=== PATIENT | female | born 1930 | race Caucasian/White ===

== ENCOUNTER 2016-10-22 09:15 | Observation (INO) | payer MEDICARE, BC ==
--- NOTE | 2016-10-22 09:36 | ED ---
General Adult HPI - General Stated complaint: chest pain Time Seen by Provider: 10/22/16 09:15 Source: RN notes reviewed - History of Present Illness Initial comments: This is an 86-year-old female comes in because of left-sided chest pain. Patient has an extremely poor historian. Patient does state the pain is underneath her breast is unable to coming what type of pain she is unable to tell me if there is any associated pain or radiation. Patient denies any increased difficulty breathing. Patient states her abdomen hurts as well. Patient is nonspecific as to where her abdomen hurts. Patient denies any recent fever. Patient denies a cough. Patient denies any nausea vomiting diarrhea. Patient denies any recent injury or trauma. Patient denies headache patient denies any numbness or focal weakness. - Related Data Home Medications Medication Instructions Recorded Confirmed Furosemide [Lasix] 40 mg PO QAM 04/19/15 10/22/16 NIFEdipine [NIFEdipine ER] 30 mg PO DAILY 01/07/16 10/22/16 ALPRAZolam [Xanax] 0.5 mg PO TID PRN 07/01/16 10/22/16 Furosemide [Lasix] 20 mg PO HS 07/01/16 10/22/16 Ibuprofen [Motrin] 400 mg PO Q12H PRN 10/22/16 10/22/16 Ondansetron Odt [Zofran Odt] 4 mg PO Q8H PRN 10/22/16 10/22/16 metFORMIN HCL [Glucophage] 1,000 mg PO BID-W/MEALS 10/22/16 10/22/16 Previous Rx's Medication Instructions Recorded Omeprazole [PriLOSEC] 20 mg PO AC-BRKFST #30 cap 12/16/15 Allergies Allergy/AdvReac Type Severity Reaction Status Date / Time aspirin AdvReac Abdominal Verified 10/22/16 09:48 Pain Review of Systems ROS Statement: Those systems with pertinent positive or pertinent negative responses have been documented in the HPI. ROS Other: All systems not noted in ROS Statement are negative. Past Medical History Past Medical History: Diabetes Mellitus, GERD/Reflux, Hyperlipidemia, Hypertension, Memory Impairment, Osteoarthritis (OA), Skin Disorder Additional Past Medical History / Comment(s): NIDDM type II, cervical pain- wears cervical collar, heart murmur, aortic stenosis, tricuspid regurgitation, ROSACEA, GOUT, ANEMIA, MIGARAINES,SINUS PROBLEMS, INCONT OF URINE-wears depends at night, short term memory prb, falls, vertigo, bilateral varicosities, lower leg/pedal edema at times. History of Any Multi-Drug Resistant Organisms: None Reported Past Surgical History: Hysterectomy Additional Past Surgical History / Comment(s): BOWEL NICKED DURING A COLONOSCOPY HAD SX TO CORRECT. MANUEL CATARACTS-LENS IMPLANTS, D&C, epidural injections to back Past Anesthesia/Blood Transfusion Reactions: No Reported Reaction Past Psychological History: Anxiety, Depression Additional Psychological History / Comment(s): Pt states she gets depressed sometimes d/t health problems but has no suicidal thoughts or plans. Pt's daughter AND granduaghter lives with her, pt stated gets up with use of cane, can care for self and cooks dinner for her daughter who works but just doing a few things around the house wears her out.pt is retired from the [employer] de[employer]. Smoking Status: Former smoker Past Alcohol Use History: None Reported Additional Past Alcohol Use History / Comment(s): SMOKED FOR 2 YEARS LESS THAN 1 PPD, QUIT 1955 Past Drug Use History: None Reported - Past Family History Mother Family Medical History: Myocardial Infarction ([place]) Additional Family Medical History / Comment(s): from [place] age 60 Father Additional Family Medical History / Comment(s): in his 80's from old age. General Exam - General Exam Comments Initial Comments: GENERAL: Patient is well-developed and well-nourished. Patient is nontoxic and well- hydrated and is in mild distress. ENT: Neck is soft and supple. No significant lymphadenopathy is noted. Oropharynx is clear. Moist mucous membranes. Neck has full range of motion without eliciting any pain. EYES: The sclera were anicteric and conjunctiva were pink and moist. Extraocular movements were intact and pupils were equal round and reactive to light. Eyelids were unremarkable. PULMONARY: Unlabored respirations. Good breath sounds bilaterally. No audible rales rhonchi or wheezing was noted. CARDIOVASCULAR: There is a regular rate and rhythm without any murmurs gallops or rubs. ABDOMEN: Soft and nontender with normal bowel sounds. No palpable organomegaly was noted. There is no palpable pulsatile mass. SKIN: Skin is clear with no lesions or rashes and otherwise unremarkable. NEUROLOGIC: Patient is alert and oriented x3. Cranial nerves II through XII are grossly intact. Motor and sensory are also intact. Normal speech, volume and content. Symmetrical smile. MUSCULOSKELETAL: Normal extremities with adequate strength and full range of motion. No lower extremity swelling or edema. No calf tenderness. LYMPHATICS: No significant lymphadenopathy is noted PSYCHIATRIC: Normal psychiatric evaluation. Normal interpersonal interactions appears functionally intact in deals appropriately with others. No signs of depression. No signs of anxiety. Course Vital Signs 10/22/16 10:10 Temperature 97.4 F L Pulse Rate 80 Respiratory 16 Rate Blood Pressure 174/93 O2 Sat by Pulse 98 Oximetry Medical Decision Making - Medical Decision Making EKG shows sinus bradycardia at 57 bpm. It was 228 QRSs 1:30 QT interval 472 QTC is 459. Patient's EKG has a right bundle branch block I compared the EKG to an old EKG and there were no acute changes noted. Chest x-ray shows no acute abnormality. I went back into reevaluate the patient she continues to have chest pain just under the left breast. I spoke with Dr. Bryan he agreed to admit the patient admitted the patient would be admitting orders. - Lab Data Result diagrams: 10/22/16 10:40 10/22/16 10:40 Lab Results 10/22/16 10/22/16 10/22/16 Range/Units 10:40 10:40 10:40 WBC 3.3 L (3.8-10.6) k/uL RBC 3.98 (3.80-5.40) m/uL Hgb 12.3 (11.4-16.0) gm/dL Hct 38.5 (34.0-46.0) % MCV 96.8 (80.0-100.0) fL MCH 30.9 (25.0-35.0) pg MCHC 31.9 (31.0-37.0) g/dL RDW 12.8 (11.5-15.5) % Plt Count 185 (150-450) k/uL Neutrophils % 59 % Lymphocytes % 28 % Monocytes % 6 % Eosinophils % 4 % Basophils % 1 % Neutrophils # 2.0 (1.3-7.7) k/uL Lymphocytes # 0.9 L (1.0-4.8) k/uL Monocytes # 0.2 (0-1.0) k/uL Eosinophils # 0.1 (0-0.7) k/uL Basophils # 0.0 (0-0.2) k/uL PT 10.0 (9.0-12.0) sec INR 1.0 (<1.1) APTT 23.1 (22.0-30.0) sec D-Dimer 0.40 (<0.60) mg/L FEU Sodium (137-145) mmol/L Potassium (3.5-5.1) mmol/L Chloride (98-107) mmol/L Carbon Dioxide (22-30) mmol/L Anion Gap mmol/L BUN (7-17) mg/dL Creatinine (0.52-1.04) mg/dL Est GFR (MDRD) Af Amer (>60 ml/min/1.73 sqM) Est GFR (MDRD) Non-Af (>60 ml/min/1.73 sqM) Glucose (74-99) mg/dL Plasma Lactic Acid Thad (0.7-2.0) mmol/L Calcium (8.4-10.2) mg/dL Magnesium (1.6-2.3) mg/dL Total Bilirubin (0.2-1.3) mg/dL AST (14-36) U/L ALT (9-52) U/L Alkaline Phosphatase (38-126) U/L Total Creatine Kinase 54 (30-135) U/L CK-MB (CK-2) 2.2 (0.0-2.4) ng/mL CK-MB (CK-2) Rel Index 4.1 Troponin I <0.012 (0.000-0.034) ng/mL NT-Pro-B Natriuret Pep pg/mL Total Protein (6.3-8.2) g/dL Albumin (3.5-5.0) g/dL Urine Color Urine Appearance (Clear) Urine pH (5.0-8.0) Ur Specific [place] (1.001-1.035) Urine Protein (Negative) Urine Glucose (UA) (Negative) Urine Ketones (Negative) Urine Blood (Negative) Urine Nitrate (Negative) Urine Bilirubin (Negative) Urine Urobilinogen (<2.0) mg/dL Ur Leukocyte Esterase (Negative) Urine RBC (0-5) /hpf Urine WBC (0-5) /hpf Urine Bacteria (None) /hpf Urine Mucus (None) /hpf 10/22/16 10/22/16 10/22/16 Range/Units 10:40 10:40 10:40 WBC (3.8-10.6) k/uL RBC (3.80-5.40) m/uL Hgb (11.4-16.0) gm/dL Hct (34.0-46.0) % MCV (80.0-100.0) fL MCH (25.0-35.0) pg MCHC (31.0-37.0) g/dL RDW (11.5-15.5) % Plt Count (150-450) k/uL Neutrophils % % Lymphocytes % % Monocytes % % Eosinophils % % Basophils % % Neutrophils # (1.3-7.7) k/uL Lymphocytes # (1.0-4.8) k/uL Monocytes # (0-1.0) k/uL Eosinophils # (0-0.7) k/uL Basophils # (0-0.2) k/uL PT (9.0-12.0) sec INR (<1.1) APTT (22.0-30.0) sec D-Dimer (<0.60) mg/L FEU Sodium 146 H (137-145) mmol/L Potassium 4.4 (3.5-5.1) mmol/L Chloride 103 (98-107) mmol/L Carbon Dioxide 30 (22-30) mmol/L Anion Gap 13 mmol/L BUN 26 H (7-17) mg/dL Creatinine 0.86 (0.52-1.04) mg/dL Est GFR (MDRD) Af Amer >60 (>60 ml/min/1.73 sqM) Est GFR (MDRD) Non-Af >60 (>60 ml/min/1.73 sqM) Glucose 133 H (74-99) mg/dL Plasma Lactic Acid Thad 1.1 (0.7-2.0) mmol/L Calcium 9.5 (8.4-10.2) mg/dL Magnesium 1.9 (1.6-2.3) mg/dL Total Bilirubin 0.5 (0.2-1.3) mg/dL AST 27 (14-36) U/L ALT 28 (9-52) U/L Alkaline Phosphatase 67 (38-126) U/L Total Creatine Kinase (30-135) U/L CK-MB (CK-2) (0.0-2.4) ng/mL CK-MB (CK-2) Rel Index Troponin I (0.000-0.034) ng/mL NT-Pro-B Natriuret Pep 316 pg/mL Total Protein 7.0 (6.3-8.2) g/dL Albumin 4.0 (3.5-5.0) g/dL Urine Color Urine Appearance (Clear) Urine pH (5.0-8.0) Ur Specific [place] (1.001-1.035) Urine Protein (Negative) Urine Glucose (UA) (Negative) Urine Ketones (Negative) Urine Blood (Negative) Urine Nitrate (Negative) Urine Bilirubin (Negative) Urine Urobilinogen (<2.0) mg/dL Ur Leukocyte Esterase (Negative) Urine RBC (0-5) /hpf Urine WBC (0-5) /hpf Urine Bacteria (None) /hpf Urine Mucus (None) /hpf 10/22/16 Range/Units 12:00 WBC (3.8-10.6) k/uL RBC (3.80-5.40) m/uL Hgb (11.4-16.0) gm/dL Hct (34.0-46.0) % MCV (80.0-100.0) fL MCH (25.0-35.0) pg MCHC (31.0-37.0) g/dL RDW (11.5-15.5) % Plt Count (150-450) k/uL Neutrophils % % Lymphocytes % % Monocytes % % Eosinophils % % Basophils % % Neutrophils # (1.3-7.7) k/uL Lymphocytes # (1.0-4.8) k/uL Monocytes # (0-1.0) k/uL Eosinophils # (0-0.7) k/uL Basophils # (0-0.2) k/uL PT (9.0-12.0) sec INR (<1.1) APTT (22.0-30.0) sec D-Dimer (<0.60) mg/L FEU Sodium (137-145) mmol/L Potassium (3.5-5.1) mmol/L Chloride (98-107) mmol/L Carbon Dioxide (22-30) mmol/L Anion Gap mmol/L BUN (7-17) mg/dL Creatinine (0.52-1.04) mg/dL Est GFR (MDRD) Af Amer (>60 ml/min/1.73 sqM) Est GFR (MDRD) Non-Af (>60 ml/min/1.73 sqM) Glucose (74-99) mg/dL Plasma Lactic Acid Thad (0.7-2.0) mmol/L Calcium (8.4-10.2) mg/dL Magnesium (1.6-2.3) mg/dL Total Bilirubin (0.2-1.3) mg/dL AST (14-36) U/L ALT (9-52) U/L Alkaline Phosphatase (38-126) U/L Total Creatine Kinase (30-135) U/L CK-MB (CK-2) (0.0-2.4) ng/mL CK-MB (CK-2) Rel Index Troponin I (0.000-0.034) ng/mL NT-Pro-B Natriuret Pep pg/mL Total Protein (6.3-8.2) g/dL Albumin (3.5-5.0) g/dL Urine Color Colorless Urine Appearance Clear (Clear) Urine pH 7.5 (5.0-8.0) Ur Specific [place] 1.005 (1.001-1.035) Urine Protein Negative (Negative) Urine Glucose (UA) Negative (Negative) Urine Ketones Negative (Negative) Urine Blood Negative (Negative) Urine Nitrate Negative (Negative) Urine Bilirubin Negative (Negative) Urine Urobilinogen <2.0 (<2.0) mg/dL Ur Leukocyte Esterase Trace H (Negative) Urine RBC <1 (0-5) /hpf Urine WBC 3 (0-5) /hpf Urine Bacteria Rare H (None) /hpf Urine Mucus Rare H (None) /hpf Disposition Clinical Impression: Chest pain Disposition: ADMITTED IP TO THIS [facility] Referrals: Scottie Bain DO [Primary Care Provider] - 1-2 days Time of Disposition: 12:58
--- NOTE | 2016-10-22 11:09 | XR ---
EXAMINATION TYPE: XR chest 2V DATE OF EXAM: 10/22/2016 11:03 AM HISTORY: Left-sided chest pain. REFERENCE: Previous study dated 07/01/2016. FINDINGS: The lungs are clear. The heart is mildly enlarged. Pleural spaces are clear. IMPRESSION: MILD CARDIOMEGALY.
[2016-10-22 11:52] LABS: ALT 28 U/L (9-52); AST 27 U/L (14-36); Alkaline Phosphatase 67 U/L (38-126); Anion Gap 13 mmol/L; Blood Urea Nitrogen 26 mg/dL (7-17); Calcium 9.5 mg/dL (8.4-10.2); Carbon Dioxide 30 mmol/L (22-30); Chloride 103 mmol/L (98-107); Glucose 133 mg/dL (74-99); Magnesium 1.9 mg/dL (1.6-2.3); Non-African American GFR(MDRD) >60 (>60 ml/min/1.73 sqM); Potassium 4.4 mmol/L (3.5-5.1); Sodium 146 mmol/L (137-145); Total Bilirubin 0.5 mg/dL (0.2-1.3)
[2016-10-22 11:53] LABS: Basophils % (A) 1 %; CH 30.7; CHCM 31.8; Eosinophils # (A) 0.1 k/uL (0-0.7); Eosinophils % (A) 4 %; HCT 38.5 % (34.0-46.0); HDW 2.36; HGB 12.3 gm/dL (11.4-16.0); Luc # (Auto) 0.09; Luc % (Auto) 3; Lymphocytes # (A) 0.9 k/uL (1.0-4.8); Lymphocytes % (A) 28 %; MCH 30.9 pg (25.0-35.0); MCHC 31.9 g/dL (31.0-37.0); MCV 96.8 fL (80.0-100.0); Mean Platelet Volume 6.8; Monocytes # (A) 0.2 k/uL (0-1.0); Monocytes % (A) 6 %; Neutrophils % (A) 59 %; RBC 3.98 m/uL (3.80-5.40); RDW 12.8 % (11.5-15.5); WBC 3.3 k/uL (3.8-10.6); WBC (Perox) 3.34
[2016-10-22 11:56] LABS: Creatine Kinase 54 U/L (30-135)
[2016-10-22 11:57] LABS: Partial Thromboplastin Time 23.1 sec (22.0-30.0)
[2016-10-22 12:08] LABS: Creatine Kinase MB 2.2 ng/mL (0.0-2.4); Troponin I <0.012 ng/mL (0.000-0.034)
[2016-10-22 12:44] LABS: Appearance,Urine Clear (Clear); Bacteria,Urine Rare /hpf; Bilirubin,Urine Negative (Negative); Glucose,Urine (UA) Negative (Negative); Ketones,Urine Negative (Negative); Leukocyte Esterase,Urine Trace (Negative); Mucus,Urine Rare /hpf; Nitrite,Urine Negative (Negative); PH, Urine 7.5 (5.0-8.0); Particle Count 27963; Protein,Urine Negative (Negative); RBC,Urine <1 /hpf (0-5); Specific Gravity,Urine 1.005 (1.001-1.035); UA Billing (MACRO vs. MICRO) MICRO; Urobilinogen,Urine <2.0 mg/dL (<2.0); WBC,Urine 3 /hpf (0-5)
[2016-10-22] MEDS ORDERED: NITROGLYCERIN SL TABS 0.4 MG TAB SUBLINGUAL PRN (12:58)
[2016-10-22] MEDS ORDERED: MORPHINE SULFATE 2 MG/ML SYRINGE IVP ONE (13:00)
[2016-10-22 18:38] LABS: Creatine Kinase MB 1.4 ng/mL (0.0-2.4); Troponin I 0.015 ng/mL (0.000-0.034)
[2016-10-22] MEDS ORDERED: ONDANSETRON ODT 4 MG TAB PO PRN (20:21)
[2016-10-22] MEDS ORDERED: ALPRAZolam 0.5 MG TAB PO PRN (20:21)
[2016-10-22 20:41] LABS: Glucose,Whole Blood 126 mg/dL (75-99)
[2016-10-22] MEDS: NITROGLYCERIN OINT 1 INCH/GM PACKET TOPICAL SCH (21:03)
[2016-10-22] MEDS: metFORMIN 500 MG TAB PO SCH (21:03)
[2016-10-22] MEDS: IBUPROFEN 400 MG TAB PO PRN (21:06)
[2016-10-22 23:39] LABS: Creatine Kinase MB 1.2 ng/mL (0.0-2.4); Troponin I 0.017 ng/mL (0.000-0.034)
[2016-10-23] MEDS: NITROGLYCERIN OINT 1 INCH/GM PACKET TOPICAL SCH ×3 (03:19→12:36)
[2016-10-23] MEDS: IBUPROFEN 400 MG TAB PO PRN (03:20)
[2016-10-23 07:15] LABS: Glucose,Whole Blood 114 mg/dL (75-99)
[2016-10-23] MEDS ORDERED: PANTOPRAZOLE 40 MG TABLET PO SCH (07:30)
[2016-10-23 07:39] LABS: Cholesterol 218 mg/dL (<200); HDL Cholesterol 53 mg/dL (40-60); Triglycerides 140 mg/dL (<150)
[2016-10-23] MEDS ORDERED: FUROSEMIDE 40 MG TAB PO SCH (09:00)
[2016-10-23] MEDS ORDERED: NIFEdipine XL 30 MG TAB.ER.24 PO SCH (09:00)
--- NOTE | 2016-10-23 09:57 | P.CRDCN ---
History of Present Illness Consult date: 10/23/16 History of present illness: This is a 86-year-old female who has been admitted to the hospital on several occasions with atypical chest pain. Patient again came to the hospital with complaints of pain under the left breast and left upper abdomen area associated with some tenderness. The pain doesn't seem to change too much with phase of respiration. Her cardiac enzymes are negative. EKGs showed similar findings as before with right bundle-branch block and nonspecific ST-T abnormalities. She does have moderate aortic stenosis and follows with Dr. Pearson regularly. Given her atypical chest pain and normal enzymes and also normal stress test done in September 2015, I'm not recommending any further cardiac workup. Patient could be treated symptomatically and be discharged. Follow-up with Dr. Pearson in one week time Review of Systems As per the chart Past Medical History Past Medical History: Chest Pain / Angina, Diabetes Mellitus, GERD/Reflux, Hyperlipidemia, Hypertension, Memory Impairment, Osteoarthritis (OA), Skin Disorder Additional Past Medical History / Comment(s): NIDDM type II, cervical pain- wears cervical collar, OA multiple joints, heart murmur, aortic stenosis, tricuspid regurgitation, ROSACEA, GOUT, ANEMIA, MIGARAINES,SINUS PROBLEMS, INCONT OF URINE-wears depends at night, short term memory prb, falls, vertigo, bilateral varicosities, lower leg/pedal edema at times. History of Any Multi-Drug Resistant Organisms: None Reported Past Surgical History: Hysterectomy Additional Past Surgical History / Comment(s): BOWEL NICKED DURING A COLONOSCOPY HAD SX TO CORRECT. MANUEL CATARACTS-LENS IMPLANTS, D&C, epidural injections to back Past Anesthesia/Blood Transfusion Reactions: No Reported Reaction Past Psychological History: Anxiety, Depression Additional Psychological History / Comment(s): Pt states she gets depressed sometimes d/t health problems but has no suicidal thoughts or plans. Pt's daughter AND granduaghter lives with her, pt stated gets up with use of cane, can care for self and cooks dinner for her daughter who works but just doing a few things around the house wears her out. 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 Smoking Status: Former smoker Past Alcohol Use History: None Reported Additional Past Alcohol Use History / Comment(s): SMOKED FOR 2 YEARS LESS THAN 1 PPD, QUIT 1956 Past Drug Use History: None Reported - Past Family History Mother Family Medical History: Myocardial Infarction ([place]) Additional Family Medical History / Comment(s): from [place] age 60 Father Additional Family Medical History / Comment(s): in his 80's from old age. Medications and Allergies Home Medications Medication Instructions Recorded Confirmed Type Furosemide [Lasix] 40 mg PO QAM 04/19/15 10/22/16 History NIFEdipine [NIFEdipine ER] 30 mg PO DAILY 01/07/16 10/22/16 History ALPRAZolam [Xanax] 0.5 mg PO TID PRN 07/01/16 10/22/16 History Furosemide [Lasix] 20 mg PO HS 07/01/16 10/22/16 History Ibuprofen [Motrin] 400 mg PO Q12H PRN 10/22/16 10/22/16 History Ondansetron Odt [Zofran Odt] 4 mg PO Q8H PRN 10/22/16 10/22/16 History metFORMIN HCL [Glucophage] 1,000 mg PO BID-W/MEALS 10/22/16 10/22/16 History Allergies Allergy/AdvReac Type Severity Reaction Status Date / Time aspirin AdvReac Abdominal Verified 10/22/16 09:48 Pain Physical Exam Vitals: Vital Signs Temp Pulse Pulse Resp BP BP Pulse Ox 10/23/16 08:00 52 L 18 10/23/16 07:15 97.5 F L 52 L 18 188/94 99 10/23/16 04:00 97.5 F L 56 L 16 183/82 97 10/23/16 00:00 53 L 16 10/22/16 23:57 97.6 F 53 L 16 135/63 96 10/22/16 20:00 98.8 F 67 16 163/66 99 10/22/16 19:16 98.1 F 12 172/74 100 10/22/16 18:00 98.1 F 59 L 18 152/69 97 10/22/16 15:23 56 L 18 160/71 98 10/22/16 14:52 98.7 F 57 L 16 157/68 Intake and Output 10/22/16 10/23/16 10/23/16 22:59 06:59 14:59 Other: # Voids 2 GENERAL EXAM: Patient is alert and oriented and doesn't appear to be in any acute distress HEENT: Normocephalic. Normal reaction of pupils, equal size, normal range of extraocular motion. No erythema or exudates in the throat. NECK: No masses, no nuchal rigidity. CHEST: No chest wall deformity. LUNGS: Equal air entry with no crackles or wheeze. HEART: S1 and S2 normal and systolic murmur heard in the aortic area ABDOMEN: No hepatosplenomegaly, normal bowel sounds, no guarding or rigidity. SKIN: No rashes CENTRAL NERVOUS SYSTEM: No focal deficits. EXTREMITIES: No cyanosis, clubbing or edema. Results 10/22/16 10:40 10/22/16 10:40 Cardiac Enzymes 10/22/16 10/22/16 Range/Units 17:38 22:51 CK-MB (CK-2) 1.4 1.2 (0.0-2.4) ng/mL Troponin I 0.015 0.017 (0.000-0.034) ng/mL Lipids 10/23/16 Range/Units 06:39 Triglycerides 140 (<150) mg/dL Cholesterol 218 H (<200) mg/dL HDL Cholesterol 53 (40-60) mg/dL Current Medications Generic Name Dose Route Start Last Admin Trade Name Freq PRN Reason Stop Dose Admin Alprazolam 0.5 mg 10/22/16 20:21 10/22/16 21:06 Xanax PO 0.5 mg TID PRN Administration Anxiety Furosemide 20 mg 10/23/16 15:00 Lasix PO DAILY@1500 [facility] Furosemide 40 mg 10/23/16 09:00 Lasix PO QAM [facility] Ibuprofen 400 mg 10/22/16 20:21 10/23/16 03:20 Motrin PO 400 mg Q12H PRN Administration Pain Metformin HCl 1,000 mg 10/22/16 20:30 10/22/16 21:03 Glucophage PO Not Given BID-W/MEALS [facility] Nifedipine 30 mg 10/23/16 09:00 Procardia Xl PO DAILY [facility] Nitroglycerin 1 inch 10/22/16 18:00 10/23/16 09:44 Nitro-Bid Oint TOPICAL Not Given Q6HR [facility] Nitroglycerin 0.4 mg 10/22/16 12:58 Nitrostat SUBLINGUAL Q5M PRN Chest Pain Ondansetron HCl 4 mg 01/04/17 20:21 Zofran Odt PO Q8H PRN Nausea Pantoprazole Sodium 40 mg 10/23/16 07:30 Protonix PO AC-BRKFST [facility] Intake and Output 10/22/16 10/23/16 10/23/16 22:59 06:59 14:59 Other: # Voids 2 EKG Interpretations (text) Sinus rhythm with a right bundle branch block and nonspecific ST-T changes Assessment and Plan (1) Chest pain Status: Acute (2) Aortic stenosis Status: Acute (3) Chest wall syndrome Status: Acute Plan: Her chest pains are atypical and noncardiac. Cardiac enzymes are negative. EKGs showed stable findings. She does have moderate aortic stenosis. She could be discharged home on symptomatic medical therapy and have follow-up with Dr. Pearson as an outpatient in one week.
[2016-10-23] MEDS: metFORMIN 500 MG TAB PO SCH (11:00)
[2016-10-23 12:02] VITALS: BP 204/100; PULSE 54; RESP 16; TEMP 97.7
[2016-10-23 12:31] LABS: Glucose,Whole Blood 146 mg/dL (75-99)
--- NOTE | 2016-10-23 14:37 | XR ---
EXAMINATION TYPE: XR foot complete LT DATE OF EXAM: 10/23/2016 2:28 PM CLINICAL HISTORY: pain TECHNIQUE: Frontal, lateral and oblique images of the left foot are obtained. COMPARISON: None. FINDINGS: There is no acute fracture/dislocation evident. The joint spaces appear within normal reilly its. The overlying soft tissue appears unremarkable. IMPRESSION: There is no acute fracture or dislocation. ICD 10 NO FRACTURE, INITIAL EVALUATION
[2016-10-23] MEDS ORDERED: FUROSEMIDE 20 MG TAB PO SCH (15:00)
--- NOTE | 2016-10-23 20:01 | HP ---
H&P and DISCHARGE SUMMARY DATE OF ADMISSION: This patient is an 86-year-old female who came in to the hospital with symptoms of atypical chest pain in the left breast area, left upper abdominal area, and some reproducible tenderness. Patient's pain is about 7/10 in severity; completely resolved at this point of time. ( ) for which I will obtain an x-ray. If that is negative, patient will be discharged. Patient is already on NSAID. Patient's chest pain is not associated with food, nonpleuritic in nature. Denied any lightheadedness or diaphoresis. Patient was evaluated by Cardiology. Troponins ( ) patient had a recent stress test in September 2015 which was negative. No further workup has been ( ) Cardiology and patient will be discharged today. REVIEW OF SYSTEMS: CONSTITUTIONAL: No fever, no malaise, no fatigue. HEENT: No recent visual problems or hearing problems. Denied any sore throat. CARDIOVASCULAR: As mentioned above. PULMONARY: No shortness of breath, no cough, no hemoptysis. GASTROINTESTINAL: No diarrhea, no nausea, no vomiting, no abdominal pain. Normoactive bowel sounds. NEUROLOGICAL: No headaches, no weakness, no numbness. HEMATOLOGICAL: Denies any bleeding or petechiae. GENITOURINARY: Denies any burning micturition, frequency, or urgency. MUSCULOSKELETAL/RHEUMATOLOGICAL: Denies any joint pain, swelling, or any muscle pain. ENDOCRINE: Denies any polyuria or polydipsia. The rest of the 14 point review of systems is negative. Past medical history is significant for: 1. Angina. 2. Diabetes mellitus. 3. Gastroesophageal reflux disease. 4. Hyperlipidemia. 5. Hyperlipidemia. 6. Memory impairment. 7. Osteoarthritis. 8. Skin disorder. 9. Tlu-udbaata-ogdkyltuz diabetes mellitus. 10. Cervical osteoarthritis. 11. Moderate aortic stenosis. 12. Tricuspid regurgitation. 13. Bilateral varicosities. 14. Anxiety. 15. Depression. SOCIAL HISTORY: Patient is a former smoker. Denied any alcohol abuse or any drug abuse. FAMILY HISTORY: Mother had myocardial infarction; at age 60. Father at age 80 because of old age. Home medications include: 1. Lasix. 2. Nifedipine. 3. Alprazolam. 4. Ibuprofen. 5. Ondansetron. 6. Metformin. ALLERGIES: ASPIRIN. PHYSICAL EXAMINATION: VITAL SIGNS: Temperature 97.5, pulse of 52, respiratory rate of 18. Blood pressure is 188/94. Saturating at 98% on room air. GENERAL: The patient is alert and oriented x3, not in any acute distress. Well developed, well nourished. HEENT: Pupils are round and equally reacting to light. EOMI. No scleral icterus. No conjunctival pallor. Normocephalic, atraumatic. No pharyngeal erythema. No thyromegaly. CARDIOVASCULAR: S1 and S2 present. No murmurs, rubs, or gallops. PULMONARY: Chest is clear to auscultation, no wheezing or crackles. ABDOMEN: Soft, nontender, nondistended, normoactive bowel sounds. No palpable organomegaly. MUSCULOSKELETAL: No joint swelling or deformity. EXTREMITIES: No cyanosis, clubbing, or pedal edema. NEUROLOGICAL: Gross neurological examination did not reveal any focal deficits. SKIN: No rashes. LABORATORY DATA: CBC, CMP, troponins, EKG all are negative. ASSESSMENT AND PLAN: 1. Chest pain, atypical in nature. No further intervention is necessary. Patient's chest pain is either psychosomatic or musculoskeletal in nature. Patient will be discharged today. 2. Depression and anxiety disorder. 3. Diabetes mellitus, type 2. 4. Gastroesophageal reflux disease. 5. Hypertension. For above-mentioned chronic medical problems, I will go ahead and continue her home medications. Patient has moderate aortic stenosis, asymptomatic at this point of time. No further intervention is being recommended by Cardiology at this time. This dictation is both H&P and discharge summary. Patient will follow up with her primary care physician in 3 to 7 days. Activity as tolerated. Cardiac and diabetic 2000-calorie diet.
== END 2016-10-23 15:30 | disposition home or self-care (01) ==
LOC: EC 09:15 → 3OBS 13:00
PROVIDERS: ADMIT Internal Medicine; ATTEND Internal Medicine
DX: R07.1 Chest pain on breathing (principal); F32.9 Major depressive disorder, single episode, unspecified; F41.9 Anxiety disorder, unspecified; E11.9 Type 2 diabetes mellitus without complications; K21.9 Gastro-esophageal reflux disease without esophagitis; I10 Essential (primary) hypertension; I08.2 Rheumatic disorders of both aortic and tricuspid valves; I45.10 Unspecified right bundle-branch block; E78.5 Hyperlipidemia, unspecified; M15.9 Polyosteoarthritis, unspecified; R41.3 Other amnesia; L71.9 Rosacea, unspecified; M10.9 Gout, unspecified; R32 Unspecified urinary incontinence; Z96.1 Presence of intraocular lens; Z79.899 Other long term (current) drug therapy; Z79.1 Long term (current) use of non-steroidal anti-inflammatories (NSAID); Z79.84 Long term (current) use of oral hypoglycemic drugs; Z87.891 Personal history of nicotine dependence; Z82.49 Family history of ischemic heart disease and other diseases of the circulatory system
CPT/HCPCS: 99285; 96374; 51798; 36415; 93005; 85379; 83880; 80061; 80053; 82550; 82553; 83605; 83735; 84484; 85025; 85610; 85730; 81001; 87040; 71020; 73630; G0378 ×2; J2270

== ENCOUNTER 2016-11-21 12:15 | Emergency (ER) | payer MEDICARE, BC ==
[2016-11-21 12:49] VITALS: BP 176/83; PULSE 59; RESP 16; TEMP 97.1
--- NOTE | 2016-11-21 13:07 | ED ---
General Adult HPI - General Chief complaint: Extremity Injury, Lower Stated complaint: lt hip pain Time Seen by Provider: 11/21/16 12:54 Source: patient, family, RN notes reviewed Mode of arrival: wheelchair Limitations: no limitations - History of Present Illness Initial comments: This is an 86yo female presents with left heel pain that started today. Patient states she may have hit the left foot with her cane but she is unsure. Patient states she noticed the pain while she was sleeping. Patient has been able to ambulate with a cane as usual. Patient denies any numbness/weakness/ tingling. Patient also complains of some pain to the medial aspect of the left ankle. Patient denies any right ankle or heel pain. Patient is not on any anticoagulants. Patient is a poor historian. Patient's daughter is present in the room with her today and states that patient normally has swelling to bilateral ankles. Patient is on Lasix. Daughter denies knowing of any falls or cause of the ankle pain. Patient denies any recent fever, chills, shortness breath, chest pain, abdominal pain, nausea/vomiting/diarrhea, back pain, hematuria, headache, or visual changes, or any other complaints. - Related Data Home Medications Medication Instructions Recorded Confirmed Furosemide [Lasix] 40 mg PO QAM 04/19/15 11/21/16 NIFEdipine [NIFEdipine ER] 30 mg PO DAILY 01/07/16 11/21/16 ALPRAZolam [Xanax] 0.5 mg PO TID PRN 07/01/16 11/21/16 Furosemide [Lasix] 20 mg PO HS 07/01/16 11/21/16 Ibuprofen [Motrin] 400 mg PO Q12H PRN 10/22/16 11/21/16 Ondansetron Odt [Zofran Odt] 4 mg PO Q8H PRN 10/22/16 11/21/16 metFORMIN HCL [Glucophage] 1,000 mg PO BID-W/MEALS 10/22/16 11/21/16 Previous Rx's Medication Instructions Recorded Omeprazole [PriLOSEC] 20 mg PO AC-BRKFST #30 cap 12/16/15 Allergies Allergy/AdvReac Type Severity Reaction Status Date / Time aspirin AdvReac Abdominal Verified 11/21/16 12:48 Pain Review of Systems ROS Statement: Those systems with pertinent positive or pertinent negative responses have been documented in the HPI. ROS Other: All systems not noted in ROS Statement are negative. Past Medical History Past Medical History: Chest Pain / Angina, Diabetes Mellitus, GERD/Reflux, Hyperlipidemia, Hypertension, Memory Impairment, Osteoarthritis (OA), Skin Disorder Additional Past Medical History / Comment(s): NIDDM type II, cervical pain- wears cervical collar, OA multiple joints, heart murmur, aortic stenosis, tricuspid regurgitation, ROSACEA, GOUT, ANEMIA, MIGARAINES,SINUS PROBLEMS, INCONT OF URINE-wears depends at night, short term memory prb, falls, vertigo, bilateral varicosities, lower leg/pedal edema at times. History of Any Multi-Drug Resistant Organisms: None Reported Past Surgical History: Hysterectomy Additional Past Surgical History / Comment(s): BOWEL NICKED DURING A COLONOSCOPY HAD SX TO CORRECT. MANUEL CATARACTS-LENS IMPLANTS, D&C, epidural injections to back Past Anesthesia/Blood Transfusion Reactions: No Reported Reaction Past Psychological History: Anxiety, Depression Additional Psychological History / Comment(s): Pt states she gets depressed sometimes d/t health problems but has no suicidal thoughts or plans. Pt's daughter AND granduaghter lives with her, pt stated gets up with use of cane, can care for self and cooks dinner for her daughter who works but just doing a few things around the house wears her out. 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 Smoking Status: Former smoker Past Alcohol Use History: None Reported Additional Past Alcohol Use History / Comment(s): SMOKED FOR 2 YEARS LESS THAN 1 PPD, QUIT 195 Past Drug Use History: None Reported - Past Family History Mother Family Medical History: Myocardial Infarction ([place]) Additional Family Medical History / Comment(s): from [place] age 60 Father Additional Family Medical History / Comment(s): in his 80's from old age. General Exam - General Exam Comments Initial Comments: General: The patient is awake and alert, in no distress, and does not appear acutely ill. Neck: The neck is supple, there is no tenderness or JVD. Cardiovascular: There is a regular rate and rhythm. No murmur, rub or gallop is appreciated. Respiratory: Lungs are clear to auscultation, respirations are non-labored, breath sounds are equal. No wheezes, stridor, rales, or rhonchi. Musculoskeletal: patient's socks are very tightfitting around the ankles. Patient is tender to palpation over the medial aspect of the left ankle and to the left heel. Patient has no tenderness to palpation of the left foot. Patient has no tenderness to palpation of the right ankle or foot. There is 2+ pitting edema to bilateral ankles and feet. The swelling is slightly worse in the left foot as compared to the right. There is tenderness to palpation over the plantar fascia and pain is increased with forced dorsiflexion of the toes of the left foot. Full range of motion, strength 5/5 and Sensation intact. Dorsalis pedis pulses are 2+ bilaterally. Capillary refill is normal at less than 2 seconds. No calf tenderness bilaterally. Neurological: A&O x 3. CN II-XII intact, There are no obvious motor or sensory deficits. Coordination appears grossly intact. Speech is normal. Skin: There is bilateral 1+ pitting edema to ankles and feet. Skin is warm and dry and no rashes or lesions are noted. Psychiatric: Normal mood and affect. Limitations: no limitations Course Vital Signs 11/21/16 12:45 Temperature 97.1 F L Pulse Rate 59 L Respiratory 16 Rate Blood Pressure 176/83 O2 Sat by Pulse 99 Oximetry Medical Decision Making - Medical Decision Making Is an 86-year-old female who presents with left heel pain and left ankle pain started this morning. Patient is a poor historian and daughters present in the room. Neither patient or daughter knows the trigger of the left ankle/heel pain. On physical exam patient's socks are very tightfitting around the ankles. Patient is tender to palpation over the medial aspect of the left ankle and to the left heel. Patient has no tenderness to palpation of the left foot. Patient has no tenderness to palpation of the right ankle or foot. There is 2+ pitting edema to bilateral ankles and feet. The swelling is slightly worse in the left foot as compared to the right. There is tenderness to palpation over the plantar fascia and pain is increased with forced flexion of the toes of the left foot. Full range of motion, strength 5/5 and Sensation intact. Dorsalis pedis pulses are 2+ bilaterally. Capillary refill is normal at less than 2 seconds. No calf tenderness bilaterally. An x-ray of the left ankle and foot was done and reviewed showing: X-ray left ankle: There is no acute fracture or dislocation in the left ankle. Demineralization and moderate diffuse subcutaneous edema noted. Report reviewed by Dr. Mendez. X-ray left foot: There is new moderate diffuse subcutaneous edema on the left foot. Report red by Dr. Mendez. I discussed results with patient and her daughter. I discussed looser fitting socks to help prevent the tightening of the socks around the ankle causing increased swelling in the feet. Discussed that the swelling could be the cause of her pain. Discussed that plantar fasciitis can sometimes cause heel pain. Discussed [id number] Tylenol or Motrin as needed for any pain. I discussed that If symptoms do not improve in the next 7 days repeat x-rays may be needed to rule out occult fracture. Patient has no history of trauma or injury to the left foot. Patient has been walking without difficulty according to daughter. Patient is already on Lasix. Discussed rest, ice and elevating the legs. I discussed return parameters. I discussed that the patient should follow-up with her primary care physician tomorrow. I discussed the patient to return to the [facility] for any worsening symptoms or for any further concerns. Discussed that patient should follow up with PCP in one to 2 days or return to the [facility] for any worsening symptoms or for any further concerns. Patient was receptive to this plan and patient will be discharged home. I discussed his case with attending physician Dr. Apodaca who agrees the plan as stated above. Disposition Clinical Impression: Pain of left heel Disposition: HOME SELF-CARE Condition: Good Instructions: Plantar Fasciitis (ED) Additional Instructions: Please rest, ice, elevate and use looser socks to prevent excess swelling in the feet. Please follow-up with her primary care physician tomorrow. Please use [id number] Tylenol and or Motrin as needed for any pain. If symptoms do not improve in the next 7 days repeat x-rays may be needed to rule out occult fracture. Please follow-up with family doctor in the next 2 days of symptoms have not improved. Please return to emergency room if the symptoms increase or worsen or for any other concerns. Referrals: Scottie Bain DO [Primary Care Provider] - 1-2 days Time of Disposition: 13:45
--- NOTE | 2016-11-21 13:31 | XR ---
EXAMINATION TYPE: XR ankle complete LT DATE OF EXAM: 11/21/2016 1:18 PM CLINICAL HISTORY: Swelling and bruising with pain. TECHNIQUE: Frontal, lateral and oblique images of the left ankle are obtained. COMPARISON: None. FINDINGS: Osseous structures are demineralized which is noted to lower radiographic sensitivity Ther e is no acute fracture/dislocation evident in the left ankle. The ankle mortise appears within adelaide l limits. Small superior calcaneal spur is present. Moderate diffuse subcutaneous edema is seen. Vasc ular desiccation in the posterior soft tissue is noted. IMPRESSION: There is no acute fracture or dislocation in the left ankle. Demineralization and modera te diffuse subcutaneous edema noted.
--- NOTE | 2016-11-21 13:32 | XR ---
EXAMINATION TYPE: XR foot limited LT DATE OF EXAM: 11/21/2016 1:18 PM CLINICAL HISTORY: Swelling and bruising left foot. TECHNIQUE: Frontal, and lateral images of the left foot are obtained. COMPARISON: Left foot x-ray October 23, 2016. FINDINGS: Osseous structures are demineralized which is noted to lower radiographic sensitivity. The re is no acute fracture/dislocation evident in the left foot. The joint spaces in the left foot appe ar within normal limits. Moderate diffuse subcutaneous edema is present with progression from prior s tudy identified, for reference dorsal surface metatarsal level on lateral view. IMPRESSION: There is new moderate diffuse subcutaneous edema in the left foot.
== END 2016-11-21 14:21 | disposition home or self-care (01) ==
LOC: EC 12:15
DX: M79.672 Pain in left foot (principal); I10 Essential (primary) hypertension; M25.572 Pain in left ankle and joints of left foot; E11.9 Type 2 diabetes mellitus without complications; M19.90 Unspecified osteoarthritis, unspecified site; M54.2 Cervicalgia; F41.9 Anxiety disorder, unspecified; R32 Unspecified urinary incontinence; Z87.891 Personal history of nicotine dependence; Z79.899 Other long term (current) drug therapy; Z79.84 Long term (current) use of oral hypoglycemic drugs; Z88.6 Allergy status to analgesic agent
CPT/HCPCS: 99284

== ENCOUNTER 2017-09-14 18:46 | Emergency (ER) | payer MEDICARE, BC ==
[2017-09-14 19:18] VITALS: RESP 18
--- NOTE | 2017-09-14 21:21 | ED ---
General Adult HPI - General Chief complaint: Extremity Injury, Lower Stated complaint: R foot injury Time Seen by Provider: 09/14/17 21:05 Source: patient, family, RN notes reviewed Mode of arrival: wheelchair Limitations: no limitations - History of Present Illness Initial comments: 87-year-old female presents to the emergency department with a chief complaint of right foot pain. Patient states that she ran in to furniture and her regimen since had pain to the right foot. She is able to ambulate. She has noticed some bruising along the foot and states it is painful to touch the right big toe. There has been no other symptoms in the patient. She states she chronically is bilateral lower extremity swelling and that is not changed. Patient denies any recent fever, chills, shortness of breath, chest pain, back pain, abdominal pain, nausea vomiting, numbness or tingling, dysuria or hematuria, constipation or diarrhea, headaches or visual changes, or any other current symptoms. - Related Data Home Medications Medication Instructions Recorded Confirmed Furosemide [Lasix] 40 mg PO QAM 04/19/15 11/21/16 NIFEdipine [NIFEdipine ER] 30 mg PO DAILY 01/07/16 11/21/16 ALPRAZolam [Xanax] 0.5 mg PO TID PRN 07/01/16 11/21/16 metFORMIN HCL [Glucophage] 1,000 mg PO BID-W/MEALS 10/22/16 11/21/16 Previous Rx's Medication Instructions Recorded Omeprazole [PriLOSEC] 20 mg PO AC-BRKFST #30 cap 12/16/15 Allergies Allergy/AdvReac Type Severity Reaction Status Date / Time aspirin AdvReac Abdominal Verified 09/14/17 19:18 Pain Review of Systems ROS Statement: Those systems with pertinent positive or pertinent negative responses have been documented in the HPI. ROS Other: All systems not noted in ROS Statement are negative. Past Medical History Past Medical History: Chest Pain / Angina, Diabetes Mellitus, GERD/Reflux, Hyperlipidemia, Hypertension, Memory Impairment, Osteoarthritis (OA), Skin Disorder Additional Past Medical History / Comment(s): NIDDM type II, cervical pain- wears cervical collar, OA multiple joints, heart murmur, aortic stenosis, tricuspid regurgitation, ROSACEA, GOUT, ANEMIA, MIGARAINES,SINUS PROBLEMS, INCONT OF URINE-wears depends at night, short term memory prb, falls, vertigo, bilateral varicosities, lower leg/pedal edema at times. History of Any Multi-Drug Resistant Organisms: None Reported Past Surgical History: Hysterectomy Additional Past Surgical History / Comment(s): BOWEL NICKED DURING A COLONOSCOPY HAD SX TO CORRECT. MANUEL CATARACTS-LENS IMPLANTS, D&C, epidural injections to back Past Anesthesia/Blood Transfusion Reactions: No Reported Reaction Past Psychological History: Anxiety, Depression Smoking Status: Former smoker Past Alcohol Use History: None Reported Past Drug Use History: None Reported - Past Family History Mother Family Medical History: Myocardial Infarction ([place]) Additional Family Medical History / Comment(s): from [place] age 60 Father Additional Family Medical History / Comment(s): in his 80's from old age. General Exam - General Exam Comments Initial Comments: General: The patient is awake and alert, in no distress, and does not appear acutely ill. Neck: The neck is supple, there is no tenderness. Cardiovascular: There is a regular rate and rhythm. No murmur, rub or gallop is appreciated. Respiratory: Lungs are clear to auscultation, respirations are non-labored, breath sounds are equal. No wheezes, stridor, rales, or rhonchi. Musculoskeletal: Sensation intact with 2+ pulses. Right lower externa. Full range of motion of the right Foot. Tenderness to patient along the first toe. Some associated ecchymosis noted. Some swelling to the top of her. Patient does appear to have equal bilateral pedal edema. Neurological: CN II-XII intact, There are no obvious motor or sensory deficits. Coordination appears grossly intact. Speech is normal. Skin: Skin is warm and dry and no rashes or lesions are noted. Psychiatric: Normal mood and affect. Limitations: no limitations Course Vital Signs 09/14/17 19:13 Temperature 99 F Pulse Rate 67 Respiratory 18 Rate Blood Pressure 149/69 O2 Sat by Pulse 99 Oximetry Medical Decision Making - Medical Decision Making 87-year-old female emergency department with chief complaint of right foot pain. At this time x-rays reviewed and negative. This time we discussed ice i- STAT Tylenol for the pain. Discussed follow-up return parameters all questions. Patient family stated the [place] management this plan. All questions have been answered. They will be discharged. - Radiology Data Radiology results: report reviewed, image reviewed Disposition Clinical Impression: Contusion of right foot Disposition: HOME SELF-CARE Condition: Stable Instructions: Foot Contusion (ED) Additional Instructions: Please use medication as discussed. Please follow up with family doctor if symptoms have not improved over the next two days. Please return to the emergency room if your symptoms increase or worsen or for any other concerns. Referrals: Scottie Bain DO [Primary Care Provider] - 1-2 days Time of Disposition: 22:09
--- NOTE | 2017-09-14 22:03 | XR ---
EXAMINATION TYPE: XR foot complete RT DATE OF EXAM: 09/14/2017 COMPARISON: NONE HISTORY: Foot pain TECHNIQUE: 3 views FINDINGS: There is osteopenia. Metatarsals appear intact. There is a plantar calcaneal spur. I see no fracture nor dislocation. There is soft tissue swelling of the forefoot. IMPRESSION: Soft tissue swelling. No fracture seen.
[2017-09-14 22:31] VITALS: BP 138/68; PULSE 71; TEMP 99
== END 2017-09-14 22:20 | disposition home or self-care (01) ==
LOC: EC 18:46
DX: S90.31XA Contusion of right foot, initial encounter (principal); R60.0 Localized edema; I10 Essential (primary) hypertension; E11.9 Type 2 diabetes mellitus without complications; Z87.891 Personal history of nicotine dependence; Z79.84 Long term (current) use of oral hypoglycemic drugs; Z79.899 Other long term (current) drug therapy; Z88.6 Allergy status to analgesic agent; Z86.79 Personal history of other diseases of the circulatory system; W22.8XXA Striking against or struck by other objects, initial encounter
CPT/HCPCS: 99283

== ENCOUNTER 2017-12-03 15:17 | Inpatient (IN) | payer MEDICARE, BC ==
--- NOTE | 2017-12-03 18:42 | ED ---
Extremity Problem HPI - General Chief complaint: Extremity Problem,Nontraumatic Stated complaint: Foot Pain Time Seen by Provider: 12/03/17 18:25 Source: patient, family Mode of arrival: wheelchair Limitations: physical limitation - History of Present Illness Initial comments: 87-year-old female patient presents with daughter for evaluation of bilateral lower extremity swelling. Daughter states that swelling has been present for "months". States that she was being treated by her primary care physician with Lasix. States that she was taking 2 tablets a day and he decreased her down to one per day. States that the swelling has worsened over the last 3 days since that switch. She states that the patient's legs are very red. States that there is a wound to the bottom of her right foot which was found by the interdisciplinary professor today. He recommended immediate intervention for the wound. Daughter reports the patient is also been increasingly confused over the last month. She states that she has had no appetite. She is concerned for urinary tract infection. She denies any recent falls or trauma. Denies any recent medication changes other than the Lasix. Patient denies any recent rash, fever, chills, shortness breath, chest pain, abdominal pain, nausea, vomiting, diarrhea , constipation, back pain, numbness, tingling, dizziness, hematuria, dysuria, urinary urgency, urinary frequency, headache, visual changes, or any other complaints. - Related Data Home Medications Medication Instructions Recorded Confirmed Furosemide [Lasix] 20 mg PO QAM 04/19/15 12/03/17 metFORMIN HCL [Glucophage] 1,000 mg PO BID-W/MEALS 10/22/16 12/03/17 Ferrous Sulfate [Feosol] 325 mg PO DAILY 12/03/17 12/03/17 Loratadine [Claritin] 10 mg PO DAILY 12/03/17 12/03/17 Allergies Allergy/AdvReac Type Severity Reaction Status Date / Time aspirin AdvReac Abdominal Verified 12/03/17 18:59 Pain Review of Systems ROS Statement: Those systems with pertinent positive or pertinent negative responses have been documented in the HPI. ROS Other: All systems not noted in ROS Statement are negative. Past Medical History Past Medical History: Chest Pain / Angina, Diabetes Mellitus, GERD/Reflux, Hyperlipidemia, Hypertension, Memory Impairment, Osteoarthritis (OA), Skin Disorder Additional Past Medical History / Comment(s): NIDDM type II, cervical pain- wears cervical collar, OA multiple joints, heart murmur, aortic stenosis, tricuspid regurgitation, ROSACEA, GOUT, ANEMIA, MIGARAINES,SINUS PROBLEMS, INCONT OF URINE-wears depends at night, short term memory prb, falls, vertigo, bilateral varicosities, lower leg/pedal edema at times. History of Any Multi-Drug Resistant Organisms: None Reported Past Surgical History: Hysterectomy Additional Past Surgical History / Comment(s): BOWEL NICKED DURING A COLONOSCOPY HAD SX TO CORRECT. MANUEL CATARACTS-LENS IMPLANTS, D&C, epidural injections to back Past Anesthesia/Blood Transfusion Reactions: No Reported Reaction Past Psychological History: Anxiety, Depression Smoking Status: Former smoker Past Alcohol Use History: None Reported Past Drug Use History: None Reported - Past Family History Mother Family Medical History: Myocardial Infarction ([place]) Additional Family Medical History / Comment(s): from [place] age 60 Father Additional Family Medical History / Comment(s): in his 80's from old age. General Exam Limitations: physical limitation General appearance: alert, in no apparent distress, other (This is a well- developed, well-nourished elderly female patient in no acute distress. Vital signs upon presentation are temperature 99.1F, pulse 56, respirations 18, blood pressure 192/79, pulse ox 99% on room air.) Eye exam: Present: normal appearance, PERRL, EOMI. Absent: scleral icterus, conjunctival injection, periorbital swelling ENT exam: Present: normal exam, normal oropharynx, mucous membranes moist Respiratory exam: Present: normal lung sounds bilaterally. Absent: respiratory distress, wheezes, rales, rhonchi, stridor Cardiovascular Exam: Present: normal rhythm, bradycardia, normal heart sounds. Absent: systolic murmur, diastolic murmur, rubs, gallop, clicks GI/Abdominal exam: Present: soft, normal bowel sounds. Absent: distended, tenderness, guarding, rebound, rigid Extremities exam: Present: full ROM, normal capillary refill, other (Patient has lower extremity edema extending from below the knee to the feet. Edema in the legs is 3+ pitting, edema in the feet is 2+ pitting. There is erythema surrounding both lower legs. There is a ulcer noted to the right forefoot just beneath the great toe. This wound is dry with a central area of what appears to be necrotic tissue.). Absent: normal inspection, tenderness, joint swelling , calf tenderness Neurological exam: Present: alert, CN II-XII intact. Absent: oriented X3 ( Oriented 2) Psychiatric exam: Present: normal mood, flat affect Skin exam: Present: warm, dry, intact, normal color. Absent: rash Course Vital Signs 12/03/17 15:48 Temperature 99.1 F Pulse Rate 56 L Respiratory 18 Rate Blood Pressure 192/79 O2 Sat by Pulse 99 Oximetry Medical Decision Making - Medical Decision Making 87-year-old female patient presented to the emergency department today for evaluation of confusion and lack of appetite for the last month. She is also experiencing lower extremity edema. Physical examination did reveal edema and erythema to the bilateral lower extremities. Edema is 2-3+. There is a small wound to the right forefoot that appears to be possibly a ulcer. Urinalysis was positive for urinary tract infection. BNP is 2330. This seems to be a new finding for the patient so we will admit at this time. Did speak to Sonja DENTON from Dr. Moura's service, she accepts. We will start antibiotics, IV lasix. Family informed of results and plan. - Lab Data Result diagrams: 12/03/17 19:09 12/03/17 19:09 Lab Results 12/03/17 12/03/17 12/03/17 Range/Units 19:09 19:09 19:09 WBC 5.3 (3.8-10.6) k/uL RBC 4.17 (3.80-5.40) m/uL Hgb 12.6 (11.4-16.0) gm/dL Hct 38.9 (34.0-46.0) % MCV 93.4 (80.0-100.0) fL MCH 30.2 (25.0-35.0) pg MCHC 32.4 (31.0-37.0) g/dL RDW 12.6 (11.5-15.5) % Plt Count 190 (150-450) k/uL Neutrophils % 57 % Lymphocytes % 31 % Monocytes % 6 % Eosinophils % 2 % Basophils % 1 % Neutrophils # 3.1 (1.3-7.7) k/uL Lymphocytes # 1.7 (1.0-4.8) k/uL Monocytes # 0.3 (0-1.0) k/uL Eosinophils # 0.1 (0-0.7) k/uL Basophils # 0.0 (0-0.2) k/uL Sodium 142 (137-145) mmol/L Potassium 3.5 (3.5-5.1) mmol/L Chloride 100 (98-107) mmol/L Carbon Dioxide 29 (22-30) mmol/L Anion Gap 13 mmol/L BUN 26 H (7-17) mg/dL Creatinine 1.02 (0.52-1.04) mg/dL Est GFR (MDRD) Af Amer >60 (>60 ml/min/1.73 sqM) Est GFR (MDRD) Non-Af 52 (>60 ml/min/1.73 sqM) Glucose 126 H (74-99) mg/dL Calcium 9.7 (8.4-10.2) mg/dL Total Bilirubin 0.3 (0.2-1.3) mg/dL AST 23 (14-36) U/L ALT 15 (9-52) U/L Alkaline Phosphatase 84 (38-126) U/L NT-Pro-B Natriuret Pep 2330 pg/mL Total Protein 7.1 (6.3-8.2) g/dL Albumin 4.0 (3.5-5.0) g/dL Urine Color Urine Appearance (Clear) Urine pH (5.0-8.0) Ur Specific [place] (1.001-1.035) Urine Protein (Negative) Urine Glucose (UA) (Negative) Urine Ketones (Negative) Urine Blood (Negative) Urine Nitrite (Negative) Urine Bilirubin (Negative) Urine Urobilinogen (<2.0) mg/dL Ur Leukocyte Esterase (Negative) Urine RBC (0-5) /hpf Urine WBC (0-5) /hpf Ur Squamous Epith Cells (0-4) /hpf Urine Bacteria (None) /hpf Hyaline Casts (0-2) /lpf Urine Mucus (None) /hpf 12/03/17 Range/Units 19:09 WBC (3.8-10.6) k/uL RBC (3.80-5.40) m/uL Hgb (11.4-16.0) gm/dL Hct (34.0-46.0) % MCV (80.0-100.0) fL MCH (25.0-35.0) pg MCHC (31.0-37.0) g/dL RDW (11.5-15.5) % Plt Count (150-450) k/uL Neutrophils % % Lymphocytes % % Monocytes % % Eosinophils % % Basophils % % Neutrophils # (1.3-7.7) k/uL Lymphocytes # (1.0-4.8) k/uL Monocytes # (0-1.0) k/uL Eosinophils # (0-0.7) k/uL Basophils # (0-0.2) k/uL Sodium (137-145) mmol/L Potassium (3.5-5.1) mmol/L Chloride (98-107) mmol/L Carbon Dioxide (22-30) mmol/L Anion Gap mmol/L BUN (7-17) mg/dL Creatinine (0.52-1.04) mg/dL Est GFR (MDRD) Af Amer (>60 ml/min/1.73 sqM) Est GFR (MDRD) Non-Af (>60 ml/min/1.73 sqM) Glucose (74-99) mg/dL Calcium (8.4-10.2) mg/dL Total Bilirubin (0.2-1.3) mg/dL AST (14-36) U/L ALT (9-52) U/L Alkaline Phosphatase (38-126) U/L NT-Pro-B Natriuret Pep pg/mL Total Protein (6.3-8.2) g/dL Albumin (3.5-5.0) g/dL Urine Color Yellow Urine Appearance Cloudy H (Clear) Urine pH 5.0 (5.0-8.0) Ur Specific [place] 1.013 (1.001-1.035) Urine Protein Trace H (Negative) Urine Glucose (UA) Negative (Negative) Urine Ketones Negative (Negative) Urine Blood Trace H (Negative) Urine Nitrite Positive H (Negative) Urine Bilirubin Negative (Negative) Urine Urobilinogen <2.0 (<2.0) mg/dL Ur Leukocyte Esterase Moderate H (Negative) Urine RBC 2 (0-5) /hpf Urine WBC 24 H (0-5) /hpf Ur Squamous Epith Cells 3 (0-4) /hpf Urine Bacteria Many H (None) /hpf Hyaline Casts 2 (0-2) /lpf Urine Mucus Occasional H (None) /hpf - EKG Data EKG Comments: EKG obtained at 2003 shows sinus rhythm with frequent premature ventricular complexes and premature atrial complexes. Left axis deviation. Right bundle michelle block. Ventricular rate is 60, P return to full stool 2, QRS duration is 138, QTC 450, QTC 450. Did review EKG from 10/23/2016, changes appear chronic. - Radiology Data Radiology results: report reviewed, image reviewed Two-view x-ray of the chest shows no heart failure nor confluent pneumonic infiltrate. Thoracic aorta is atheromatous. There is no pleural effusion. Bony thorax is intact. Impression by Dr. Torres shows no active cardiopulmonary disease. No change. Disposition Clinical Impression: Urinary tract infection, CHF (congestive heart failure), Lower extremity edema Disposition: ADMITTED IP TO THIS HOSP Condition: Serious Referrals: Scottie Bain DO [Primary Care Provider] - 1-2 days Decision to Admit Reason: Admit from EC Decision Date: 12/03/17 Decision Time: 20:20
[2017-12-03 19:20] LABS: Basophils % (A) 1 %; Eosinophils # (A) 0.1 k/uL (0-0.7); Eosinophils % (A) 2 %; HCT 38.9 % (34.0-46.0); HGB 12.6 gm/dL (11.4-16.0); Lymphocytes # (A) 1.7 k/uL (1.0-4.8); Lymphocytes % (A) 31 %; MCH 30.2 pg (25.0-35.0); MCHC 32.4 g/dL (31.0-37.0); MCV 93.4 fL (80.0-100.0); Mean Platelet Volume 7.3; Monocytes # (A) 0.3 k/uL (0-1.0); Monocytes % (A) 6 %; Neutrophils # (A) 3.1 k/uL (1.3-7.7); Neutrophils % (A) 57 %; Platelet Count 190 k/uL (150-450); RBC 4.17 m/uL (3.80-5.40); RDW 12.6 % (11.5-15.5); WBC 5.3 k/uL (3.8-10.6)
[2017-12-03 19:21] LABS: Appearance,Urine Cloudy (Clear); Bacteria,Urine Many /hpf; Bilirubin,Urine Negative (Negative); Blood,Urine Trace (Negative); Color,Urine Yellow; Glucose,Urine (UA) Negative (Negative); Hyaline Casts,Urine 2 /lpf (0-2); Ketones,Urine Negative (Negative); Leukocyte Esterase,Urine Moderate (Negative); Mucus,Urine Occasional /hpf; Nitrite,Urine Positive (Negative); Protein,Urine Trace (Negative); RBC,Urine 2 /hpf (0-5); Specific Gravity,Urine 1.013 (1.001-1.035); Squamous Epithelial Cell,Urine 3 /hpf (0-4); Urobilinogen,Urine <2.0 mg/dL (<2.0); WBC,Urine 24 /hpf (0-5)
[2017-12-03 19:30] LABS: ALT 15 U/L (9-52); AST 23 U/L (14-36); Alkaline Phosphatase 84 U/L (38-126); Anion Gap 13 mmol/L; Blood Urea Nitrogen 26 mg/dL (7-17); Calcium 9.7 mg/dL (8.4-10.2); Carbon Dioxide 29 mmol/L (22-30); Chloride 100 mmol/L (98-107); Glucose 126 mg/dL (74-99); Potassium 3.5 mmol/L (3.5-5.1); Sodium 142 mmol/L (137-145); Total Bilirubin 0.3 mg/dL (0.2-1.3); Total Protein 7.1 g/dL (6.3-8.2)
--- NOTE | 2017-12-03 19:47 | XR ---
EXAMINATION TYPE: XR chest 2V DATE OF EXAM: 12/03/2017 COMPARISON: 10/22/2016 HISTORY: Fever TECHNIQUE: Frontal and lateral views of the chest are obtained. FINDINGS: There is no heart failure nor confluent pneumonic infiltrate. Thoracic aorta is atheromato us. There is no pleural effusion. Bony thorax is intact. IMPRESSION: No active cardiopulmonary disease. No change.
[2017-12-03] MEDS ORDERED: NALOXONE 0.4 MG/ML 1 ML VIAL IV PRN (20:16)
[2017-12-03] MEDS ORDERED: FUROSEMIDE 10 MG/ML 4 ML VIAL IV STA (20:18)
[2017-12-03] MEDS ORDERED: cefTRIAXone IN SWFI 1,000 MG/10 ML SYRINGE IVP STA (20:22)
[2017-12-03] MEDS ORDERED: ACETAMINOPHEN TAB 325 MG TAB PO STA (20:33)
[2017-12-03] MEDS ORDERED: ACETAMINOPHEN TAB 325 MG TAB PO PRN (20:33)
[2017-12-03] MEDS ORDERED: ENALAPRILAT 1.25 MG/ML 1 ML VIAL IVP PRN (21:26)
[2017-12-03] MEDS ORDERED: ENALAPRILAT 1.25 MG/ML 1 ML VIAL IVP STA (21:26)
[2017-12-03] MEDS ORDERED: cloNIDine HCL 0.1 MG TAB PO STA (22:32)
[2017-12-04] MEDS: FERROUS SULFATE 325 MG TAB PO SCH (07:32)
[2017-12-04] MEDS: metFORMIN 500 MG TAB PO SCH ×2 (07:32→17:35)
[2017-12-04 07:44] LABS: Glucose,Whole Blood 134 mg/dL (75-99)
[2017-12-04 08:38] LABS: Basophils % (A) 1 %; Eosinophils # (A) 0.1 k/uL (0-0.7); Eosinophils % (A) 3 %; HCT 38.2 % (34.0-46.0); HGB 12.1 gm/dL (11.4-16.0); Lymphocytes # (A) 1.5 k/uL (1.0-4.8); Lymphocytes % (A) 31 %; MCHC 31.6 g/dL (31.0-37.0); Mean Platelet Volume 7.4; Monocytes # (A) 0.4 k/uL (0-1.0); Monocytes % (A) 7 %; Neutrophils # (A) 2.6 k/uL (1.3-7.7); Neutrophils % (A) 56 %; Platelet Count 179 k/uL (150-450); RBC 4.03 m/uL (3.80-5.40); RDW 12.7 % (11.5-15.5); WBC 4.7 k/uL (3.8-10.6)
[2017-12-04 08:50] LABS: Calcium 9.8 mg/dL (8.4-10.2); Potassium 3.8 mmol/L (3.5-5.1)
[2017-12-04] MEDS ORDERED: FUROSEMIDE 10 MG/ML 2 ML VIAL IV SCH (09:00)
[2017-12-04] MEDS ORDERED: ENOXAPARIN 40 MG/0.4 ML SYRINGE SQ SCH (09:00)
[2017-12-04] MEDS ORDERED: cloNIDine HCL 0.1 MG TAB PO SCH (09:00)
[2017-12-04] MEDS ORDERED: LORATADINE 10 MG TAB PO SCH (09:00)
[2017-12-04] MEDS: cefTRIAXone IN SWFI 1,000 MG/10 ML SYRINGE IVP SCH (09:16)
[2017-12-04 12:08] LABS: Glucose,Whole Blood 141 mg/dL (75-99)
[2017-12-04] MEDS ORDERED: LACTATED RINGERS 1,000 ML IV SCH (15:15)
--- NOTE | 2017-12-04 16:28 | HP ---
HISTORY AND PHYSICAL DATE OF ADMISSION: 12/03/17. PRESENT COMPLAINT: Leg redness. HISTORY OF PRESENTING COMPLAINT: This is a pleasant 87-year-old patient of Dr. Bain who lives with her daughter. Chronic stable medical conditions include diabetes, GERD, hypertension, hyperlipidemia, osteoarthritis, gait dysfunction, cognitive impairment, chronic lower extremity varicosities, aortic stenosis, tricuspid regurgitation. The patient also wears a cervical collar. The patient is not the best historian. She is not sure why she is here, but the patient's lower extremity is getting more and more swollen. There is some redness and puffiness. Skin is becoming tight. The patient's appetite is okay. Does use a cane to get about. Denies any obvious fevers. REVIEW OF SYSTEMS: CONSTITUTIONAL: Tired. HEENT: Decreased hearing. RESPIRATORY: None. CARDIOVASCULAR: No chest pain. GASTROINTESTINAL: None. GENITOURINARY: None. MUSCULOSKELETAL: Arthritic pain in joints. DERMATOLOGICAL: Redness of both lower extremities. PSYCHIATRY: Forgetful. NEUROLOGICAL: None. PAST HISTORY: Diabetes, GERD, hypertension, hyperlipidemia, osteoarthritis, rosacea, gait dysfunction, cognitive impairment, chronic lower extremity varicosities, severe aortic stenosis, severe tricuspid regurgitation. Cervical spine arthralgia, wears a collar. PAST SURGICAL HISTORY: Hysterectomy, bowel surgery, bilateral cataract lens implant, D and C. PAST PSYCHOLOGICAL HISTORY: Anxiety, depression slight. 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 Does not smoke. Denies alcohol. FAMILY HISTORY: Myocardial infarction. HOME MEDICATIONS: 1. Glucophage 1000 mg b.i.d. 2. Claritin 10 mg p.o. daily. 3. Iron 325 p.o. daily. 4. Lasix 20 mg p.o. daily. ALLERGIES: ASPIRIN. PHYSICAL EXAMINATION: Vital signs on presentation: Temperature 99.1, pulse 56, respiratory 18, blood pressure 192/79, pulse ox 99% on room. Average built sitting up, tired appearing. EYES: Pupils equal. Conjunctivae normal. HEENT: Oral cavity normal. NECK: JVD not raised. Mass not palpable. RESPIRATORY: Effort normal. Lungs are clear. CARDIOVASCULAR: 1st and 2nd sounds normal. Edema present. ABDOMEN: Soft, nontender. Liver and spleen not palpable. LYMPHATIC: No lymph node palpable in neck or axillae. PSYCHIATRY: Patient thinks she is at [facility], 2017. NEUROLOGICAL: Pupils equal. Cranial nerves grossly intact. Power and sensation grossly intact. MUSCULOSKELETAL: Evidence of severe osteoarthritis especially in the hands and knees. Lower extremity, there is prominence of varicose veins and swelling below the knee down to the ankles. Skin is tight, edematous, red and slightly tender. INVESTIGATIONS: White count 4.7, hemoglobin 12.1, potassium 3.8, BUN 26, creatinine 1.02, repeat was 1.15. UA positive for nitrite, leuko esterase. ASSESSMENT: 1. Bilateral lower extremity cellulitis in a patient with bilateral lower extremity varicose veins. 2. Chronic edema. 3. No clinical evidence of congestive heart failure. 4. The patient did get IV Lasix from the ER, but this will be discontinued. In fact patient gently will be hydrated to correct the volume. 5. Acute urinary tract infection. Patient is on IV ceftriaxone. 6. Diabetes mellitus type 2 on oral hypoglycemic. 7. Gastroesophageal reflux disease. 8. Essential hypertension with urgency. 9. Hyperlipidemia. 10.Primary osteoarthritis of multiple joints, bilateral. 11.Gait dysfunction, uses a cane at home. 12.Chronic cognitive impairment. 13.Chronic lower extremity varicosities. 14.Severe aortic stenosis, nonrheumatic. 15.Severe tricuspid regurgitation, nonrheumatic. 16.Chronic cervical spine arthralgia. Patient uses a cervical collar. PLAN: At this point will DC the IV Lasix. Will gently hydrate the patient. For blood pressure control will start the patient on lisinopril hydrochlorothiazide 20/12.5 one tablet twice a day. We will also stop patient's Claritin. The patient is already on ceftriaxone both with a UTI and lower extremity cellulitis. The patient also will be given Silvadene cream to both lower extremity with Kerlix and Jacky wrap. MMODL / IJN: [id number] /
[2017-12-04] MEDS: LISINOPRIL-HCTZ 20-12.5 MG 1 EACH TAB PO SCH ×2 (16:43→17:35)
[2017-12-04 17:38] LABS: Glucose,Whole Blood 120 mg/dL (75-99)
[2017-12-04 21:03] LABS: Glucose,Whole Blood 128 mg/dL (75-99)
[2017-12-05 07:18] LABS: Glucose,Whole Blood 142 mg/dL (75-99)
[2017-12-05] MEDS: cefTRIAXone IN SWFI 1,000 MG/10 ML SYRINGE IVP SCH (08:16)
[2017-12-05] MEDS: metFORMIN 500 MG TAB PO SCH ×2 (08:17→17:21)
[2017-12-05] MEDS: FERROUS SULFATE 325 MG TAB PO SCH (08:17)
[2017-12-05] MEDS: ENOXAPARIN 30 MG/0.3 ML SYRINGE SQ SCH (08:17)
[2017-12-05] MEDS: LISINOPRIL-HCTZ 20-12.5 MG 1 EACH TAB PO SCH ×2 (08:17→22:03)
[2017-12-05 12:15] LABS: Glucose,Whole Blood 106 mg/dL (75-99)
[2017-12-05] MEDS ORDERED: cloNIDine HCL 0.1 MG TAB PO PRN (15:50)
[2017-12-05] MEDS ORDERED: hydrALAZINE HCL 20 MG/ML 1 ML VIAL IVP PRN (15:50)
--- NOTE | 2017-12-05 16:52 | PN ---
PROGRESS NOTE DATE OF SERVICE: 12/05/2017 I am covering for Dr. Moura. This 87-year-old woman with a past medical history of multiple medical problems was admitted with confusion, change in mental status, bilateral leg swelling and as well as edema and cellulitis also. The patient also had uncontrolled elevated high blood pressure also which is not responding to Vasotec p.r.n. PAST MEDICAL: Reviewed. REVIEW OF SYSTEMS: Cardiovascular: No angina or palpitations. Respiratory: As mentioned earlier. : As mentioned earlier. central nervous system: No numbness or weakness. CURRENT MEDICATIONS: Reviewed and include: 1. Tylenol 650 q.6h p.r.n. 2. Rocephin. 3. Vasotec. 4. Lovenox. 6. Zestoretic. 7. Glucovance. 8. Narcan. 9. Silvadene. PHYSICAL EXAM: Patient is alert and oriented x3. The pulse is 54, blood pressure 119/79, went up to 202/79, respiration 18, temperature 97.4, pulse ox 98% on room air. HEENT is conjunctivae normal. Oral mucosa moist. Neck is no jugular venous distention. No thyroid enlargement. No carotid bruit. Cardiovascular system: S1, S2 muffled. Ejection systolic murmur present. Respiratory: Breath sounds diminished in the bases. A few scattered rhonchi. No crackles. ABDOMEN: Soft, nontender. No mass. Legs bilateral leg swelling and cellulitis and edema present. Pulses diminished bilaterally. Nervous system: Higher functions as mentioned earlier. Moves all four limbs. No focal or motor deficits Lymphatics: No lymph nodes palpable in the neck, axillae or groin. Skin: No ulcer, rash or bleeding. LAB STUDIES: CBC within normal limits. Otherwise, creatinine is 1.15. LFTs are normal. Hemoglobin is 7, UA noted. Possibly UTI. ASSESSMENT: 1. Confusion, possible acute metabolic encephalopathy multifactorial. 2. Urinary tract infection. 3. Hypertensive urgency. 4. Bilateral leg edema. 5. Chronic venous stasis edema. 6. Diabetes type 2. 7. Gastroesophageal reflux disease. 8. Hypertension. 9. Hyperlipidemia. 10.History of gait dysfunction. 11.Chronic lower extremity varicosities. 12.Aortic stenosis, severe nonrheumatic and severe tricuspid regurgitation nonrheumatic. 13.Degenerative joint disease. 14.NO CODE, NO CPR, no VENT. RECOMMENDATIONS/DISCUSSION: Recommend to continue current management and symptomatic treatment. Otherwise at this time I would recommend closely monitor and continue antibiotics. I recommend p.r.n. medication for high blood pressure. Medications were adjusted. The urine culture showed gram-negative bacilli. The prognosis guarded because of multiple complex medical issues. Further recommendations to follow. I would also recommend a CT scan of the brain also. See orders for further details. MMODL / IJN: [id number] / [facility] HOSPITALAlyssa
[2017-12-05 17:13] LABS: Glucose,Whole Blood 120 mg/dL (75-99)
--- NOTE | 2017-12-05 17:14 | CT ---
EXAMINATION TYPE: CT brain wo con DATE OF EXAM: 12/05/2017 COMPARISON: 01/31/2015 HISTORY: 87-year-old female confusion, CVA, altered mental status TECHNIQUE: Examination was done in axial plane without intravenous contrast. Coronal and sagittal r econstructions performed. CT DLP: 972.6 kmGycm Automated exposure control for dose reduction was used. FINDINGS: As compared to 01/31/2015, there is new cortical and subcortical hypodensity in the bifrontal regions. Focal rounded 2.0 cm area of intermediate density in the left frontal region. Mild to moderate confluent changes of chronic small vessel ischemic disease similar. No midline shift or herniation. No effacement of basal subarachnoid cisterns. No extra-axial fluid collection seen. Mild ventricular prominence secondary to generalized atrophy is similar. Leftward nasal septal deviation. Paranasal sinuses and mastoid air cells are well pneumatized. Orbits and globes are intact. IMPRESSION: 1. Extensive new cortical and subcortical hypodensity in the bifrontal regions as compared to 02/01/20 15. Etiology is uncertain. Possible posttraumatic encephalomalacia or subacute to chronic bifrontal i nfarcts. 2. However, given suggestion of a rounded 2 cm soft tissue area in the left frontal region, the possi bility of vasogenic edema from underlying mass is not excluded. Alternative possibility given the deg ree of density would be a subacute intraparenchymal hematoma especially if there was history of traum a. 3. Clinical correlation will be required. Contrast-enhanced MRI can further evaluate as indicated. No midline shift or herniation.
[2017-12-05] MEDS: INSULIN ASPART 100 UNIT/ML 1 ML 10 ML VIAL SQ SCH ×2 (17:19→22:03)
[2017-12-05] MEDS: hydrALAZINE HCL 50 MG TAB PO SCH (17:22)
[2017-12-05 20:16] LABS: Glucose,Whole Blood 192 mg/dL (75-99)
[2017-12-05] MEDS ORDERED: risperiDONE 0.25 MG TAB PO STA (21:55)
[2017-12-06] MEDS: hydrALAZINE HCL 50 MG TAB PO SCH ×4 (03:19→22:53)
[2017-12-06 07:15] LABS: Glucose,Whole Blood 151 mg/dL (75-99)
[2017-12-06 08:02] LABS: Basophils % (A) 1 %; Eosinophils # (A) 0.1 k/uL (0-0.7); Eosinophils % (A) 3 %; HCT 36.7 % (34.0-46.0); HGB 11.9 gm/dL (11.4-16.0); Lymphocytes # (A) 0.9 k/uL (1.0-4.8); Lymphocytes % (A) 20 %; MCH 30.2 pg (25.0-35.0); MCHC 32.4 g/dL (31.0-37.0); Mean Platelet Volume 7.2; Monocytes # (A) 0.3 k/uL (0-1.0); Monocytes % (A) 7 %; Neutrophils # (A) 3.2 k/uL (1.3-7.7); Neutrophils % (A) 68 %; Platelet Count 180 k/uL (150-450); RBC 3.95 m/uL (3.80-5.40); RDW 12.7 % (11.5-15.5); WBC 4.7 k/uL (3.8-10.6)
[2017-12-06 08:41] LABS: Anion Gap 9 mmol/L; Blood Urea Nitrogen 21 mg/dL (7-17); Calcium 9.6 mg/dL (8.4-10.2); Carbon Dioxide 30 mmol/L (22-30); Chloride 98 mmol/L (98-107); Glucose 153 mg/dL (74-99); Potassium 3.7 mmol/L (3.5-5.1); Sodium 137 mmol/L (137-145)
[2017-12-06] MEDS: INSULIN ASPART 100 UNIT/ML 1 ML 10 ML VIAL SQ SCH ×4 (09:36→22:53)
[2017-12-06] MEDS: metFORMIN 500 MG TAB PO SCH ×2 (09:36→17:20)
[2017-12-06] MEDS: cefTRIAXone IN SWFI 1,000 MG/10 ML SYRINGE IVP SCH (09:36)
[2017-12-06] MEDS: LISINOPRIL-HCTZ 20-12.5 MG 1 EACH TAB PO SCH ×2 (09:37→22:53)
[2017-12-06] MEDS: ENOXAPARIN 30 MG/0.3 ML SYRINGE SQ SCH (09:37)
[2017-12-06] MEDS: FERROUS SULFATE 325 MG TAB PO SCH (09:37)
[2017-12-06 12:29] LABS: Glucose,Whole Blood 266 mg/dL (75-99)
[2017-12-06] MEDS: FOLIC ACID 1 MG TAB PO SCH (12:39)
[2017-12-06] MEDS: MULTIVITAMINS, THERA 1 EACH TAB PO SCH (12:39)
[2017-12-06] MEDS: THIAMINE 100 MG TAB PO SCH (12:39)
[2017-12-06] MEDS ORDERED: Potassium Replacement Protocol 1 EACH MISC MISCELLANE PRN (14:07)
[2017-12-06] MEDS ORDERED: POTASSIUM CHLORIDE 10 MEQ in SODIUM CHLORIDE 0.9% 100 ML IVPB SCH (15:00)
[2017-12-06] MEDS: SODIUM CHLORIDE 0.9% 1,000 ML IV SCH (17:21)
[2017-12-06 17:23] LABS: Glucose,Whole Blood 119 mg/dL (75-99)
[2017-12-06] MEDS ORDERED: LORazepam 2 MG/ML INJ IV PRN (21:03)
[2017-12-06] MEDS ORDERED: ONDANSETRON 4 MG/2 ML VIAL IVP PRN (21:03)
--- NOTE | 2017-12-06 22:09 | PN ---
PROGRESS NOTE DATE OF SERVICE: 12/06/2017. INTERVAL HISTORY: This 87-year-old woman who was admitted with confusion, possible acute metabolic encephalopathy multifactorial also had UTI. The patient is more ambulating yesterday but today the patient appears to be slightly tired. No chest pain. No palpitations. No fever. Confusion persists. CT scan of the brain was done yesterday which showed extensive subcortical hypodensities with clinic edema is also considered. MRIs indicated per the report. PAST MEDICAL HISTORY: Reviewed. REVIEW OF SYMPTOMS: Could not be taken. CURRENT MEDICATIONS: 1. Tylenol 650 q.6h p.r.n. 2. Rocephin 1 g daily. 3. Catapres 0.1 mg q.4h p.r.n. 4. 1.2 q.6h. 5. Lovenox 30 mg daily. 6. Folic acid. 7. Zestoretic. 8. Apresoline. 9. NovoLog. 10.Multivitamins. 11.Protonix. 12.Silvadene. PHYSICAL EXAM: Patient is alert, oriented x2. Pulse 62, blood pressure 197/77, respiration 18, temperature 97.4, pulse ox 98% on room air. HEENT: Conjunctivae normal. Oral mucosa moist. Neck is no jugular venous distention. No carotid bruit. No lymph node enlargement. Cardiovascular S1, S2, no S3, no S4. RESPIRATORY: Breath sounds diminished in the bases, a few scattered rhonchi and crackles. ABDOMEN: Soft, nontender. No mass palpable. Legs no edema and no swelling. NERVOUS SYSTEM: Higher functions as mentioned earlier. Otherwise moves all 4 limbs. No focal deficits. Lymphatics: No lymph nodes palpable in the neck, axillae or groin. Skin no ulcers, rashes or bleeding. LABS: CBC within normal limits. Glucose 153. ASSESSMENT: 1. Confusion, possible acute metabolic encephalopathy, mild, rule out acute strokes or mass or mass occupying lesion. 2. Urinary tract infection. 3. Hypertensive urgency. 4. Bilateral leg edema. 5. Chronic venous status edema. 6. Diabetes type 2. 7. Gastroesophageal reflux disease. 8. Hypertension. 9. Hyperlipidemia. 10.History of gait dysfunction. 11.History of chronic lower extremity varicosities. 12.Aortic stenosis, severe nonrheumatic with severe tricuspid regurgitation nonrheumatic. 13.Degenerative joint disease. 14.NO CODE, NO CPR, NO VENT. RECOMMENDATIONS AND DISCUSSION: Recommend to continue current medications, management and symptomatic treatment. Otherwise at this time I recommend a stat MRI and also a neurology consultation also. Guarded prognosis because of multiple complex medical issues. Further recommendations to follow. See orders for further details. MMODL / IJN: [id number] / MTDD
[2017-12-06 22:44] LABS: Glucose,Whole Blood 144 mg/dL (75-99)
[2017-12-06] MEDS: PANTOPRAZOLE 40 MG/10 ML VIAL IVP SCH (22:53)
[2017-12-07] MEDS: SODIUM CHLORIDE 0.9% 1,000 ML IV SCH (05:35)
[2017-12-07 06:56] LABS: Glucose,Whole Blood 123 mg/dL (75-99)
[2017-12-07] MEDS: INSULIN ASPART 100 UNIT/ML 1 ML 10 ML VIAL SQ SCH ×4 (09:10→22:39)
[2017-12-07] MEDS: metFORMIN 500 MG TAB PO SCH ×2 (09:26→16:49)
[2017-12-07] MEDS: cefTRIAXone IN SWFI 1,000 MG/10 ML SYRINGE IVP SCH (09:26)
[2017-12-07] MEDS: hydrALAZINE HCL 50 MG TAB PO SCH ×3 (09:27→22:39)
[2017-12-07] MEDS: FERROUS SULFATE 325 MG TAB PO SCH (09:27)
[2017-12-07] MEDS: LISINOPRIL-HCTZ 20-12.5 MG 1 EACH TAB PO SCH ×2 (09:27→22:39)
[2017-12-07] MEDS: PANTOPRAZOLE 40 MG/10 ML VIAL IVP SCH (09:27)
[2017-12-07] MEDS: ENOXAPARIN 30 MG/0.3 ML SYRINGE SQ SCH (09:27)
[2017-12-07 11:32] LABS: Glucose,Whole Blood 143 mg/dL (75-99)
[2017-12-07] MEDS: FOLIC ACID 1 MG TAB PO SCH (13:49)
[2017-12-07] MEDS: MULTIVITAMINS, THERA 1 EACH TAB PO SCH (13:49)
[2017-12-07] MEDS: THIAMINE 100 MG TAB PO SCH (13:50)
--- NOTE | 2017-12-07 16:50 | PN ---
PROGRESS NOTE DATE OF SERVICE: 12/07/2017. INTERVAL HISTORY: This 87-year-old woman was admitted with confusion with possible encephalopathy also suspected to have a stroke . MRI could not be done. Patient is combative and restless at this time. Ativan is being planned at this time. Neurology evaluation in progress. The patient definitely has taken a turn for the worse compared to the day of admission. The patient is being closely monitored at this time along with the Neurology. Empiric antibiotics initiated. PAST MEDICAL HISTORY: Reviewed. REVIEW OF SYSTEMS: Could not be taken. CURRENT MEDICATIONS: Reviewed and include: 1. Tylenol 650 q.6 p.r.n. 2. Rocephin 1 g daily. 3. Catapres 0.1 q.4h p.r.n. 5. Lovenox 30 mg subcu daily. 6. Iron sulfate 320 mg daily. 7. Folic acid 1 mg p.o. daily. 8. Lisinopril with hydrochlorothiazide 1 tab p.o. b.i.d. 9. Apresoline 10 mg IV q.4h p.r.n. 11.Ativan 0.5 q.6h p.r.n. 12.Glucophage 1000 mg p.o. b.i.d. 13.Multivitamins one p.o. daily. 14.Narcan 0.2 p.r.n. 15.Zofran. 16.Protonix. 17.Silvadene cream. 18.Vitamin B1. PHYSICAL EXAM: Patient is alert, oriented x3. Pulse 91, blood pressure 159/74, respiration 18, temperature 98.1, pulse ox 97% on room air. HEENT: Conjunctivae normal. NECK: No jugular venous distention. Cardiovascular: S1, S2 muffled. Respiratory: Breath sounds diminished in the bases. A few scattered rhonchi. No crackles. ABDOMEN: Soft, nontender. No mass palpable. LEGS: Minimal bilateral leg edema. Nervous system: Higher functions as mentioned earlier. Diffusely weak. Lymphatics: No lymph nodes palpable in the neck, axillae or groin. The patient is unable to cooperate with full neurological exam. LABS: At this time Accu-Cheks 144, 121 and 143. CBC within normal limits and other he labs are normal. The patient refused labs today. ASSESSMENT: 1. Confusion, possible acute metabolic encephalopathy, rule out acute stroke or mass occupying lesions. 2. Urinary tract infection present on admission. 3. Hypertensive urgency. 4. Bilateral leg swelling. 5. Chronic venous stasis edema. 6. Diabetes type 2. 7. Gastroesophageal reflux disease. 8. Hyperlipidemia. 9. History of gait dysfunction. 10.History of chronic lower extremity varicosities. 11.Aortic stenosis, severe nonrheumatic with severe tricuspid regurgitation nonrheumatic. 12.History of degenerative joint disease. 13.History of NO CODE, NO CPR, NO VENT. RECOMMENDATIONS AND DISCUSSION: I recommend to continue current medications, continue with monitoring and symptomatic treatment. Otherwise I would recommend MRI, Ativan for sedation. Neurology consultation. Neurology evaluation. Prognosis guarded because of multiple complex medical issues. Further recommendations to follow. MMODL / IJN: [id number] / MTDD
[2017-12-07 17:26] LABS: Glucose,Whole Blood 144 mg/dL (75-99)
[2017-12-07] MEDS: PANTOPRAZOLE 40 MG TABLET PO SCH (18:07)
--- NOTE | 2017-12-07 19:50 | MR ---
EXAMINATION TYPE: MR brain wo/w con DATE OF EXAM: 12/07/2017 COMPARISON: 09/05/2011 HISTORY: Weakness and stroke TECHNIQUE: Multiplanar, multisequence images of the brain and brainstem is performed without and with IV contras t, utilizing 7.5 mL intravenous Gadavist . FINDINGS: There is a 3 cm somewhat rounded area of abnormal increased signal on the T2 and FLAIR images in the holliday-white matter of the right frontal lobe. There is a similar appearing 3 cm lesion with more mixed signal in the left frontal lobe. There is no effacement of the ventricles. There is white matter mil d increased signal on the FLAIR images around the lateral ventricles and more in the frontal lobes. T here is no midline shift. There is mixed signal in the frontal lobe lesions bilaterally. The contrast images show no pathologic enhancement. The brainstem is intact. There is some thinning o f the corpus callosum. The sella turcica appears normal. IMPRESSION: Bilateral frontal lobe lesions involving holliday and white matter are nonenhancing and have mixed signal consistent with hemorrhagic infarcts. No mass effect. I do not see an new abnormality co mpared to the CT scan of 12/05/2017. The infarcts appear new compared to the old MR scan of 09/05/2011 . Moderate patchy periventricular white matter increased signal consistent with chronic small vessel is chemia.
--- NOTE | 2017-12-07 21:04 | US ---
EXAMINATION TYPE: US venous doppler duplex LE DATE OF EXAM: 12/07/2017 6:58 PM COMPARISON: NONE CLINICAL HISTORY: dvt. edema exam limitations due to patient sedated and unable to move legs. Only ab le to do popliteal areas in sag position. SIDE PERFORMED: Bilateral TECHNIQUE: The lower extremity deep venous system is examined utilizing real time linear array sonog mekhi with graded compression, doppler sonography and color-flow sonography. VESSELS IMAGED: External Iliac Vein (EIV) Common Femoral Vein Deep Femoral Vein Greater Saphenous Vein * Femoral Vein Popliteal Vein Small Saphenous Vein * Proximal Calf Veins (* superficial vessels) Right Leg: Negative for DVT Left Leg: Negative for DVT No evidence of DVT bilateral legs. IMPRESSION: Normal exam. No evidence of deep venous thrombosis in both legs.
[2017-12-07 21:14] LABS: Glucose,Whole Blood 149 mg/dL (75-99)
[2017-12-08 07:11] LABS: Glucose,Whole Blood 103 mg/dL (75-99)
[2017-12-08 08:01] LABS: Basophils % (A) 1 %; Eosinophils # (A) 0.1 k/uL (0-0.7); Eosinophils % (A) 1 %; HCT 35.4 % (34.0-46.0); HGB 11.3 gm/dL (11.4-16.0); Lymphocytes # (A) 1.1 k/uL (1.0-4.8); Lymphocytes % (A) 18 %; MCH 29.8 pg (25.0-35.0); MCHC 31.9 g/dL (31.0-37.0); MCV 93.4 fL (80.0-100.0); Mean Platelet Volume 7.2; Monocytes # (A) 0.4 k/uL (0-1.0); Monocytes % (A) 7 %; Neutrophils # (A) 4.4 k/uL (1.3-7.7); Neutrophils % (A) 73 %; Platelet Count 175 k/uL (150-450); RBC 3.79 m/uL (3.80-5.40); RDW 12.6 % (11.5-15.5); WBC 6.1 k/uL (3.8-10.6)
[2017-12-08 08:07] LABS: Anion Gap 10 mmol/L; Blood Urea Nitrogen 20 mg/dL (7-17); Carbon Dioxide 27 mmol/L (22-30); Chloride 99 mmol/L (98-107); Glucose 112 mg/dL (74-99); Potassium 3.6 mmol/L (3.5-5.1); Sodium 136 mmol/L (137-145)
[2017-12-08] MEDS: LISINOPRIL-HCTZ 20-12.5 MG 1 EACH TAB PO SCH (08:58)
[2017-12-08] MEDS: metFORMIN 500 MG TAB PO SCH (08:58)
[2017-12-08] MEDS: hydrALAZINE HCL 50 MG TAB PO SCH (08:59)
[2017-12-08] MEDS: PANTOPRAZOLE 40 MG TABLET PO SCH (08:59)
[2017-12-08] MEDS: FERROUS SULFATE 325 MG TAB PO SCH (08:59)
[2017-12-08] MEDS ORDERED: ENOXAPARIN 40 MG/0.4 ML SYRINGE SQ SCH (09:00)
[2017-12-08] MEDS: INSULIN ASPART 100 UNIT/ML 1 ML 10 ML VIAL SQ SCH ×2 (09:05→12:23)
--- NOTE | 2017-12-08 09:42 | CONS ---
CONSULTATION DATE OF CONSULTATION: 12/07/2017 CHIEF COMPLAINT: Altered mental status. HISTORY OF PRESENT ILLNESS: Mrs. Gudino is an 87-year-old female, who is being evaluated today on 12/07/2017 by the neurology service per the request of Dr. Moura for altered mental status. The patient was brought into [facility] Emergency Room by her family with the complaints that she has been having increasing confusion over the past few months. More recently, she started having hallucinations, which prompted them to bring her to the hospital. A CT scan of the brain was done, which showed multiple areas of hypoattenuation involving the bilateral frontal lobes and these were felt to be new when compared to her 01/31/2015 CT scan of the brain. Her CBC was normal. Her basic metabolic profile showed slightly elevated BUN at 21 and hyperglycemia at 153. Her urinalysis showed 24 WBCs with moderate leukocyte esterase and positive nitrites. I did review her images from the CT scan of the brain, and there is evidence of vasogenic edema in the left frontal lobe concerning for neoplastic process. An MRI of the brain was just completed and the patient is quite sedated at the time of my evaluation. As she was sedated for her MRI. Her daughter is at bedside at the time of my evaluation and she states that they have been seeking medical attention for her increasing confusion and she was diagnosed with recurrent urinary tract infection which she has been treated for on multiple occasions over the past few months. The daughter denies knowing of any significant head injuries that occurred recently. PAST MEDICAL HISTORY: Diabetes, gastroesophageal reflux disease, hypertension, dyslipidemia, arthritis, rosacea, aortic stenosis, tricuspid valve regurgitation, chronic neck pain, anxiety disorder, depression, history of hysterectomy, bowel surgery, cataract surgery, D and C. SOCIAL HISTORY: There is no history of any tobacco or alcohol or drug use. FAMILY HISTORY: Positive for heart disease. HOME MEDICATIONS: Reviewed in the chart. ALLERGIES: ASPIRIN. REVIEW OF SYSTEMS: Unable to obtain, as the patient is quite sedated after her MRI. PHYSICAL EXAM: Vital signs show a temperature of 98.0, pulse 71, respiration 18, blood pressure 156/72. GENERAL APPEARANCE: The patient is a well-developed, elderly female, who appears to be quite drowsy. HEENT: Normocephalic, atraumatic, no obvious facial asymmetry is seen. Neck is supple with no masses felt. CARDIOVASCULAR: Regular rate and rhythm. ABDOMEN: Nontender, nondistended. Extremities showed trace edema with no clubbing seen. NEUROLOGICAL EXAM: The patient is quite sedated. She does open her eyes when her name is called but drifts right back to sleep. A complete neurological examination could not be done. Plantar reflex showed silent toes bilaterally. No ankle clonus is seen. No seizure-like activity is noticed. No obvious facial asymmetry is seen. IMPRESSION: 1. Altered mental status. 2. Multifactorial encephalopathy. 3. Abnormal CT scan of the brain with multiple hypoattenuation seen in the frontal lobes bilaterally. 4. Recurrent urinary tract infections. RECOMMENDATION: The patient has been having progressive confusion and more recent hallucinations as mentioned above. Her symptoms initially started a few months ago. Her CT scan of the brain was reviewed and there is concerns for neoplastic process given the vasogenic edema present in the left frontal lobe. An MRI of the brain was just completed and the results are pending. I will order an EEG. Continue neuro checks. Prognosis is guarded. I will continue to follow with you. Further recommendations to follow. Thank you for allowing me to participate in the care of your patient. If you have any questions, please feel free to contact me. MMODL / IJN: [id number] /
[2017-12-08] MEDS: SODIUM CHLORIDE 0.9% 1,000 ML IV SCH ×2 (09:58→10:02)
[2017-12-08] MEDS: cefTRIAXone IN SWFI 1,000 MG/10 ML SYRINGE IVP SCH (10:02)
[2017-12-08 11:07] LABS: Partial Thromboplastin Time 28.4 sec (22.0-30.0); Prothrombin Time 10.1 sec (9.0-12.0)
[2017-12-08 11:58] LABS: Glucose,Whole Blood 98 mg/dL (75-99)
[2017-12-08] MEDS: FOLIC ACID 1 MG TAB PO SCH (12:19)
[2017-12-08] MEDS: MULTIVITAMINS, THERA 1 EACH TAB PO SCH (12:20)
[2017-12-08] MEDS: THIAMINE 100 MG TAB PO SCH (12:20)
--- NOTE | 2017-12-08 14:40 | P.PN ---
Subjective Progress Note Date: 12/08/17 Principal diagnosis: Patient is a pleasant 87-year-old female who is being followed by the neurology service for altered mental status. Patient was brought to [facility] with complaints of increasing confusion with the past few months. Patient recently started having hallucinations and she was brought to the ER. Computed tomography scan of the brain was done which showed multiple areas of hypoattenuation involving bilateral frontal lobes. These changes are felt to be new as compared to her computed tomography scan of 01/31/2015. After reviewing the images, there is evidence of vasogenic edema in the left frontal lobe concerning for neoplastic process. MRI of the brain was done which showed bilateral frontal lobe lesions involving holliday and white matter and are nonenhancing. Lesions have mixed signal consistent with hemorrhagic infarcts. The infarcts appear new as compared to the old MR scan of 2010. MRI also shows patchy periventricular white matter changes and changes consistent with chronic small vessel ischemia. At the time of my evaluation, patient's resting comfortably in bed and appears to be in no acute distress. Objective - Vital Signs Vital signs: Vital Signs Temp 98.4 F 12/08/17 07:46 Pulse 73 12/08/17 13:08 Resp 16 12/08/17 13:08 BP 171/67 12/08/17 07:46 Pulse Ox 96 12/08/17 07:46 Intake & Output 12/07/17 12/08/17 12/08/17 18:59 06:59 18:59 Intake Total 0 1400 100 Balance 0 1400 100 Weight 74.1 kg Intake: Intake, IV Titration 1200 Amount Sodium Chloride 0.9% 1, 1200 000 ml @ 75 mls/hr IV . [id number] COUNT INCLUDES THE [facility] Rx#:[id number] Oral 0 200 100 Other: Voiding Method Toilet Toilet Toilet # Voids 240 1 - Exam PHYSICAL EXAM: GENERAL APPEARANCE: Patient is a well-developed, female who appears to be in no acute distress. HEENT: Normocephalic, atraumatic, no facial asymmetry is seen. Neck is supple with no masses felt. CARDIOVASCULAR: Regular rate and rhythm. ABDOMEN: Nontender, nondistended. EXTREMITIES: Show no edema or clubbing. NEUROLOGICAL EXAM: Patient is awake, alert, and oriented 2. Patient states the year is 2017. Patient has generalized weakness but is moving all 4 extremities. Strength is 4-/5 in all 4 extremities. No obvious sensory deficit noted. No facial asymmetry on cranial nerve testing. No seizures or tremor noted. - Labs CBC & Chem 7: 12/08/17 07:18 12/08/17 07:18 Labs: Abnormal Lab Results - Last 24 Hours (Table) 12/07/17 12/07/17 12/08/17 Range/Units 17:25 20:55 07:08 RBC (3.80-5.40) m/uL Hgb (11.4-16.0) gm/dL Sodium (137-145) mmol/L BUN (7-17) mg/dL Glucose (74-99) mg/dL POC Glucose (mg/dL) 144 H 149 H 103 H (75-99) mg/dL 12/08/17 12/08/17 Range/Units 07:18 07:18 RBC 3.79 L (3.80-5.40) m/uL Hgb 11.3 L (11.4-16.0) gm/dL Sodium 136 L (137-145) mmol/L BUN 20 H (7-17) mg/dL Glucose 112 H (74-99) mg/dL POC Glucose (mg/dL) (75-99) mg/dL Assessment and Plan Plan: Impression: 1. Altered mental status. 2. Multifactorial encephalopathy. 3. Abnormal computed tomography scan and MRI of the brain with hypoattenuation seen in the frontal lobes bilaterally. 4. Recurrent urinary tract infections Recommendation: It does appear patient has hemorrhagic changes according to the MRI of the brain as well as changes consistent with vasogenic edema. The case was discussed with Dr. Bryan and the plan is to try to transfer the patient to another hospital that has neurosurgical service. There is concern if the hemorrhage increases in size, she would need neurosurgical intervention. In the differential diagnosis, these MRI changes still include hemorrhagic metastasis from an unknown primary source. She will need oncology consultation as well. Continue neurological checks. Her EEG is pending. I will continue to follow with you. Further recommendations to follow. I performed an examination of the patient and discussed the management with the NANNY BABYSITTER. I have reviewed the NANNY BABYSITTER notes and agree with the findings and plan of care.
[2017-12-08 15:05] VITALS: BP 146/72; PULSE 68; RESP 12; TEMP 97.9
--- NOTE | 2017-12-08 15:28 | US ---
EXAMINATION TYPE: US carotid duplex BILAT DATE OF EXAM: 12/08/2017 COMPARISON: NONE CLINICAL HISTORY: 87-year-old female CVA. Patient c/o overall weakness TECHNIQUE: Carotid duplex ultrasound examination. Indirect Doppler criteria was utilized. FINDINGS: Nassar scale images show moderate atherosclerotic change at the bifurcations. EXAM MEASUREMENTS: RIGHT: Peak Systolic Velocity (PSV) cm/sec ----- Right CCA: 62.4 ----- Right ICA: 107.4 ----- Right ECA: 78.4 ICA/CCA ratio: 1.7 RIGHT: End Diastole cm/sec ----- Right CCA: 10.0 ----- Right ICA: 17.3 ----- Right ECA: 12.9 LEFT: Peak Systolic Velocity (PSV) cm/sec ----- Left CCA: 82.7 ----- Left ICA: 92.9 ----- Left ECA: 94.3 ICA/CCA ratio: 1.1 LEFT: End Diastole cm/sec ----- Left CCA: 7.1 ----- Left ICA: 10.0 ----- Left ECA: 0.0 VERTEBRALS (direction of flow): Right Vertebral: Antegrade Left Vertebral: Antegrade Rhythm: Arrhythmia IMPRESSION: Moderate atherosclerotic change at the bifurcations. However, no hemodynamically significant stenosis appreciated in either internal carotid artery. Criteria for Assigning % of Stenosis / Diameter reduction (Estimation based on the indirect measurements of the internal carotid artery velocities (ICA PSV). 1. Normal (no stenosis)=ICA PSV < 125 cm/s: ratio < 2.0: ICA EDV<40 cm/s. 2. Less than 50% stenosis=ICA PSV < 125 cm/s: ratio < 2.0: ICA EDV<40 cm/s. 3. 50 to 69% stenosis=ICA PSV of 125 to 230 cm/s: ration 2.0 ? 4.0: ICA EDV 40-100 cm/s. 4. Greater than 70% stenosis to near occlusion= ICA PSV > 230 cm/s: ratio > 4.0: ICA EDV > 100 cm/s. 5. Near occlusion= ICA PSV velocities may be low or undetectable: variable ratio and ICA EDV. 6. Total occlusion=unable to detect flow.
--- NOTE | 2017-12-08 21:11 | DS ---
DISCHARGE SUMMARY FINAL DIAGNOSES: 1. Change in mental status. Possible bilateral frontal strokes with possible hemorrhagic conversion. Rule out metastatic malignancy or primary malignancy. 2. Urinary tract infection present on admission. 3. Hypertensive urgency. 4. Bilateral leg swelling. 5. Chronic venous stasis edema. 6. Diabetes type 2. 7. GERD. 8. Hyperlipidemia. 9. History of gait dysfunction. 10.History of chronic lower extremity varicosities. 11.Aortic stenosis, nonrheumatic, severe with tricuspid regurgitation. 12.History of degenerative joint disease. 13.NO CODE, NO CPR, NO VENT. DISCHARGE DISPOSITION: Patient is being transferred in stable condition. Guarded prognosis. Total time taken 35 minutes. HISTORY OF PRESENT ILLNESS: This 87-year-old woman with a past medical history of multiple medical problems admitted with bilateral leg swelling and some change in mental status. Evaluation including MRA showed bilateral frontal lobe strokes with possible hemorrhagic conversion or a metastatic lesion with vasogenic edema or even a primary tumor. Neurology Dr. Araujo saw the patient. Recommend the patient be transferred to tertiary care center. I discussed the case with the neurologist in [facility]. The patient is being transferred to [facility] in stable condition. Guarded prognosis. EXAM: Vitals are stable. Cardiovascular: S1, S2 muffled. Respiration: A few scattered rhonchi. ABDOMEN: Soft. Nervous system: Diffusely weak. LABS: Noted. Please refer to the medication reconciliation for current medications. The patient treated with empiric antibiotics too as well. MMODL / IJN: [id number] /
--- NOTE | 2017-12-09 14:52 | ECHOF ---
Referral Reason:lv function, CVA MEASUREMENTS -------- HEIGHT: 160.0 cm WEIGHT: 73.9 kg BP: 171/67 RVIDd: 3.1 cm (< 3.3) IVSd: 1.0 cm (0.6 - 1.1) LVIDd: 4.9 cm (3.9 - 5.3) LVPWd: 1.0 cm (0.6 - 1.1) IVSs: 1.3 cm LVIDs: 3.6 cm LVPWs: 1.4 cm LAESV Index (A-L): 41.27 ml/m Ao Diam: 2.9 cm (2.0 - 3.7) AV Cusp: 0.8 cm (1.5 - 2.6) LA Diam: 3.2 cm (2.7 - 3.8) MV E Casimiro: 0.98 m/s MV DecT: 171 ms MV A Casimiro: 0.93 m/s MV E/A Ratio: 1.06 AV maxP.66 mmHg AV meanP.20 mmHg AR PHT: 409 ms RAP: 5.00 mmHg RVSP: 43.98 mmHg FINDINGS -------- Sinus rhythm with extra systolic beats. This was a technically adequate study. The left ventricular size is normal. Left ventricular wall thickness is normal. Overall left vent ricular systolic function is normal with, an EF between 55 - 60 %. The right ventricle is mildly enlarged. LA is severely dilated >40 ml/m2 RA appears enlarged. Aortic valve is trileaflet and is severely thickened. There is moderate aortic regurgitation. The aortic pressure half-time by doppler is 409ms. There is [id number] aortic stenosis present . Peak/mean gradient across the Aortic Valve is 58.66mmHg / 38.20mmHg. The mitral valve leaflets are mildly thickened. Moderate mitral regurgitation is present. Moderate to severe tricuspid regurgitation present. There is mild pulmonary hypertension. The rig ht ventricular systolic pressure, as measured by Doppler, is 43.98mmHg. The pulmonic valve was not well visualized. The aortic root size is normal. Normal inferior vena cava with normal inspiratory collapse consistent with estimated right atrial pre ssure of 5 mmHg. The pericardium is normal. There is no pericardial effusion. CONCLUSIONS -------- 1. Sinus rhythm with extra systolic beats. 2. This was a technically adequate study. 3. The left ventricular size is normal. 4. Left ventricular wall thickness is normal. 5. Overall left ventricular systolic function is normal with, an EF between 55 - 60 %. 6. The right ventricle is mildly enlarged. 7. LA is severely dilated >40 ml/m2 8. RA appears enlarged. 9. Aortic valve is trileaflet and is severely thickened. 10. There is moderate aortic regurgitation. 11. The aortic pressure half-time by doppler is 409ms. 12. There is sszngasf-yb-zgrhyd aortic stenosis present. 13. Peak/mean gradient across the Aortic Valve is 58.66mmHg / 38.20mmHg. 14. The mitral valve leaflets are mildly thickened. 15. Moderate mitral regurgitation is present. 16. Moderate to severe tricuspid regurgitation present. 17. There is mild pulmonary hypertension. 18. The right ventricular systolic pressure, as measured by Doppler, is 43.98mmHg. 19. The pulmonic valve was not well visualized. 20. The aortic root size is normal. 21. There is no pericardial effusion. CARTON FILLER: Heriberto Arora RDCS
== END 2017-12-08 15:48 | disposition short-term general hospital (02) | DRG 80 ==
LOC: EC 15:17 → 5MS5E 20:20
PROVIDERS: ADMIT Hospitalist; ATTEND Hospitalist
DX: G93.6 Cerebral edema (principal); G93.41 Metabolic encephalopathy; L03.115 Cellulitis of right lower limb; E11.65 Type 2 diabetes mellitus with hyperglycemia; L03.116 Cellulitis of left lower limb; I36.1 Nonrheumatic tricuspid (valve) insufficiency; N39.0 Urinary tract infection, site not specified; I35.1 Nonrheumatic aortic (valve) insufficiency; Z66 Do not resuscitate; I10 Essential (primary) hypertension; I87.8 Other specified disorders of veins; I83.90 Asymptomatic varicose veins of unspecified lower extremity; K21.9 Gastro-esophageal reflux disease without esophagitis; I16.0 Hypertensive urgency; E78.5 Hyperlipidemia, unspecified; R26.9 Unspecified abnormalities of gait and mobility; M54.2 Cervicalgia; M17.0 Bilateral primary osteoarthritis of knee; M19.042 Primary osteoarthritis, left hand; M19.041 Primary osteoarthritis, right hand; L71.9 Rosacea, unspecified; G89.29 Other chronic pain; Z79.84 Long term (current) use of oral hypoglycemic drugs; M10.9 Gout, unspecified; Z79.899 Other long term (current) drug therapy; Z90.710 Acquired absence of both cervix and uterus; Z98.42 Cataract extraction status, left eye; Z98.41 Cataract extraction status, right eye; Z96.1 Presence of intraocular lens; Z87.891 Personal history of nicotine dependence; Z86.59 Personal history of other mental and behavioral disorders
CPT/HCPCS: 36415; 70450; 70553; 71046; 80048; 80053; 81001; 83036; 83880; 85025; 85610; 85730; 87077; 87086; 87186; 93005; 93306; 93880; 93970; 96374; 96375; 99284

== ENCOUNTER → 2018-01-22 | Outpatient (CLI) | payer MEDICARE, BC ==
--- NOTE | 2018-01-22 14:43 | MR ---
EXAMINATION TYPE: MR brain wo/w con DATE OF EXAM: 01/22/2018 COMPARISON: 12/07/2017, CT brain 08/04/2018 HISTORY: F/u to Prior MRI results CONTRAST: Performed utilizing 7 mL intravenous Gadavist gadolinium contrast. TECHNIQUE: Multiplanar, multiecho imaging on a 3.0 Katherine magnet is performed through the brain. Stud y is performed within 24 hours of arrival to the hospital. The craniovertebral junction is normal. The pituitary is normal. Diffusion-weighted imaging is performed. There is hyperintensity within the left and right frontal l obes extending towards the anterior horns of the lateral ventricles. White matter changes are eviden t in adjacent regions on inversion recovery weighted sequences. Findings may be related to prior hemo rrhage in these locations. Suspicious enhancement is not identified. Signal appears stable between T1 and postcontrast T1 imaging. There is some periventricular white matter hyperintensity which can be compatible with microvascular ischemic change. Ventricles and sulci are prominent for the patient age. IMPRESSIONS: 1. Suspected evolving contusions frontal lobes bilaterally. Interval growth to suggest mass is not id entified. Consider monitoring with CT.
== END | disposition home or self-care (01) ==
LOC: RADMRIMAIN 13:08
PROVIDERS: ATTEND Neurological Surgery
DX: D49.6 Neoplasm of unspecified behavior of brain (principal)
CPT/HCPCS: 70553; A9581

== ENCOUNTER 2018-04-13 15:29 | Inpatient (IN) | payer MEDICARE, BC ==
[2018-04-13] MEDS ORDERED: SODIUM CHLORIDE 0.9% 1,000 ML IV STA (15:40)
[2018-04-13 16:08] LABS: Basophils % (A) 1 %; Eosinophils # (A) 0.2 k/uL (0-0.7); Eosinophils % (A) 3 %; HCT 37.6 % (34.0-46.0); HGB 12.8 gm/dL (11.4-16.0); Lymphocytes # (A) 0.5 k/uL (1.0-4.8); Lymphocytes % (A) 10 %; MCH 30.9 pg (25.0-35.0); MCHC 34.1 g/dL (31.0-37.0); MCV 90.4 fL (80.0-100.0); Mean Platelet Volume 7.6; Monocytes # (A) 0.2 k/uL (0-1.0); Monocytes % (A) 5 %; Neutrophils # (A) 4.1 k/uL (1.3-7.7); Neutrophils % (A) 81 %; RBC 4.16 m/uL (3.80-5.40); RDW 14.1 % (11.5-15.5)
[2018-04-13 16:11] LABS: Albumin 4.1 g/dL (3.5-5.0); Calcium 9.2 mg/dL (8.4-10.2); Potassium 4.4 mmol/L (3.5-5.1); Total Bilirubin 0.7 mg/dL (0.2-1.3)
--- NOTE | 2018-04-13 16:13 | ED ---
Fall HPI - General Chief Complaint: Fall Stated Complaint: FALL Time Seen by Provider: 04/13/18 15:35 Source: patient, family, EMS, RN notes reviewed Mode of arrival: EMS Limitations: no limitations - History of Present Illness Initial Comments: This is an 87-year-old female presents emergency department via EMS with complaints of a fall. Patient states that she rolled out of bed last night and injured her right hip and back region. Patient family states that she was more lethargic than usual today and did not want to get out of bed so they're concerned. She does have a history of dementia but seems to be slightly off her baseline. Patient complains of headache denies neck pain denies chest pain , shortness breath. She denies any recent cough or cold like symptoms. She has had frequent urinary tract infections which family is concerned about. Patient has a current temp 100.3. She went to right hip pain and pain with range of motion. Denies any right knee, right lower leg injury. - Related Data Home Medications Medication Instructions Recorded Confirmed Furosemide [Lasix] 20 mg PO QAM 04/19/15 04/13/18 metFORMIN HCL [Glucophage] 1,000 mg PO BID-W/MEALS 10/22/16 04/13/18 Loratadine [Claritin] 10 mg PO DAILY 12/03/17 04/13/18 Allergies Allergy/AdvReac Type Severity Reaction Status Date / Time aspirin AdvReac Abdominal Verified 04/13/18 16:02 Pain Review of Systems ROS Statement: Those systems with pertinent positive or pertinent negative responses have been documented in the HPI. ROS Other: All systems not noted in ROS Statement are negative. Past Medical History Past Medical History: Chest Pain / Angina, Diabetes Mellitus, GERD/Reflux, Hyperlipidemia, Hypertension, Memory Impairment, Osteoarthritis (OA), Skin Disorder Additional Past Medical History / Comment(s): NIDDM type II, cervical pain- wears cervical collar, OA multiple joints, heart murmur, aortic stenosis, tricuspid regurgitation, ROSACEA, GOUT, ANEMIA, MIGARAINES,SINUS PROBLEMS, INCONT OF URINE-wears depends at night, short term memory prb, falls, vertigo, bilateral varicosities, lower leg/pedal edema sore on rt foot, [place] History of Any Multi-Drug Resistant Organisms: None Reported Past Surgical History: Hysterectomy Additional Past Surgical History / Comment(s): BOWEL NICKED DURING A COLONOSCOPY HAD SX TO CORRECT. MANUEL CATARACTS-LENS IMPLANTS, D&C, epidural injections to back Past Anesthesia/Blood Transfusion Reactions: No Reported Reaction Past Psychological History: Anxiety, Depression Smoking Status: Former smoker - Past Family History Mother Family Medical History: Myocardial Infarction ([place]) Additional Family Medical History / Comment(s): from [place] age 60 Father Additional Family Medical History / Comment(s): in his 80's from old age. General Exam General appearance: alert, in no apparent distress Head exam: Present: atraumatic, normocephalic, normal inspection Eye exam: Present: normal appearance, PERRL, EOMI. Absent: scleral icterus, conjunctival injection, periorbital swelling ENT exam: Present: normal exam, normal oropharynx, mucous membranes moist Neck exam: Present: normal inspection, full ROM. Absent: tenderness, meningismus, lymphadenopathy Respiratory exam: Present: normal lung sounds bilaterally. Absent: respiratory distress, wheezes, rales, rhonchi, stridor Cardiovascular Exam: Present: regular rate, normal rhythm, normal heart sounds. Absent: systolic murmur, diastolic murmur, rubs, gallop, clicks GI/Abdominal exam: Present: soft, normal bowel sounds. Absent: distended, tenderness, guarding, rebound, rigid Extremities exam: Present: other (Mild to moderate tenderness the right hip pain with range of motion neurovascular intact right lower extremity) Back exam: Present: normal inspection, full ROM. Absent: tenderness, paraspinal tenderness, vertebral tenderness Neurological exam: Present: alert, CN II-XII intact, reflexes normal. Absent: oriented X3, motor sensory deficit Skin exam: Present: warm, dry, intact, normal color. Absent: rash Course Vital Signs 04/13/18 04/13/18 04/13/18 15:30 16:13 17:25 Temperature 100.3 F H 98.8 F Pulse Rate 61 60 Respiratory 18 16 18 Rate Blood Pressure 203/88 209/85 223/88 O2 Sat by Pulse 92 L 100 Oximetry 04/13/18 04/13/18 18:28 18:41 Temperature 97.3 F L Pulse Rate 69 Respiratory 18 Rate Blood Pressure 169/72 177/74 O2 Sat by Pulse 97 Oximetry Medical Decision Making - Medical Decision Making 87-year-old female presented for a fall. Patient went of right hip pain, back pain. Patient had complete workup including lab work, CT, x-ray with no acute findings there is evidence of old stroke in which this was remote history. Patient has continued difficulty and bleeding, difficulty moving right leg unable to go home at this time. Patient will be admitted for further care. - Lab Data Result diagrams: 04/13/18 15:54 04/13/18 15:54 Lab Results 04/13/18 04/13/18 04/13/18 Range/Units 15:54 15:54 15:54 WBC 5.0 (3.8-10.6) k/uL RBC 4.16 (3.80-5.40) m/uL Hgb 12.8 (11.4-16.0) gm/dL Hct 37.6 (34.0-46.0) % MCV 90.4 (80.0-100.0) fL MCH 30.9 (25.0-35.0) pg MCHC 34.1 (31.0-37.0) g/dL RDW 14.1 (11.5-15.5) % Plt Count 44 L* (150-450) k/uL Neutrophils % 81 % Lymphocytes % 10 % Monocytes % 5 % Eosinophils % 3 % Basophils % 1 % Neutrophils # 4.1 (1.3-7.7) k/uL Lymphocytes # 0.5 L (1.0-4.8) k/uL Monocytes # 0.2 (0-1.0) k/uL Eosinophils # 0.2 (0-0.7) k/uL Basophils # 0.0 (0-0.2) k/uL Manual Slide Review Performed RBC Morphology Normal Sodium 136 L (137-145) mmol/L Potassium 4.4 (3.5-5.1) mmol/L Chloride 97 L (98-107) mmol/L Carbon Dioxide 27 (22-30) mmol/L Anion Gap 12 mmol/L BUN 18 H (7-17) mg/dL Creatinine 0.92 (0.52-1.04) mg/dL Est GFR (CKD-EPI)AfAm 66 (>60 ml/min/1.73 sqM) Est GFR (CKD-EPI)NonAf 57 (>60 ml/min/1.73 sqM) Glucose 152 H (74-99) mg/dL Plasma Lactic Acid Thad 1.4 (0.7-2.0) mmol/L Calcium 9.2 (8.4-10.2) mg/dL Total Bilirubin 0.7 (0.2-1.3) mg/dL AST 23 (14-36) U/L ALT 25 (9-52) U/L Alkaline Phosphatase 85 (38-126) U/L Total Protein 7.0 (6.3-8.2) g/dL Albumin 4.1 (3.5-5.0) g/dL Urine Color Urine Appearance (Clear) Urine pH (5.0-8.0) Ur Specific [place] (1.001-1.035) Urine Protein (Negative) Urine Glucose (UA) (Negative) Urine Ketones (Negative) Urine Blood (Negative) Urine Nitrite (Negative) Urine Bilirubin (Negative) Urine Urobilinogen (<2.0) mg/dL Ur Leukocyte Esterase (Negative) Urine RBC (0-5) /hpf Urine WBC (0-5) /hpf Ur Squamous Epith Cells (0-4) /hpf Urine Bacteria (None) /hpf Urine Mucus (None) /hpf 04/13/18 Range/Units 15:54 WBC (3.8-10.6) k/uL RBC (3.80-5.40) m/uL Hgb (11.4-16.0) gm/dL Hct (34.0-46.0) % MCV (80.0-100.0) fL MCH (25.0-35.0) pg MCHC (31.0-37.0) g/dL RDW (11.5-15.5) % Plt Count (150-450) k/uL Neutrophils % % Lymphocytes % % Monocytes % % Eosinophils % % Basophils % % Neutrophils # (1.3-7.7) k/uL Lymphocytes # (1.0-4.8) k/uL Monocytes # (0-1.0) k/uL Eosinophils # (0-0.7) k/uL Basophils # (0-0.2) k/uL Manual Slide Review RBC Morphology Sodium (137-145) mmol/L Potassium (3.5-5.1) mmol/L Chloride (98-107) mmol/L Carbon Dioxide (22-30) mmol/L Anion Gap mmol/L BUN (7-17) mg/dL Creatinine (0.52-1.04) mg/dL Est GFR (CKD-EPI)AfAm (>60 ml/min/1.73 sqM) Est GFR (CKD-EPI)NonAf (>60 ml/min/1.73 sqM) Glucose (74-99) mg/dL Plasma Lactic Acid Thad (0.7-2.0) mmol/L Calcium (8.4-10.2) mg/dL Total Bilirubin (0.2-1.3) mg/dL AST (14-36) U/L ALT (9-52) U/L Alkaline Phosphatase (38-126) U/L Total Protein (6.3-8.2) g/dL Albumin (3.5-5.0) g/dL Urine Color Light Yellow Urine Appearance Clear (Clear) Urine pH 7.0 (5.0-8.0) Ur Specific [place] 1.007 (1.001-1.035) Urine Protein Trace H (Negative) Urine Glucose (UA) Negative (Negative) Urine Ketones Negative (Negative) Urine Blood Negative (Negative) Urine Nitrite Negative (Negative) Urine Bilirubin Negative (Negative) Urine Urobilinogen <2.0 (<2.0) mg/dL Ur Leukocyte Esterase Trace H (Negative) Urine RBC 1 (0-5) /hpf Urine WBC 2 (0-5) /hpf Ur Squamous Epith Cells <1 (0-4) /hpf Urine Bacteria Rare H (None) /hpf Urine Mucus Rare H (None) /hpf - EKG Data EKG Comments: EKG performed at 15:49 sinus rhythm with first-degree AV block left axis deviation with a right bundle, rate of 61 MI 216 QRS 138 QT/QTc 438/440 Disposition Clinical Impression: Fall, Hypertension, Right hip pain, Thrombocytopenia, Altered mental status Narrative: Difficulty ambulating Disposition: ADMITTED IP TO THIS HOSP Condition: Stable Instructions: Hip Contusion (ED) Additional Instructions: Please return to the Emergency Department if symptoms worsen or any other concerns. Is patient prescribed a controlled substance at d/c from ED?: No Referrals: Scottie Bain DO [Primary Care Provider] - 1-2 days
[2018-04-13 16:19] LABS: Appearance,Urine Clear (Clear); Bacteria,Urine Rare /hpf; Bilirubin,Urine Negative (Negative); Blood,Urine Negative (Negative); Color,Urine Light Yellow; Glucose,Urine (UA) Negative (Negative); Ketones,Urine Negative (Negative); Leukocyte Esterase,Urine Trace (Negative); Mucus,Urine Rare /hpf; Nitrite,Urine Negative (Negative); Protein,Urine Trace (Negative); RBC,Urine 1 /hpf (0-5); Specific Gravity,Urine 1.007 (1.001-1.035); Squamous Epithelial Cell,Urine <1 /hpf (0-4); Urobilinogen,Urine <2.0 mg/dL (<2.0); WBC,Urine 2 /hpf (0-5)
[2018-04-13 16:31] LABS: Platelet Count 44 k/uL (150-450)
--- NOTE | 2018-04-13 17:16 | CT ---
EXAMINATION TYPE: CT brain casi cohen DATE OF EXAM: 04/13/2018 COMPARISON: NONE HISTORY: Fall last night, patient unable to walk today. CT DLP: 1184.6 mGycm Automated exposure control for dose reduction was used. TECHNIQUE: CT scan of the head and cervical spine are performed without contrast. FINDINGS: There is diffuse cerebral cortical atrophy. There is extensive hypodensity in both fronta l lobes. There is no mass effect nor midline shift. There is no sign of intracranial hemorrhage. The calvarium is intact. Cervical spine shows slight anterior subluxation of C4 in relation to C5. Facet joints are intact. Th ere is mild facet arthropathy. The skull base is intact. There is degenerative hypertrophic disc santoro ge at C6-7. IMPRESSION: Advanced cerebral atrophy. 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 These appear new compared to old CT scan of 01/31/2015. No acute intracranial ab normality. Spondylotic changes in the cervical spine. Degenerative minimal subluxation at C4-5 has progressed co mpared to old exam. No fracture.
--- NOTE | 2018-04-13 17:17 | XR ---
EXAMINATION TYPE: XR chest 2V DATE OF EXAM: 04/13/2018 COMPARISON: 12/03/2017 HISTORY: Fever TECHNIQUE: Frontal and lateral views of the chest are obtained. FINDINGS: There is no heart failure nor confluent pneumonic infiltrate. There is mild coarsening of interstitial markings. Thoracic aorta is atheromatous. There is no pleural effusion. Bony thorax is i ntact. IMPRESSION: Mild pulmonary fibrosis. No active cardiopulmonary disease. No change.
--- NOTE | 2018-04-13 17:22 | XR ---
EXAMINATION TYPE: XR Hip RT and AP Pelvis DATE OF EXAM: 04/13/2018 COMPARISON: 10/16/2014 HISTORY: Pelvic pain right hip pain TECHNIQUE: A single AP view of the pelvis is obtained. Two views of the right hip are obtained. FINDINGS: The pelvic ring is intact. Proximal right femur and hip joint are intact. There is no sign of hip dysplasia. Sacroiliac joints are intact. IMPRESSION: Negative pelvis and right hip exam. Hip joint space is fairly normal for age. No change.
[2018-04-13] MEDS ORDERED: hydrALAZINE HCL 20 MG/ML 1 ML VIAL IVP STA (17:30)
--- NOTE | 2018-04-13 19:21 | CT ---
EXAMINATION TYPE: CT hip RT wo con DATE OF EXAM: 04/13/2018 COMPARISON: NONE HISTORY: Right hip pain after fall. CT DLP: 511.7 mGycm Automated exposure control for dose reduction was used. FINDINGS: There is some osteopenia. There is mild narrowing of the right hip joint space. Acetabulum is intact. The proximal femur is intact. Right hemipelvis appears intact. IMPRESSION: MILD HIP JOINT SPACE NARROWING. NO FRACTURE SEEN.
[2018-04-13] MEDS ORDERED: ONDANSETRON 4 MG/2 ML VIAL IVP PRN (19:30)
[2018-04-13] MEDS ORDERED: NALOXONE 0.4 MG/ML 1 ML VIAL IV PRN (19:30)
[2018-04-13] MEDS ORDERED: HYDROcodone/APAP 5-325MG 1 EACH TAB PO PRN (19:30)
[2018-04-13] MEDS ORDERED: hydrALAZINE HCL 20 MG/ML 1 ML VIAL IVP PRN (19:40)
[2018-04-13] MEDS ORDERED: amLODIPine 5 MG TAB PO STA (22:07)
[2018-04-14 06:50] LABS: Glucose,Whole Blood 137 mg/dL (75-99)
[2018-04-14] MEDS: FUROSEMIDE 20 MG TAB PO SCH (10:43)
[2018-04-14] MEDS: INSULIN ASPART 100 UNIT/ML 1 ML 10 ML VIAL SQ SCH ×4 (10:43→21:45)
[2018-04-14] MEDS: metFORMIN 500 MG TAB PO SCH ×2 (10:43→18:07)
[2018-04-14] MEDS ORDERED: IOPAMIDOL-300 CONTRAST 30 ML VIAL (ORAL USE) PO PRN (11:21)
[2018-04-14 11:27] LABS: Calcium 8.6 mg/dL (8.4-10.2)
[2018-04-14 11:44] LABS: Glucose,Whole Blood 134 mg/dL (75-99)
--- NOTE | 2018-04-14 11:57 | P.CNOR ---
History of Present Illness - HPI Consult date: 04/14/18 History of present illness: This is an 87 year-old female who is admitted after a fall. Orthopedics is consulted due to complaints of right hip pain. Patient states that she fell last night and hit her head. Today patient denies any pain in the right hip or leg. Patient states that she does have back pain, but this is chronic for her. Patient denies any fever/chills, numbness, weakness or tingling. Review of Systems See HPI. Past Medical History Past Medical History: Chest Pain / Angina, Diabetes Mellitus, GERD/Reflux, Hyperlipidemia, Hypertension, Memory Impairment, Osteoarthritis (OA), Skin Disorder Additional Past Medical History / Comment(s): NIDDM type II, cervical pain- wears cervical collar, OA multiple joints, heart murmur, aortic stenosis, tricuspid regurgitation, ROSACEA, GOUT, ANEMIA, MIGARAINES,SINUS PROBLEMS, INCONT OF URINE-wears depends at night, short term memory prb, falls, vertigo, bilateral varicosities, lower leg/pedal edema sore on rt foot, [place] History of Any Multi-Drug Resistant Organisms: None Reported Past Surgical History: Hysterectomy Additional Past Surgical History / Comment(s): BOWEL NICKED DURING A COLONOSCOPY HAD SX TO CORRECT. MANUEL CATARACTS-LENS IMPLANTS, D&C, epidural injections to back Past Anesthesia/Blood Transfusion Reactions: No Reported Reaction Past Psychological History: Anxiety, Depression Additional Psychological History / Comment(s): Pt states she gets depressed sometimes d/t health problems but has no suicidal thoughts or plans. Pt's daughter (abiola) lives with her, pt uses a cane . 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 Smoking Status: Former smoker Past Alcohol Use History: None Reported Additional Past Alcohol Use History / Comment(s): SMOKED FOR 2 YEARS LESS THAN 1 PPD, QUIT 1955 Past Drug Use History: None Reported - Past Family History Mother Family Medical History: Myocardial Infarction ([place]) Additional Family Medical History / Comment(s): from [place] age 60 Father Additional Family Medical History / Comment(s): in his 80's from old age. Medications and Allergies Home Medications Medication Instructions Recorded Confirmed Type Furosemide [Lasix] 20 mg PO QAM 04/19/15 04/13/18 History metFORMIN HCL [Glucophage] 1,000 mg PO BID-W/MEALS 10/22/16 04/13/18 History Loratadine [Claritin] 10 mg PO DAILY 12/03/17 04/13/18 History Allergies Allergy/AdvReac Type Severity Reaction Status Date / Time aspirin AdvReac Abdominal Verified 04/13/18 16:02 Pain Physical Examination On exam patient is alert and lying comfortably in bed in no acute distress. Patient has full active and passive range of motion of the right and left lower extremities without pain or difficulty. Calves are soft and nontender bilaterally. Sensation intact bilaterally. Neurovascular status and circulatory status are intact. Results X-rays of the right hip and pelvis are reviewed and are negative for any fracture or dislocation. A CT of the right hip is negative for any fracture or dislocation. - Labs Labs: Abnormal Lab Results - Last 24 Hours (Table) 04/13/18 04/13/18 04/13/18 Range/Units 15:54 15:54 15:54 Plt Count 44 L* (150-450) k/uL Lymphocytes # 0.5 L (1.0-4.8) k/uL Sodium 136 L (137-145) mmol/L Chloride 97 L (98-107) mmol/L BUN 18 H (7-17) mg/dL Glucose 152 H (74-99) mg/dL POC Glucose (mg/dL) (75-99) mg/dL Urine Protein Trace H (Negative) Ur Leukocyte Esterase Trace H (Negative) Urine Bacteria Rare H (None) /hpf Urine Mucus Rare H (None) /hpf 04/14/18 04/14/18 04/14/18 Range/Units 06:39 10:20 11:40 Plt Count (150-450) k/uL Lymphocytes # (1.0-4.8) k/uL Sodium 135 L (137-145) mmol/L Chloride (98-107) mmol/L BUN 19 H (7-17) mg/dL Glucose 196 H (74-99) mg/dL POC Glucose (mg/dL) 137 H 134 H (75-99) mg/dL Urine Protein (Negative) Ur Leukocyte Esterase (Negative) Urine Bacteria (None) /hpf Urine Mucus (None) /hpf Microbiology - Last 24 Hours (Table) 04/13/18 15:54 Urine Culture - Preliminary Urine,Catheterized H & H 04/13/18 Range/Units 15:54 Hgb 12.8 (11.4-16.0) gm/dL Hct 37.6 (34.0-46.0) % Result Diagrams: 04/13/18 15:54 04/14/18 10:20 Assessment and Plan (1) Fall Current Visit: Yes Status: Acute Code(s): W19.XXXA - UNSPECIFIED FALL, INITIAL ENCOUNTER SNOMED Code(s): 9805002 Plan: 1. On exam patient has no pain in the right hip and has full range of motion of bilateral lower extremities without pain or difficulty. 2. Physical therapy recommended. 3. No surgical intervention planned. Patient may follow up as an outpatient on an as-needed basis.
[2018-04-14] MEDS: METOPROLOL TARTRATE 12.5 MG TAB PO SCH ×2 (12:53→20:05)
--- NOTE | 2018-04-14 12:56 | CT ---
EXAMINATION TYPE: CT abdomen wo con DATE OF EXAM: 04/14/2018 COMPARISON: NONE HISTORY: Upper abd pain CT DLP: 587 mGycm Examination of the solid and hollow viscera is limited given the lack of contrast. FINDINGS: LUNG BASES: No evidence for nodule. Basilar dependent atelectasis. 4 mm nodule right lower lobe. Depe ndent atelectasis and parenchymal scarring. Cardiomegaly. LIVER/GB: The gallbladder is unremarkable. No space-occupying hepatic lesion. Multiple hepatic and sp lenic granulomas. PANCREAS: No pancreatic mass identified. No inflammatory process seen. SPLEEN: No evidence for splenomegaly. No intrasplenic lesions seen. ADRENALS: No adrenal nodules identified. No evidence for thickening. KIDNEYS: Mild Atrophic changes of the kidneys No evidence for renal mass. No nephrolithiasis. No hydr onephrosis. BOWEL: Appendix has a normal appearance. No evidence of bowel obstruction. No inflammatory process. V isualized bowel loops are grossly unremarkable. Pelvic bowel loops not visualized. No evidence for fr ee air. Lymph nodes: No evidence for adenopathy greater than 1 cm. Abdominal aorta: Atheromatous changes seen. No evidence for aneurysm. Genital organs: No significant abnormality. Other: No significant abnormality. IMPRESSION: 1. No evidence for bowel obstruction or free air. No inflammatory process identified within the field -of-view.
[2018-04-14 13:11] LABS: HCT 33.8 % (34.0-46.0); HGB 11.2 gm/dL (11.4-16.0); MCH 30.6 pg (25.0-35.0); MCV 92.5 fL (80.0-100.0); Mean Platelet Volume 8.2; RBC 3.65 m/uL (3.80-5.40); RDW 14.4 % (11.5-15.5)
[2018-04-14 13:16] LABS: Platelet Count 34 k/uL (150-450)
--- NOTE | 2018-04-14 13:25 | P.CRDCN ---
History of Present Illness History of present illness: This is a pleasant 87-year-old female past medical history significant for aortic stenosis, diabetes mellitus, hypertension, dyslipidemia, dementia and gastroesophageal reflux disease. Patient necessary consultation for PVCs noted on telemetry. She follows with Dr. Pearson in the office. She is somewhat confused at the time of my exam and unable to answer questions pertaining to the history of present illness. Unable to get in touch with family most information is obtained from the medical record. She was brought to the hospital yesterday afternoon after falling out of bed. She complained of pain to the right hip and back. She was brought to the hospital family states that she seemed more confused than normal. She was febrile with a temperature 100.3F, blood pressure 203/88, 222/88. She was given IV hydralazine upon admission and started on amlodipine 5 mg daily. Repeat blood pressure this morning 129/68. Imaging of her hip and pelvis is negative for acute fracture or dislocation. At the time of my exam she is seen sitting up in bed comfortably in no acute distress. She denies feeling any symptoms of chest pain, shortness of breath, dizziness, nausea, palpitations or diaphoresis. She recalls that she did fall out of bed last night but does not recall having any symptoms prior to falling or thereafter. This far as she can recall she slipped and fell. EKG on admission reveals right bundle branch block pattern with first-degree AV block, no acute ST or T wave abnormalities noted. Repeat EKG was obtained in the night which revealed premature ventricular contractions. Chest x-ray reveals mild pulmonary fibrosis with no acute cardiopulmonary process noted. 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 Home medications include Lasix 20 mg daily, loratadine and metformin. Review of Systems At the time of my exam: CONSTITUTIONAL: Denies fever. Denies chills. EYES: Denies blurred vision. Denies vision changes. Denies eye pain. EARS, NOSE, MOUTH & THROAT: Denies headache. Denies sore throat. Denies ear pain. CARDIOVASCULAR: Denies chest pain. Denies shortness of breath. Denies orthopnea. Denies PND. Denies palpitations. RESPIRATORY: Denies cough. GASTROINTESTINAL: Denies abdominal pain. Denies diarrhea. Denies constipation. Denies nausea. Denies vomiting. MUSCULOSKELETAL: Denies myalgias. INTEGUMENTARY: Denies pruitis. Denies rash. NEUROLOGIC: Denies numbness. Denies tingling. Denies weakness. PSYCHIATRIC: Denies anxiety. Denies depression. ENDOCRINE: Denies fatigue. Denies weight change. Denies polydipsia. Denies polyurina. GENITOURINARY: Denies burning, hematuria or urgency with micturation. HEMATOLOGIC: Denies history of anemia. Denies bleeding. ROS unobtainable: due to mental status Past Medical History Past Medical History: Chest Pain / Angina, Diabetes Mellitus, GERD/Reflux, Hyperlipidemia, Hypertension, Memory Impairment, Osteoarthritis (OA), Skin Disorder Additional Past Medical History / Comment(s): NIDDM type II, cervical pain- wears cervical collar, OA multiple joints, heart murmur, aortic stenosis, tricuspid regurgitation, ROSACEA, GOUT, ANEMIA, MIGARAINES,SINUS PROBLEMS, INCONT OF URINE-wears depends at night, short term memory prb, falls, vertigo, bilateral varicosities, lower leg/pedal edema sore on rt foot, native History of Any Multi-Drug Resistant Organisms: None Reported Past Surgical History: Hysterectomy Additional Past Surgical History / Comment(s): BOWEL NICKED DURING A COLONOSCOPY HAD SX TO CORRECT. MANUEL CATARACTS-LENS IMPLANTS, D&C, epidural injections to back Past Anesthesia/Blood Transfusion Reactions: No Reported Reaction Past Psychological History: Anxiety, Depression Additional Psychological History / Comment(s): Pt states she gets depressed sometimes d/t health problems but has no suicidal thoughts or plans. Pt's daughter (abiola) lives with her, pt uses a cane . 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 Smoking Status: Former smoker Past Alcohol Use History: None Reported Additional Past Alcohol Use History / Comment(s): SMOKED FOR 2 YEARS LESS THAN 1 PPD, QUIT 1955 Past Drug Use History: None Reported - Past Family History Mother Family Medical History: Myocardial Infarction ([place]) Additional Family Medical History / Comment(s): from [place] age 60 Father Additional Family Medical History / Comment(s): in his 80's from old age. Medications and Allergies Home Medications Medication Instructions Recorded Confirmed Type Furosemide [Lasix] 20 mg PO QAM 04/19/15 04/13/18 History metFORMIN HCL [Glucophage] 1,000 mg PO BID-W/MEALS 10/22/16 04/13/18 History Loratadine [Claritin] 10 mg PO DAILY 12/03/17 04/13/18 History Allergies Allergy/AdvReac Type Severity Reaction Status Date / Time aspirin AdvReac Abdominal Verified 04/13/18 16:02 Pain Physical Exam Vitals: Vital Signs Temp Pulse Pulse Pulse Resp BP BP 04/14/18 02:35 71 129/68 04/14/18 01:50 98.6 F 85 16 167/51 04/14/18 00:40 97.6 F 72 16 128/64 04/13/18 23:55 75 128/71 04/13/18 23:20 76 172/97 04/13/18 22:00 98.0 F 85 16 195/84 04/13/18 20:32 98.1 F 66 16 180/72 04/13/18 18:41 97.3 F L 69 18 177/74 04/13/18 18:28 169/72 04/13/18 17:25 98.8 F 60 18 223/88 04/13/18 16:13 16 209/85 04/13/18 15:30 100.3 F H 61 18 203/88 Pulse Ox 04/14/18 02:35 04/14/18 01:50 94 L 04/14/18 00:40 95 04/13/18 23:55 04/13/18 23:20 04/13/18 22:00 95 04/13/18 20:32 95 04/13/18 18:41 97 04/13/18 18:28 04/13/18 17:25 100 04/13/18 16:13 04/13/18 15:30 92 L Intake and Output 04/13/18 04/14/18 04/14/18 22:59 06:59 14:59 Intake Total 1000 Output Total 550 Balance 450 Intake: Intake, IV Titration 1000 Amount Sodium Chloride 0.9% 1, 1000 000 ml @ 999 mls/hr IV . Q1H1M STA Rx#:[id number] Output: Urine 550 Uretheral (Cooley) 550 Other: # Voids 2 1 Weight 81.647 kg Blood pressure 129/68 heart rate 71 afebrile maintaining oxygen saturation on room air GENERAL: This is a 87-year-old female in no apparent distress at the time of my examination. HEENT: Head is atraumatic, normocephalic. Pupils are equal, round. Sclerae anicteric. Conjunctivae are clear. Mucous membranes of the mouth are moist. Neck is supple. There is mild less than 1 cm jugular venous distention. No carotid bruit is heard. LUNGS: Clear to auscultation no wheezes, rales or rhonchi. No chest wall tenderness is noted on palpation or with deep breathing. HEART: Regular rate and rhythm with systolic ejection murmur, no rubs or gallops. S1 and S2 heard. ABDOMEN: Soft, nontender. Bowel sounds are heard. No organomegaly noted. EXTREMITIES: No evidence of peripheral edema and no calf tenderness noted. VASCULAR: Radial and dorsalis pedis pulses palpated, no evidence of clubbing. NEUROLOGIC: Patient is awake, alert and oriented x3. Results 04/14/18 10:20 04/14/18 10:20 Cardiac Enzymes 04/13/18 Range/Units 15:54 AST 23 (14-36) U/L CBC 04/13/18 Range/Units 15:54 WBC 5.0 (3.8-10.6) k/uL RBC 4.16 (3.80-5.40) m/uL Hgb 12.8 (11.4-16.0) gm/dL Hct 37.6 (34.0-46.0) % Plt Count 44 L* (150-450) k/uL Comprehensive Metabolic Panel 04/13/18 04/14/18 Range/Units 15:54 10:20 Sodium 136 L 135 L (137-145) mmol/L Potassium 4.4 4.0 (3.5-5.1) mmol/L Chloride 97 L 100 (98-107) mmol/L Carbon Dioxide 27 25 (22-30) mmol/L BUN 18 H 19 H (7-17) mg/dL Creatinine 0.92 0.92 (0.52-1.04) mg/dL Glucose 152 H 196 H (74-99) mg/dL Calcium 9.2 8.6 (8.4-10.2) mg/dL AST 23 (14-36) U/L ALT 25 (9-52) U/L Alkaline Phosphatase 85 (38-126) U/L Total Protein 7.0 (6.3-8.2) g/dL Albumin 4.1 (3.5-5.0) g/dL Current Medications Generic Name Dose Route Start Last Admin Trade Name Freq PRN Reason Stop Dose Admin Acetaminophen 650 mg 04/13/18 19:30 Tylenol Tab PO Q6HR PRN Mild Pain or Fever > 100.5 Hydrocodone Bitart/Acetaminophen 1 each 04/13/18 19:30 [place] 5-325 PO Q4HR PRN Moderate Pain Amlodipine Besylate 5 mg 04/14/18 21:00 Norvasc PO HS [facility] Furosemide 20 mg 04/14/18 09:00 04/14/18 10:43 Lasix PO Not Given QAM [facility] Insulin Aspart 0 unit 04/14/18 07:30 04/14/18 10:43 Novolog SQ Not Given ACHS [facility] Protocol Metformin HCl 1,000 mg 04/14/18 07:30 04/14/18 10:43 Glucophage PO Not Given BID-W/MEALS [facility] Metoprolol Tartrate 12.5 mg 04/14/18 11:00 Lopressor PO BID [facility] Naloxone HCl 0.2 mg 04/13/18 19:30 Narcan IV Q2M PRN Opioid Reversal Ondansetron HCl 4 mg 04/13/18 19:30 Zofran IVP Q8HR PRN Nausea And Vomiting Intake and Output 04/13/18 04/14/18 04/14/18 22:59 06:59 14:59 Intake Total 1000 Output Total 550 Balance 450 Intake: Intake, IV Titration 1000 Amount Sodium Chloride 0.9% 1, 1000 000 ml @ 999 mls/hr IV . Q1H1M STA Rx#:[id number] Output: Urine 550 Uretheral (Cooley) 550 Other: # Voids 2 1 Weight 81.647 kg 04/13/18 15:54 04/14/18 10:20 Assessment and Plan Assessment: ASSESSMENT 1. Fall of unclear etiology with no acute injury noted. 2. Nonrheumatic aortic stenosis, chronic 3. Nonrheumatic mitral insufficiency, chronic 4. Hypertensive emergency 5. Dyslipidemia 6. Diabetes mellitus 7. Memory impairment, chronic 8. Thrombocytopenia PLAN Obtain 2-D echocardiogram and Doppler study to assess cardiac structure and function. Initiate on small dose of Lopressor 12.5 mg twice a day. Discontinue IV hydralazine. Further recommendations to follow based upon clinical course. Thank you kindly for this consultation. Nurse Practitioner note has been reviewed, I agree with a documented findings and plan of care. Patient was seen and examined.
--- NOTE | 2018-04-14 15:20 | HP ---
HISTORY AND PHYSICAL DATE OF SERVICE: 04/14/2018 CHIEF COMPLAINTS: Fall and right hip and back pain. HISTORY OF PRESENT ILLNESS: This 87-year-old woman with a past medical history of multiple medical problems including history of diabetes, GERD, hypertension, memory impairment, history of anxiety, depression, being followed by Dr. Bain in the outpatient setting was admitted after a fall. The patient apparently fell out of the bed and injured her right hip and back. The patient also hit her head also according to her and the patient was admitted for further evaluation and treatment. The patient also found to be mildly febrile. Otherwise the basic labs showed platelets of 44, previous platelets are normal. Sodium 136 and glucose 152. The patient admitted to the hospital for further evaluation and treatment. There is no history of any fever, rigors or chills. No history of headache, loss of consciousness, seizures. PAST MEDICAL HISTORY: History of diabetes, GERD, hypertension, hyperlipidemia, history of dementia, history of anxiety/depression. MEDICATIONS: Prior to admission include home medications are: 1. Metformin 1000 mg b.i.d. 2. Claritin 10 mg. 3. Lasix 20 mg p.o. q.a.m. ALLERGIES: ASPIRIN. FAMILY HISTORY: History of myocardial infarction in the family. SOCIAL HISTORY: Previous history of smoking. No history of current smoking or alcohol intake. REVIEW OF SYSTEMS: ENT: No diminished vision. No diminished hearing. Cardio system: No angina. RESPIRATORY: As mentioned earlier. GI: No nausea. : No dysuria. CENTRAL NERVOUS SYSTEM: As mentioned earlier. ALLERGY/IMMUNOLOGY: No asthma or hayfever. MUSCULOSKELETAL: As mentioned earlier. HEMATOLOGY/ONCOLOGY: History of diabetes. No hypothyroidism. CONSTITUTIONAL: As mentioned earlier. DERMATOLOGY: Negative. RHEUMATOLOGY: Negative. PSYCHIATRIC: As mentioned earlier. PHYSICAL EXAMINATION: The patient is alert and oriented times three. Pulse 85, blood pressure 167/51, respiration 16, temperature 98.6, pulse ox 94% on room air. HEENT: Conjunctivae normal. Oral mucosa moist. NECK is no jugular venous distention. No carotid bruit. No lymph node enlargement. CARDIOVASCULAR systems: S1, S2 muffled. RESPIRATORY: Breath sounds diminished at the bases. A few scattered rhonchi. No crackles. ABDOMEN: Soft, nontender. No mass palpable. LEGS: Minimal tenderness. CENTRAL NERVOUS SYSTEM: Higher functions as mentioned earlier. Moves all 4 limbs. No focal deficits. LYMPHATICS: No lymph nodes palpable in the neck, axillae or groin. SKIN: No ulcer, rash or bleeding. LAB STUDIES: Hemoglobin 8.4, platelets ntd. Sodium 135. ASSESSMENT: 1. Fall and right hip pain, possible contusion. 2. Thrombocytopenia of undetermined etiology. 3. Hyponatremia. 4. Diabetes type 2. 5. Gastroesophageal reflux disease. 6. Hypertension. 7. Hyperlipidemia. 8. History of dementia. 9. Gait dysfunction. 11.History of gout. 12.History of hysterectomy. 13.Anxiety, depression. RECOMMENDATIONS AND DISCUSSION: In this 87-year-old woman who presented with multiple complex medical issues, we will monitor the patient closely, continue the current medications, management and symptomatic treatment. We will resume the home medications. Monitor blood pressure closely. DVT prophylaxis. Symptomatic treatment of the pain. PT/OT evaluation and social work evaluation to evaluate the home situation for possible ECF rehab. Guarded prognosis because of multiple complex medical issues. Further recommendations to follow. See orders for further details. MMODL / IJN: [id number] / MTDD
[2018-04-14 15:27] VITALS: BMI 31.8
[2018-04-14 17:59] LABS: Glucose,Whole Blood 121 mg/dL (75-99)
--- NOTE | 2018-04-14 18:44 | P.CONS ---
History of Present Illness - Reason for Consult Consult date: 04/14/18 Thrombocytopenia - History of Present Illness The patient is an 87-year-old lady with multiple medical problems. Patient had apparently fallen excellently well tried to get out of bed. She was found in the floor by her daughter. She had hurt her right hip and head. She'll brought into the emergency room and had extensive imaging which revealed no evidence of fractures, or internal bleeding. However it was noted that her platelets were low at 44. Other CBC indices were essentially normal other than a very mild anemia in the 11 range. Review of labs from previous admissions show that in 01/03 her platelet counts were normal. They had been consistently normal in admissions prior to that also. Consult was therefore placed for further evaluation and recommendations The patient has known dementia and is confused and was unable to provide a coherent history. Therefore information was obtained from the patient's daughter who was at the bedside. There is no history of any recent infection type symptoms, or new medications. There is no prior history of blood related problems, malignancy or autoimmune disease. Her last hospitalization was in 01/03 Review of Systems Constitutional: Reports weakness Eyes: denies blurred vision, denies pain Ears: deny: decreased hearing, ear discharge, earache, tinnitus Ears, nose, mouth and throat: Denies headache, Denies sore throat Cardiovascular: Reports decreased exercise tolerance Respiratory: Denies cough Gastrointestinal: Denies abdominal pain, Denies diarrhea, Denies nausea, Denies vomiting Genitourinary: Reports urge incontinence Menstruation: Reports postmenopausal Musculoskeletal: Reports as per HPI, Reports muscle weakness Integumentary: Denies pruritus, Denies rash Neurological: Reports as per HPI, Reports memory loss Psychiatric: Reports memory loss Endocrine: Denies fatigue, Denies weight change Hematologic/Lymphatic: Reports as per HPI Past Medical History Past Medical History: Chest Pain / Angina, Diabetes Mellitus, GERD/Reflux, Hyperlipidemia, Hypertension, Memory Impairment, Osteoarthritis (OA), Skin Disorder Additional Past Medical History / Comment(s): NIDDM type II, cervical pain- wears cervical collar, OA multiple joints, heart murmur, aortic stenosis, tricuspid regurgitation, ROSACEA, GOUT, ANEMIA, MIGARAINES,SINUS PROBLEMS, INCONT OF URINE-wears depends at night, short term memory prb, falls, vertigo, bilateral varicosities, lower leg/pedal edema sore on rt foot, tolowa dee-ni' History of Any Multi-Drug Resistant Organisms: None Reported Past Surgical History: Hysterectomy Additional Past Surgical History / Comment(s): BOWEL NICKED DURING A COLONOSCOPY HAD SX TO CORRECT. MANUEL CATARACTS-LENS IMPLANTS, D&C, epidural injections to back Past Anesthesia/Blood Transfusion Reactions: No Reported Reaction Smoking Status: Former smoker - Past Family History Mother Family Medical History: Myocardial Infarction ([place]) Additional Family Medical History / Comment(s): from [place] age 60 Father Additional Family Medical History / Comment(s): in his 80's from old age. Medications and Allergies Home Medications Medication Instructions Recorded Confirmed Type Furosemide [Lasix] 20 mg PO QAM 04/19/15 04/13/18 History metFORMIN HCL [Glucophage] 1,000 mg PO BID-W/MEALS 10/22/16 04/13/18 History Loratadine [Claritin] 10 mg PO DAILY 12/03/17 04/13/18 History Allergies Allergy/AdvReac Type Severity Reaction Status Date / Time aspirin AdvReac Abdominal Verified 04/13/18 16:02 Pain Physical Exam Vitals: Vital Signs Temp Pulse Pulse Pulse Resp BP BP 04/14/18 15:00 98.4 F 71 16 119/77 04/14/18 02:35 71 129/68 04/14/18 01:50 98.6 F 85 16 167/51 04/14/18 00:40 97.6 F 72 16 128/64 04/13/18 23:55 75 128/71 04/13/18 23:20 76 172/97 04/13/18 22:00 98.0 F 85 16 195/84 04/13/18 20:32 98.1 F 66 16 180/72 04/13/18 18:41 97.3 F L 69 18 177/74 Pulse Ox 04/14/18 15:00 98 04/14/18 02:35 04/14/18 01:50 94 L 04/14/18 00:40 95 04/13/18 23:55 04/13/18 23:20 04/13/18 22:00 95 04/13/18 20:32 95 04/13/18 18:41 97 Intake and Output 04/14/18 04/14/18 04/14/18 06:59 14:59 22:59 Other: Voiding Method Bedpan # Voids 1 1 Weight 81.647 kg - Constitutional General appearance: no acute distress - EENT Eyes: EOMI, PERRLA ENT: hearing grossly normal, normal oropharynx - Neck Neck: no lymphadenopathy Thyroid: bilateral: normal size - Respiratory Respiratory: bilateral: CTA - Cardiovascular Rhythm: regular Heart sounds: abnormal: S1 (diminished), S2 (Diminished) Abnormal Heart Sounds: systolic murmur (Ejection systolic murmur, late peaking, most prominent over AV radiating to carotids) - Gastrointestinal General gastrointestinal: normal bowel sounds, soft - Integumentary Mild scattered bruises - Neurologic Neurologic: CNII-XII intact - Musculoskeletal Changes of DJD in fingers of both hands Musculoskeletal: generalized weakness, strength equal bilaterally - Psychiatric Pleasantly confused Results CBC & Chem 7: 04/14/18 10:20 04/14/18 10:20 Labs: Abnormal Lab Results - Last 24 Hours (Table) 04/14/18 04/14/18 04/14/18 Range/Units 06:39 10:20 10:20 RBC 3.65 L (3.80-5.40) m/uL Hgb 11.2 L (11.4-16.0) gm/dL Hct 33.8 L (34.0-46.0) % Plt Count 34 L* (150-450) k/uL Sodium 135 L (137-145) mmol/L BUN 19 H (7-17) mg/dL Glucose 196 H (74-99) mg/dL POC Glucose (mg/dL) 137 H (75-99) mg/dL 04/14/18 04/14/18 Range/Units 11:40 17:57 RBC (3.80-5.40) m/uL Hgb (11.4-16.0) gm/dL Hct (34.0-46.0) % Plt Count (150-450) k/uL Sodium (137-145) mmol/L BUN (7-17) mg/dL Glucose (74-99) mg/dL POC Glucose (mg/dL) 134 H 121 H (75-99) mg/dL Microbiology - Last 24 Hours (Table) 04/13/18 15:54 Blood Culture - Preliminary Blood No Growth after 24 hours 04/13/18 15:54 Urine Culture - Preliminary Urine,Catheterized Comments: Reports of musculoskeletal x-rays, as well as computed tomography scan of the hip reviewed Chest x-ray: report reviewed CT Scan - head: report reviewed MRI - head: report reviewed Assessment and Plan (1) Thrombocytopenia Narrative/Plan: The patient is presenting with isolated thrombocytopenia. Other CBC indices are essentially normal. Her peripheral blood smear was personally reviewed. There is no evidence of clumping of platelets. CBC was repeated in a citrated tube with thrombocytopenia again confirmed. There was no evidence of microangiopathic hemolytic changes in the peripheral smear either. Kidney function is normal. Scattered large platelet forms were seen. - Given the isolated thrombo-cytopenia, and presence of larger platelet forms on the peripheral smear, a destructive process is suspected. The patient does not have extensive bruising, or evidence of infection to suggest consumption due to those causes. Therefore at this time an ITP-type phenomenon needs to be considered. Other etiologies are not ruled out. - Possible etiologies and differentials were discussed with the patient and her daughter in detail. Her platelet counts are in a safe range with no evidence of obvious bleeding. Therefore an acute intervention to increase the platelet count is not required. We will continue to monitor. In the meantime I will order lab work up with B12/folate studies, PEP studies, as well as autoimmune and inflammatory markers. - I will also order HIT antibody testing. Typically this occurs within 2-4 weeks after initial exposure. However there are case reports of delayed manifestations. The patient may have been exposed to Lovenox or heparin during her previous admissions. - Avoid exposure to anticoagulation or antiplatelet agents given platelet counts of less than 50,000. Subcu heparin will be discontinued, and the patient will be placed on SCDs Current Visit: Yes Status: Acute Code(s): D69.6 - THROMBOCYTOPENIA, UNSPECIFIED SNOMED Code(s): 627214105 Plan: The patient has multiple other medical problems as noted in the problem list. Defer to the admitting service and other consultants for management of those.
[2018-04-14] MEDS ORDERED: amLODIPine 5 MG TAB PO SCH (21:00)
[2018-04-14] MEDS ORDERED: HEPARIN SODIUM,PORCINE 5,000 UNIT/ML 1 ML VIAL SQ SCH (21:00)
[2018-04-14 21:27] LABS: Glucose,Whole Blood 155 mg/dL (75-99)
[2018-04-15 01:42] LABS: Protein, Total 5.9 g/dL (6.2-8.2); Rheumatoid Factor 17 IU/mL (0-15)
--- NOTE | 2018-04-15 07:08 | ECHOF ---
Referral Reason:AOV stenosis MEASUREMENTS -------- HEIGHT: 158.8 cm WEIGHT: 68.0 kg BP: 129/68 RVIDd: 2.9 cm (< 3.3) IVSd: 1.2 cm (0.6 - 1.1) LVIDd: 4.4 cm (3.9 - 5.3) LVPWd: 1.3 cm (0.6 - 1.1) IVSs: 1.5 cm LVIDs: 3.4 cm LVPWs: 1.8 cm LA Diam: 4.1 cm (2.7 - 3.8) LAESV Index (A-L): 29.65 ml/m Ao Diam: 3.3 cm (2.0 - 3.7) AV Cusp: 1.6 cm (1.5 - 2.6) MV EXCURSION: 10.065 mm (> 18.000) MV EF SLOPE: 29 mm/s (70 - 150) EPSS: 1.4 cm AV maxP.43 mmHg AV meanP.70 mmHg AR PHT: 652 ms RAP: 5.00 mmHg RVSP: 40.30 mmHg FINDINGS -------- Sinus rhythm with extra systolic beats. This was a technically adequate study. The left ventricular size is normal. There is mild concentric left ventricular hypertrophy. Overa ll left ventricular systolic function is low-normal with, an EF between 50 - 55 %. The right ventricle is normal in size. The left atrium is mildly dilated. The right atrium is normal in size. There is mild to moderate aortic valve sclerosis. There is mild aortic regurgitation. There is mo derate aortic stenosis present. Peak/mean gradient across the Aortic Valve is 65.43mmHg / 38.70mmHg . Mild mitral annular calcification present. Mild mitral regurgitation is present. Mild tricuspid regurgitation present. There is mild pulmonary hypertension. The right ventricular systolic pressure, as measured by Doppler, is 40.30mmHg. Trace/mild (physiologic) pulmonic regurgitation. The aortic root size is normal. Normal inferior vena cava with normal inspiratory collapse consistent with estimated right atrial pre ssure of 5 mmHg. There is no pericardial effusion. CONCLUSIONS -------- 1. Sinus rhythm with extra systolic beats. 2. This was a technically adequate study. 3. The left ventricular size is normal. 4. There is mild concentric left ventricular hypertrophy. 5. Overall left ventricular systolic function is low-normal with, an EF between 50 - 55 %. 6. The right ventricle is normal in size. 7. The left atrium is mildly dilated. 8. The right atrium is normal in size. 9. There is mild to moderate aortic valve sclerosis. 10. There is mild aortic regurgitation. 11. There is moderate aortic stenosis present. 12. Peak/mean gradient across the Aortic Valve is 65.43mmHg / 38.70mmHg. 13. Mild mitral annular calcification present. 14. Mild mitral regurgitation is present. 15. Mild tricuspid regurgitation present. 16. There is mild pulmonary hypertension. 17. The right ventricular systolic pressure, as measured by Doppler, is 40.30mmHg. 18. Trace/mild (physiologic) pulmonic regurgitation. 19. The aortic root size is normal. 20. Normal inferior vena cava with normal inspiratory collapse consistent with estimated right atrial pressure of 5 mmHg. 21. There is no pericardial effusion. GUEST EXPERIENCE CAPTAIN: Tracee Sotomayor RDCS
[2018-04-15] MEDS: INSULIN ASPART 100 UNIT/ML 1 ML 10 ML VIAL SQ SCH ×4 (07:51→21:43)
[2018-04-15] MEDS: METOPROLOL TARTRATE 12.5 MG TAB PO SCH ×2 (08:43→09:52)
[2018-04-15] MEDS: FUROSEMIDE 20 MG TAB PO SCH ×2 (08:43→09:52)
[2018-04-15] MEDS: metFORMIN 500 MG TAB PO SCH ×2 (08:43→16:44)
[2018-04-15] MEDS ORDERED: LOSARTAN 50 MG TAB PO SCH (11:30)
[2018-04-15 11:48] LABS: Albumin 3.13 g/dL (3.80-4.90)
[2018-04-15] MEDS ORDERED: cloNIDine HCL 0.2 MG TAB PO SCH (12:30)
--- NOTE | 2018-04-15 12:32 | P.PN ---
Subjective This is a pleasant 87-year-old female past medical history significant for aortic stenosis, diabetes mellitus, hypertension, dyslipidemia, dementia and gastroesophageal reflux disease. Patient necessary consultation for PVCs noted on telemetry. She follows with Dr. Pearson in the office. She is somewhat confused at the time of my exam and unable to answer questions pertaining to the history of present illness. Unable to get in touch with family most information is obtained from the medical record. She was brought to the hospital yesterday afternoon after falling out of bed. She complained of pain to the right hip and back. She was brought to the hospital family states that she seemed more confused than normal. She was febrile with a temperature 100.3F, blood pressure 203/88, 222/88. She was given IV hydralazine upon admission and started on amlodipine 5 mg daily. Repeat blood pressure this morning 129/68. Imaging of her hip and pelvis is negative for acute fracture or dislocation. At the time of my exam she is seen sitting up in bed comfortably in no acute distress. She denies feeling any symptoms of chest pain, shortness of breath, dizziness, nausea, palpitations or diaphoresis. She recalls that she did fall out of bed last night but does not recall having any symptoms prior to falling or thereafter. This far as she can recall she slipped and fell. EKG on admission reveals right bundle branch block pattern with first-degree AV block, no acute ST or T wave abnormalities noted. Repeat EKG was obtained in the night which revealed premature ventricular contractions. Chest x-ray reveals mild pulmonary fibrosis with no acute cardiopulmonary process noted. 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 Home medications include Lasix 20 mg daily, loratadine and metformin. 04/16/2018 Pt is seen and examined resting comfortably in bed in no acute distress. Echocardiogram obtained reveals preserved left ventricular systolic function with low-normal EF 50-55%, mild aortic regurgitation with mean gradient across the valve 38.70 mmHg, mild MR, mild TR and mild pulmonary hypertension with an RVSP of 40.3 mmHg. Blood pressure has remained elevated 196/71 heart rate 70 afebrile maintaining oxygen saturation on room air. At the time of my exam the patient is presently confused and aggressive. She denies symptoms of chest pain , shortness of breath, dizziness, nausea, vomiting or diaphoresis. Objective - Vital Signs Vital signs: Vital Signs Temp 98.8 F 04/15/18 09:54 Pulse 70 04/15/18 09:54 Resp 18 04/15/18 09:54 BP 196/71 04/15/18 09:54 Pulse Ox 95 04/15/18 09:54 Intake & Output 04/14/18 04/15/18 04/15/18 18:59 06:59 18:59 Intake Total 680 Balance 680 Weight 81.647 kg Intake: Oral 680 Other: Voiding Method Bedpan # Voids 1 2 - Exam GENERAL: Well-appearing, well-nourished and in no acute distress. NECK: Supple with mild less than 1 cm of JVD or thyromegaly. LUNGS: Breath sounds clear to auscultation bilaterally. Respiration equal and unlabored. No wheezes, rales or rhonchi. HEART: Regular rate and rhythm with systolic ejection murmur at the base, no rubs or gallops. S1 and S2 heard. EXTREMITIES: Normal range of motion, no edema. No clubbing or cyanosis. Peripheral pulses intact. - Labs CBC & Chem 7: 04/14/18 10:20 04/14/18 10:20 Labs: Abnormal Lab Results - Last 24 Hours (Table) 04/14/18 04/14/18 04/14/18 Range/Units 10:20 10:20 10:20 RBC 3.65 L (3.80-5.40) m/uL Hgb 11.2 L (11.4-16.0) gm/dL Hct 33.8 L (34.0-46.0) % Plt Count 34 L* (150-450) k/uL ESR 25 H (0-20) mm/hr POC Glucose (mg/dL) (75-99) mg/dL Total Protein (PEP) 5.9 L (6.2-8.2) g/dL Rheumatoid Factor 17 H (0-15) IU/mL 04/14/18 04/14/18 Range/Units 17:57 21:10 RBC (3.80-5.40) m/uL Hgb (11.4-16.0) gm/dL Hct (34.0-46.0) % Plt Count (150-450) k/uL ESR (0-20) mm/hr POC Glucose (mg/dL) 121 H 155 H (75-99) mg/dL Total Protein (PEP) (6.2-8.2) g/dL Rheumatoid Factor (0-15) IU/mL Microbiology - Last 24 Hours (Table) 04/13/18 15:54 Urine Culture - Preliminary Urine,Catheterized Group D Enterococcus 04/13/18 15:54 Blood Culture - Preliminary Blood No Growth after 24 hours Assessment and Plan Assessment: ASSESSMENT 1. Fall of unclear etiology with no acute injury noted. 2. Nonrheumatic aortic stenosis, chronic 3. Nonrheumatic mitral insufficiency, chronic 4. Hypertensive emergency 5. Dyslipidemia 6. Diabetes mellitus 7. Memory impairment, chronic 8. Thrombocytopenia PLAN Increase amlodipine to 5 mg BID, give additional dose now. Add clonidine 0.2 mg daily. Continue to monitor blood pressures. Encouraged pt to be take her pills from nursing staff for blood pressure. Nurse Practitioner note has been reviewed, I agree with a documented findings and plan of care. Patient was seen and examined.
[2018-04-15] MEDS: amLODIPine 5 MG TAB PO SCH ×2 (12:49→21:42)
--- NOTE | 2018-04-15 14:41 | P.PN ---
Subjective 85-year-old the female admitted after fall patient does have advanced dementia maybe dementia of Alzheimer's type. Patient has uncontrolled blood pressures metoprolol will be switched to Coreg for better blood pressure control probably Lasix is not really appropriate patient appears to be clinically dehydrated since her uncontrolled blood pressure and good and continue Lasix as a diuretic for blood pressure control. Amlodipine will be continued. Considering her advanced dementia I do not believe clonidine is appropriate choice that will be discontinued, patient is only getting once a day clonidine. Patient is awaiting disposition to subacute rehab patient is admitted for with hip pain without any fracture. Discussed at length regarding her prognosis patient has poor prognosis considering her fall with her dementia. Patient is being evaluated for isolated thrombocytopenia patient does not have any clinical bleed or bruising at this time. Patient is being evaluated for heparin-induced thrombocytopenia, ITP all the testing is so far negative area patient does have aortic stenosis probably not a candidate for a clinic and if intervention considering her advanced dementia. Patient is confused and unable to get any review of systems Objective - Vital Signs Vital signs: Vital Signs Temp 98.7 F 04/15/18 14:15 Pulse 55 L 04/15/18 14:15 Resp 15 04/15/18 14:15 BP 128/77 04/15/18 14:15 Pulse Ox 95 04/15/18 14:15 Intake & Output 04/14/18 04/15/18 04/15/18 18:59 06:59 18:59 Intake Total 680 Balance 680 Weight 81.647 kg Intake: Oral 680 Other: Voiding Method Bedpan # Voids 1 2 3 - Exam PHYSICAL EXAMINATION: GENERAL: The patient is alert and oriented x1, not in any acute distress. Well developed, well nourished. HEENT: Pupils are round and equally reacting to light. EOMI. No scleral icterus. No conjunctival pallor. Normocephalic, atraumatic. No pharyngeal erythema. No thyromegaly. CARDIOVASCULAR: S1 and S2 present. No , rubs, or gallops. Systolic murmur in the aortic area. PULMONARY: Chest is clear to auscultation, no wheezing or crackles. ABDOMEN: Soft, nontender, nondistended, normoactive bowel sounds. No palpable organomegaly. MUSCULOSKELETAL: No joint swelling or deformity. EXTREMITIES: No cyanosis, clubbing, or pedal edema. NEUROLOGICAL: Gross neurological examination did not reveal any focal deficits. SKIN: No rashes. - Labs CBC & Chem 7: 04/14/18 10:20 04/14/18 10:20 Labs: Abnormal Lab Results - Last 24 Hours (Table) 04/14/18 04/14/18 04/14/18 Range/Units 10:20 10:20 17:57 ESR 25 H (0-20) mm/hr POC Glucose (mg/dL) 121 H (75-99) mg/dL Total Protein (PEP) 5.9 L (6.2-8.2) g/dL Albumin (PEP) 3.13 L (3.80-4.90) g/dL Rheumatoid Factor 17 H (0-15) IU/mL Free [place] LC, Quant 2.01 H (0.33-1.94) mg/dL 04/14/18 Range/Units 21:10 ESR (0-20) mm/hr POC Glucose (mg/dL) 155 H (75-99) mg/dL Total Protein (PEP) (6.2-8.2) g/dL Albumin (PEP) (3.80-4.90) g/dL Rheumatoid Factor (0-15) IU/mL Free [place] LC, Quant (0.33-1.94) mg/dL Microbiology - Last 24 Hours (Table) 04/13/18 15:54 Urine Culture - Preliminary Urine,Catheterized Group D Enterococcus 04/13/18 15:54 Blood Culture - Preliminary Blood No Growth after 24 hours Assessment and Plan Plan: -Fall secondary her to her advanced dementia and generalized weakness will need subacute rehabilitation. -Uncontrolled blood pressure further management as mentioned above -Aortic stenosis -Hyperlipidemia -Type 2 diabetes mellitus -Isolated thrombocytopenia undergoing further evaluation all the workup including B12, para proteins are all negative. 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
[2018-04-15 16:32] LABS: Glucose,Whole Blood 139 mg/dL (75-99)
[2018-04-15] MEDS: CARVEDILOL 3.125 MG TAB PO SCH (16:45)
[2018-04-15 20:26] LABS: Glucose,Whole Blood 128 mg/dL (75-99)
[2018-04-16 07:20] LABS: Glucose,Whole Blood 110 mg/dL (75-99)
[2018-04-16 07:53] LABS: Basophils % (A) 1 %; Eosinophils # (A) 0.3 k/uL (0-0.7); Eosinophils % (A) 7 %; HCT 32.9 % (34.0-46.0); HGB 10.9 gm/dL (11.4-16.0); Lymphocytes # (A) 1.3 k/uL (1.0-4.8); Lymphocytes % (A) 29 %; MCHC 33.2 g/dL (31.0-37.0); MCV 90.5 fL (80.0-100.0); Mean Platelet Volume 9.4; Monocytes # (A) 0.3 k/uL (0-1.0); Monocytes % (A) 7 %; Neutrophils # (A) 2.4 k/uL (1.3-7.7); Neutrophils % (A) 54 %; RBC 3.64 m/uL (3.80-5.40); RDW 14.2 % (11.5-15.5); WBC 4.4 k/uL (3.8-10.6)
--- NOTE | 2018-04-16 07:54 | P.PN ---
Subjective This is a pleasant 87-year-old female past medical history significant for aortic stenosis, diabetes mellitus, hypertension, dyslipidemia, dementia and gastroesophageal reflux disease. Patient necessary consultation for PVCs noted on telemetry. She follows with Dr. Pearson in the office. She is somewhat confused at the time of my exam and unable to answer questions pertaining to the history of present illness. Unable to get in touch with family most information is obtained from the medical record. She was brought to the hospital yesterday afternoon after falling out of bed. She complained of pain to the right hip and back. She was brought to the hospital family states that she seemed more confused than normal. She was febrile with a temperature 100.3F, blood pressure 203/88, 222/88. She was given IV hydralazine upon admission and started on amlodipine 5 mg daily. Repeat blood pressure this morning 129/68. Imaging of her hip and pelvis is negative for acute fracture or dislocation. At the time of my exam she is seen sitting up in bed comfortably in no acute distress. She denies feeling any symptoms of chest pain, shortness of breath, dizziness, nausea, palpitations or diaphoresis. She recalls that she did fall out of bed last night but does not recall having any symptoms prior to falling or thereafter. This far as she can recall she slipped and fell. EKG on admission reveals right bundle branch block pattern with first-degree AV block, no acute ST or T wave abnormalities noted. Repeat EKG was obtained in the night which revealed premature ventricular contractions. Chest x-ray reveals mild pulmonary fibrosis with no acute cardiopulmonary process noted. 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 Home medications include Lasix 20 mg daily, loratadine and metformin. 04/15/2018 Pt is seen and examined resting comfortably in bed in no acute distress. Echocardiogram obtained reveals preserved left ventricular systolic function with low-normal EF 50-55%, mild aortic regurgitation with mean gradient across the valve 38.70 mmHg, mild MR, mild TR and mild pulmonary hypertension with an RVSP of 40.3 mmHg. Blood pressure has remained elevated 196/71 heart rate 70 afebrile maintaining oxygen saturation on room air. At the time of my exam the patient is presently confused and aggressive. She denies symptoms of chest pain , shortness of breath, dizziness, nausea, vomiting or diaphoresis. 04/16/2018 Patient seen and examined resting comfortably in bed. She continues with ongoing confusion. She is complaining of some neck discomfort that is reproducible on palpation. Blood pressure 113/66 heart rate 62 afebrile maintaining oxygen saturation on room air. Objective - Vital Signs Vital signs: Vital Signs Temp 98.0 F 04/16/18 06:19 Pulse 62 04/16/18 06:19 Resp 16 04/16/18 06:19 BP 113/66 04/16/18 06:19 Pulse Ox 98 04/16/18 06:19 Intake & Output 04/15/18 04/16/18 04/16/18 18:59 06:59 18:59 Other: # Voids 2 1 - Exam GENERAL: Well-appearing, well-nourished and in no acute distress. NECK: Supple with mild less than 1 cm of JVD or thyromegaly. LUNGS: Breath sounds clear to auscultation bilaterally. Respiration equal and unlabored. No wheezes, rales or rhonchi. HEART: Regular rate and rhythm with systolic ejection murmur at the base, no rubs or gallops. S1 and S2 heard. EXTREMITIES: Normal range of motion, no edema. No clubbing or cyanosis. Peripheral pulses intact. - Labs CBC & Chem 7: 04/14/18 10:20 04/14/18 10:20 Labs: Abnormal Lab Results - Last 24 Hours (Table) 04/14/18 04/15/18 04/15/18 Range/Units 10:20 16:31 20:24 POC Glucose (mg/dL) 139 H 128 H (75-99) mg/dL Albumin (PEP) 3.13 L (3.80-4.90) g/dL Free [place] LC, Quant 2.01 H (0.33-1.94) mg/dL 04/16/18 Range/Units 07:18 POC Glucose (mg/dL) 110 H (75-99) mg/dL Albumin (PEP) (3.80-4.90) g/dL Free [place] LC, Quant (0.33-1.94) mg/dL Microbiology - Last 24 Hours (Table) 04/13/18 15:54 Urine Culture - Final Urine,Catheterized Enterococcus faecalis 04/13/18 15:54 Blood Culture - Preliminary Blood No Growth after 48 hours Assessment and Plan Assessment: ASSESSMENT 1. Fall of unclear etiology with no acute injury noted. 2. Nonrheumatic aortic stenosis, chronic 3. Nonrheumatic mitral insufficiency, chronic 4. Hypertensive emergency 5. Dyslipidemia 6. Diabetes mellitus 7. Memory impairment, chronic 8. Thrombocytopenia PLAN Stable from a cardiac perspective for discharge. Follow-up with Dr. Pearson at already scheduled appointment. Nurse Practitioner note has been reviewed, I agree with a documented findings and plan of care. Patient was seen and examined.
[2018-04-16] MEDS: INSULIN ASPART 100 UNIT/ML 1 ML 10 ML VIAL SQ SCH ×4 (07:56→23:23)
[2018-04-16] MEDS: amLODIPine 5 MG TAB PO SCH (07:58)
[2018-04-16] MEDS: CARVEDILOL 3.125 MG TAB PO SCH ×2 (07:58→18:07)
[2018-04-16] MEDS: FUROSEMIDE 20 MG TAB PO SCH (07:58)
[2018-04-16] MEDS: metFORMIN 500 MG TAB PO SCH ×2 (07:58→18:07)
[2018-04-16 08:13] LABS: Platelet Count 31 k/uL (150-450)
[2018-04-16 08:14] LABS: Calcium 8.7 mg/dL (8.4-10.2)
[2018-04-16 12:19] LABS: Glucose,Whole Blood 108 mg/dL (75-99)
[2018-04-16] MEDS ORDERED: WITCH HAZEL 1 EACH MED..PAD TOPICAL PRN (14:32)
--- NOTE | 2018-04-16 14:49 | P.PN ---
Subjective 85-year-old the female admitted after fall patient does have advanced dementia maybe dementia of Alzheimer's type. Patient has uncontrolled blood pressures metoprolol will be switched to Coreg for better blood pressure control probably Lasix is not really appropriate patient appears to be clinically dehydrated since her uncontrolled blood pressure and good and continue Lasix as a diuretic for blood pressure control. Amlodipine will be continued. Considering her advanced dementia I do not believe clonidine is appropriate choice that will be discontinued, patient is only getting once a day clonidine. Patient is awaiting disposition to subacute rehab patient is admitted for with hip pain without any fracture. Discussed at length regarding her prognosis patient has poor prognosis considering her fall with her dementia. Patient is being evaluated for isolated thrombocytopenia patient does not have any clinical bleed or bruising at this time. Patient is being evaluated for heparin-induced thrombocytopenia, ITP all the testing is so far negative area patient does have aortic stenosis probably not a candidate for a clinic and if intervention considering her advanced dementia. 04/16/2018 Patient blood pressure is doing well patient will be continued on the same regimen will cut down the amlodipine to 5 mg daily from twice a day as her blood pressure is on the low normal side considering her age and advanced dementia it's probably in not a good idea to strictly control her blood pressure which can lead to falls. Patient is confused and unable to get any review of systems Objective - Vital Signs Vital signs: Vital Signs Temp 98.0 F 04/16/18 06:19 Pulse 62 04/16/18 06:19 Resp 16 04/16/18 06:19 BP 113/66 04/16/18 06:19 Pulse Ox 98 04/16/18 06:19 Intake & Output 04/15/18 04/16/18 04/16/18 18:59 06:59 18:59 Intake Total 120 Balance 120 Intake: Oral 120 Other: # Voids 2 1 - Exam PHYSICAL EXAMINATION: GENERAL: The patient is alert and oriented x1, not in any acute distress. Well developed, well nourished. HEENT: Pupils are round and equally reacting to light. EOMI. No scleral icterus. No conjunctival pallor. Normocephalic, atraumatic. No pharyngeal erythema. No thyromegaly. CARDIOVASCULAR: S1 and S2 present. No , rubs, or gallops. Systolic murmur in the aortic area. PULMONARY: Chest is clear to auscultation, no wheezing or crackles. ABDOMEN: Soft, nontender, nondistended, normoactive bowel sounds. No palpable organomegaly. MUSCULOSKELETAL: No joint swelling or deformity. EXTREMITIES: No cyanosis, clubbing, or pedal edema. NEUROLOGICAL: Gross neurological examination did not reveal any focal deficits. SKIN: No rashes. - Labs CBC & Chem 7: 04/16/18 07:27 04/16/18 07:27 Labs: Abnormal Lab Results - Last 24 Hours (Table) 04/14/18 04/15/18 04/15/18 Range/Units 10:20 16:31 20:24 RBC (3.80-5.40) m/uL Hgb (11.4-16.0) gm/dL Hct (34.0-46.0) % Plt Count (150-450) k/uL Sodium (137-145) mmol/L BUN (7-17) mg/dL Glucose (74-99) mg/dL POC Glucose (mg/dL) 139 H 128 H (75-99) mg/dL RBC Folate 828 H (280 - 791) ng/mL 04/16/18 04/16/18 04/16/18 Range/Units 07:18 07:27 07:27 RBC 3.64 L (3.80-5.40) m/uL Hgb 10.9 L (11.4-16.0) gm/dL Hct 32.9 L (34.0-46.0) % Plt Count 31 L* (150-450) k/uL Sodium 136 L (137-145) mmol/L BUN 26 H (7-17) mg/dL Glucose 109 H (74-99) mg/dL POC Glucose (mg/dL) 110 H (75-99) mg/dL RBC Folate (280 - 791) ng/mL 04/16/18 Range/Units 12:18 RBC (3.80-5.40) m/uL Hgb (11.4-16.0) gm/dL Hct (34.0-46.0) % Plt Count (150-450) k/uL Sodium (137-145) mmol/L BUN (7-17) mg/dL Glucose (74-99) mg/dL POC Glucose (mg/dL) 108 H (75-99) mg/dL RBC Folate (280 - 791) ng/mL Microbiology - Last 24 Hours (Table) 04/13/18 15:54 Urine Culture - Final Urine,Catheterized Enterococcus faecalis 04/13/18 15:54 Blood Culture - Preliminary Blood No Growth after 48 hours Assessment and Plan Plan: -Fall secondary her to her advanced dementia and generalized weakness will need subacute rehabilitation. Patient is awaiting to go to subacute rehab -Uncontrolled blood pressure further management as mentioned above -Aortic stenosis, not a candidate for any intervention considering her advanced dementia and extremity poor prognosis -Hyperlipidemia -Type 2 diabetes mellitus -Isolated thrombocytopenia undergoing further evaluation all the workup including B12, para proteins are all negative. 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
--- NOTE | 2018-04-16 16:50 | P.PN ---
Subjective Progress Note Date: 04/16/18 The patient remains pleasantly confused. Per my discussion with nursing, there has been no obvious bleeding. No fever/chills/nausea or vomiting. Objective - Vital Signs Vital signs: Vital Signs Temp 97.1 F L 04/16/18 15:37 Pulse 56 L 04/16/18 15:37 Resp 16 04/16/18 15:37 BP 145/66 04/16/18 15:37 Pulse Ox 97 04/16/18 15:37 Intake & Output 04/15/18 04/16/18 04/16/18 18:59 06:59 18:59 Intake Total 360 Balance 360 Intake: Oral 360 Other: # Voids 2 1 1 # Bowel Movements 1 - Constitutional General appearance: Present: no acute distress - EENT Eyes: Present: EOMI ENT: Present: hearing grossly normal, normal oropharynx - Respiratory Respiratory: bilateral: CTA - Cardiovascular Rhythm: regular Heart sounds: normal: S1, S2 - Gastrointestinal General gastrointestinal: Present: normal bowel sounds, soft - Integumentary Integumentary Comment(s): Scattered bruises on her upper extremities. - Neurologic Neurologic: Present: CNII-XII intact - Psychiatric Psychiatric Comment(s): Confused - Labs CBC & Chem 7: 04/16/18 07:27 04/16/18 07:27 Labs: Abnormal Lab Results - Last 24 Hours (Table) 04/14/18 04/15/18 04/16/18 Range/Units 10:20 20:24 07:18 RBC (3.80-5.40) m/uL Hgb (11.4-16.0) gm/dL Hct (34.0-46.0) % Plt Count (150-450) k/uL Sodium (137-145) mmol/L BUN (7-17) mg/dL Glucose (74-99) mg/dL POC Glucose (mg/dL) 128 H 110 H (75-99) mg/dL RBC Folate 828 H (280 - 791) ng/mL 04/16/18 04/16/18 04/16/18 Range/Units 07:27 07:27 12:18 RBC 3.64 L (3.80-5.40) m/uL Hgb 10.9 L (11.4-16.0) gm/dL Hct 32.9 L (34.0-46.0) % Plt Count 31 L* (150-450) k/uL Sodium 136 L (137-145) mmol/L BUN 26 H (7-17) mg/dL Glucose 109 H (74-99) mg/dL POC Glucose (mg/dL) 108 H (75-99) mg/dL RBC Folate (280 - 791) ng/mL Microbiology - Last 24 Hours (Table) 04/13/18 15:54 Urine Culture - Final Urine,Catheterized Enterococcus faecalis 04/13/18 15:54 Blood Culture - Preliminary Blood No Growth after 48 hours Assessment and Plan (1) Thrombocytopenia Narrative/Plan: Lab workup, including testing for HIT has been negative so far. Platelets are remaining stable in the low 30,000 range with no evidence of any progressive bleeding. 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 I will give her a trial of steroid and IVIG. If this results in improvement in her platelet count, that would confirm the clinical impression. Current Visit: Yes Status: Acute Code(s): D69.6 - THROMBOCYTOPENIA, UNSPECIFIED SNOMED Code(s): 267249311 Plan: Defer to the admitting service for management of her multiple other medical problems
[2018-04-16] MEDS ORDERED: IMMUNE GLOBULIN (HUMAN-IGG) 1 GM/10 ML VIAL IV SCH (17:00)
[2018-04-16 17:48] LABS: Glucose,Whole Blood 139 mg/dL (75-99)
[2018-04-16] MEDS ORDERED: IMMUNE GLOBULIN (HUMAN-IGG) 20 GM in EMPTY BAG 1 BAG IV NR ×2 (18:00→20:00)
[2018-04-16] MEDS: predniSONE 20 MG TAB PO SCH (18:07)
[2018-04-16] MEDS: ACETAMINOPHEN TAB 325 MG TAB PO PRN (19:56)
[2018-04-16] MEDS ORDERED: IMMUNE GLOBULIN (HUMAN-IGG) 10 GM in EMPTY BAG 1 BAG IV NR (20:00)
[2018-04-16 22:53] LABS: Glucose,Whole Blood 207 mg/dL (75-99)
[2018-04-17 07:28] LABS: Glucose,Whole Blood 214 mg/dL (75-99)
[2018-04-17] MEDS: metFORMIN 500 MG TAB PO SCH ×2 (09:06→18:15)
[2018-04-17] MEDS: INSULIN ASPART 100 UNIT/ML 1 ML 10 ML VIAL SQ SCH ×4 (09:06→22:10)
[2018-04-17] MEDS: amLODIPine 5 MG TAB PO SCH (09:07)
[2018-04-17] MEDS: CARVEDILOL 3.125 MG TAB PO SCH ×2 (09:07→18:16)
[2018-04-17] MEDS: FUROSEMIDE 20 MG TAB PO SCH (09:07)
[2018-04-17] MEDS: predniSONE 20 MG TAB PO SCH (09:07)
[2018-04-17 11:25] LABS: Basophils % (A) 0 %; Eosinophils % (A) 0 %; HCT 34.5 % (34.0-46.0); HGB 11.5 gm/dL (11.4-16.0); Lymphocytes # (A) 0.6 k/uL (1.0-4.8); Lymphocytes % (A) 18 %; MCH 29.8 pg (25.0-35.0); MCHC 33.2 g/dL (31.0-37.0); MCV 89.8 fL (80.0-100.0); Mean Platelet Volume 8.4; Monocytes # (A) 0.1 k/uL (0-1.0); Monocytes % (A) 3 %; Neutrophils # (A) 2.8 k/uL (1.3-7.7); Neutrophils % (A) 78 %; RBC 3.85 m/uL (3.80-5.40); RDW 13.9 % (11.5-15.5); WBC 3.5 k/uL (3.8-10.6)
[2018-04-17 11:31] LABS: Platelet Count 49 k/uL (150-450)
[2018-04-17 11:42] LABS: Calcium 9.2 mg/dL (8.4-10.2); Potassium 4.4 mmol/L (3.5-5.1)
[2018-04-17 12:03] LABS: Glucose,Whole Blood 141 mg/dL (75-99)
[2018-04-17 17:07] LABS: Glucose,Whole Blood 245 mg/dL (75-99)
[2018-04-17] MEDS ORDERED: IMMUNE GLOBULIN (HUMAN-IGG) 20 GM in EMPTY BAG 1 BAG IV NR (18:00)
[2018-04-17] MEDS: PANTOPRAZOLE 40 MG TABLET PO SCH (18:15)
--- NOTE | 2018-04-17 19:14 | PN ---
PROGRESS NOTE DATE OF SERVICE: 04/17/2018 PRESENTING COMPLAINT: Weak and tired. INTERVAL HISTORY: This patient presented with fall felt to be from medical debility, decreased oral intake. The patient's daughter is at bedside, who is the POA. The patient as a baseline was using a little bit a walker, but had become extremely weak and tired. The patient's blood pressure medications were adjusted. The patient did eat some breakfast today. Per Physical Therapy, patient is being a total assist, probably going to the rehab. REVIEW OF SYSTEMS: Done for constitutional, cardiovascular, GI, pulmonary; relevant findings as above. CURRENT MEDICATIONS: Reviewed that include: 1. Norvasc. 2. Coreg. 3. IV immunoglobulin. EXAMINATION: Temperature 96.5, pulse 63, respirations 16, blood pressure 146/63, pulse ox 94% on room air room. GENERAL APPEARANCE: Sitting up in bed, awake. EYES: Pupils equal. Conjunctivae normal. HEENT: External nose and ears normal. Oral cavity normal. NECK: JVD not raised. Mass not palpable. RESPIRATORY: Effort normal. LUNGS: Slightly decreased breath sounds. CARDIOVASCULAR: First and second sounds normal. No edema. ABDOMEN: Soft, nontender. Liver, spleen not palpable. PSYCHIATRY: The patient is able to carry out a simple conversation, otherwise rather forgetful; for example, she does not remember at all that she had breakfast until the daughter prompted her. INVESTIGATIONS: White count 3.5, hemoglobin 11.5, platelets 49. Potassium 4.4. ASSESSMENT: 1. Falls due to medical debility. 2. 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 3. Moderate cognitive impairment from underlying Alzheimer dementia. 4. Significant medical debility. Patient is a total assist. 5. Diabetes mellitus type 2 on oral hypoglycemic. 6. Essential hypertension. 7. Moderate aortic stenosis, nonrheumatic. 8. 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 The patient's platelets still at 49. PLAN: Care was discussed at length with the patient's daughter at the bedside. From a blood pressures standpoint, will replace patient's Lasix with chlorthalidone and also will discontinue patient's Claritin. The patient's blood pressure is better controlled on the current medications. Follow CBC. MMODL / IJN: [id number] /
[2018-04-17] MEDS ORDERED: IMMUNE GLOBULIN (HUMAN-IGG) 10 GM in EMPTY BAG 1 BAG IV NR (20:00)
[2018-04-17 20:57] LABS: Glucose,Whole Blood 187 mg/dL (75-99)
[2018-04-18] MEDS: ACETAMINOPHEN TAB 325 MG TAB PO PRN (03:12)
[2018-04-18 08:03] LABS: Glucose,Whole Blood 128 mg/dL (75-99)
[2018-04-18] MEDS: INSULIN ASPART 100 UNIT/ML 1 ML 10 ML VIAL SQ SCH ×4 (08:05→21:06)
[2018-04-18] MEDS: amLODIPine 5 MG TAB PO SCH (08:48)
[2018-04-18] MEDS: CHLORTHALIDONE 25 MG TAB PO SCH (08:48)
[2018-04-18] MEDS: PANTOPRAZOLE 40 MG TABLET PO SCH ×2 (08:48→18:22)
[2018-04-18] MEDS: predniSONE 20 MG TAB PO SCH (08:48)
[2018-04-18] MEDS: CARVEDILOL 3.125 MG TAB PO SCH ×2 (08:48→18:22)
[2018-04-18] MEDS: metFORMIN 500 MG TAB PO SCH ×2 (08:49→18:22)
[2018-04-18 09:38] LABS: Basophils % (A) 0 %; Eosinophils # (A) 0.1 k/uL (0-0.7); Eosinophils % (A) 1 %; HCT 36.3 % (34.0-46.0); HGB 11.9 gm/dL (11.4-16.0); Lymphocytes # (A) 1.6 k/uL (1.0-4.8); Lymphocytes % (A) 20 %; MCH 30.7 pg (25.0-35.0); MCHC 32.7 g/dL (31.0-37.0); MCV 93.6 fL (80.0-100.0); Mean Platelet Volume 7.5; Monocytes # (A) 0.7 k/uL (0-1.0); Monocytes % (A) 8 %; Neutrophils # (A) 5.4 k/uL (1.3-7.7); Neutrophils % (A) 69 %; RBC 3.88 m/uL (3.80-5.40); RDW 13.8 % (11.5-15.5); WBC 7.9 k/uL (3.8-10.6)
[2018-04-18 09:45] LABS: Potassium 4.8 mmol/L (3.5-5.1)
[2018-04-18 10:50] LABS: Platelet Count 123 k/uL (150-450); Poikilocytosis (M) Present
[2018-04-18 12:27] LABS: Glucose,Whole Blood 129 mg/dL (75-99)
--- NOTE | 2018-04-18 15:56 | P.PN ---
Subjective Progress Note Date: 04/18/18 Principal diagnosis: Thrombocytopenia 04/18/18 - Patient is pleasantly confused in bed today. No signs of bleeding, Platlets have recovered Objective - Vital Signs Vital signs: Vital Signs Temp 97.2 F L 04/18/18 06:00 Pulse 60 04/18/18 06:00 Resp 20 04/18/18 06:00 BP 155/86 04/18/18 06:00 Pulse Ox 98 04/18/18 06:00 Intake & Output 04/17/18 04/18/18 04/18/18 18:59 06:59 18:59 Intake Total 750 Balance 750 Intake: Oral 750 Other: # Voids 3 2 - Constitutional General appearance: Present: average body habitus, no acute distress - EENT Eyes: Present: EOMI, PERRLA, dentition normal ENT: Present: hard of hearing, NA/AT, normal oropharynx - Neck Details: supple, trachea midline Neck: Present: normal ROM - Respiratory Respiratory: bilateral: CTA (No Increased Respiratory Effort) - Cardiovascular Rhythm: regular Heart sounds: normal: S1, S2 - Gastrointestinal General gastrointestinal: Present: normal bowel sounds, soft - Integumentary Integumentary: Present: pale - Neurologic Neurologic Comment(s): No focal Deficits Neurologic: Present: CNII-XII intact - Musculoskeletal Musculoskeletal: Present: generalized weakness, strength equal bilaterally - Psychiatric Psychiatric Comment(s): Pleasantly Confused and aware of person and place - Labs CBC & Chem 7: 04/18/18 09:03 04/18/18 09:03 Labs: Abnormal Lab Results - Last 24 Hours (Table) 04/17/18 04/17/18 04/18/18 Range/Units 17:01 20:47 07:47 Plt Count (150-450) k/uL Sodium (137-145) mmol/L BUN (7-17) mg/dL Glucose (74-99) mg/dL POC Glucose (mg/dL) 245 H 187 H 128 H (75-99) mg/dL 04/18/18 04/18/18 04/18/18 Range/Units 09:03 09:03 12:06 Plt Count 123 L D (150-450) k/uL Sodium 134 L (137-145) mmol/L BUN 42 H (7-17) mg/dL Glucose 179 H (74-99) mg/dL POC Glucose (mg/dL) 129 H (75-99) mg/dL Microbiology - Last 24 Hours (Table) 04/13/18 15:54 Blood Culture - Preliminary Blood No Growth after 96 hours Assessment and Plan Plan: Assessment and Plan (1) Thrombocytopenia Narrative/Plan: - Lab workup, including testing for HIT has been negative so far. Platelets are remaining stable in the low 30,000 range with no evidence of any progressive bleeding. 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 She is status post trial of steroid and IVIG. 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 - We will plan to follow-up in office, we can start a long steroid wean on her today and discharge. Start Prednisone at 40mg po daily while under the care of ECF, please prescribe PPI with Steroid at discharge. Physician Attestation: I have completed the full history and physical of this patient and agree with above dictation by Hannah Arellano NP. Dictated as a scribe.
[2018-04-18 18:07] LABS: Glucose,Whole Blood 183 mg/dL (75-99)
[2018-04-18 20:38] LABS: Glucose,Whole Blood 149 mg/dL (75-99)
--- NOTE | 2018-04-18 21:31 | PN ---
PROGRESS NOTE DATE OF SERVICE: 04/18/18. PRESENTING COMPLAINT: Tired. INTERVAL HISTORY: This is a patient presented with falls from medical debility, also received IV immunoglobulin and high-dose steroids for ITP. The patient's platelets have come up. The patient's granddaughter is at the bedside. The patient is awaiting to go to the [facility] now. Did tolerate a diet comfortable. REVIEW OF SYSTEMS: Done for constitutional, cardiovascular, GI, pulmonary; relevant findings as above. CURRENT MEDICATIONS: Reviewed that include prednisone 40 mg. PHYSICAL EXAMINATION: Temperature 97.3, pulse 77, respiratory 18, blood pressure 149/79, pulse ox 97% on room air. GENERAL APPEARANCE: Sitting up, comfortable. EYES: Pupils equal. Conjunctivae normal. HEENT: External appearance of nose and ears are normal. Oral cavity normal. NECK: JVD not raised. Mass not palpable. RESPIRATORY: Effort, lungs decreased breath sounds. CARDIOVASCULAR: First and second sounds, no edema. ABDOMEN: Soft, nontender. Liver and spleen not palpable. PSYCHIATRY: Awake, able to answer some simple questions. INVESTIGATIONS: Platelets 123. ASSESSMENT: 1. Fall due to medical debility. 2. ITP with a good response to IV immunoglobulin and steroids. The patient will not be put on maintenance dose. 3. Moderate cognitive impairment from underlying Alzheimer's dementia. 4. Significant medical debility. Patient is a total assist. 5. Diabetes mellitus type 2 on oral hypoglycemic. 6. Essential hypertension. 7. Moderate aortic stenosis, nonrheumatic. PLAN: Care was discussed with Dr. Peng. Patient will be switched to prednisone 40 mg and keep her on that dose. The patient is to go to rehab tomorrow. MMODL / IJN: [id number] /
[2018-04-18 22:54] VITALS: RESP 17
[2018-04-19 06:37] LABS: Methylmalonic Acid 0.45 umol/L (<0.40)
[2018-04-19 08:12] LABS: Calcium 9.2 mg/dL (8.4-10.2); Potassium 4.4 mmol/L (3.5-5.1)
[2018-04-19 08:15] LABS: Basophils % (A) 0 %; Eosinophils % (A) 0 %; HCT 34.8 % (34.0-46.0); HGB 11.6 gm/dL (11.4-16.0); Lymphocytes # (A) 1.6 k/uL (1.0-4.8); Lymphocytes % (A) 28 %; MCH 30.4 pg (25.0-35.0); MCHC 33.3 g/dL (31.0-37.0); MCV 91.3 fL (80.0-100.0); Mean Platelet Volume 7.3; Monocytes # (A) 0.3 k/uL (0-1.0); Monocytes % (A) 6 %; Neutrophils # (A) 3.7 k/uL (1.3-7.7); Neutrophils % (A) 64 %; Platelet Count 127 k/uL (150-450); RBC 3.82 m/uL (3.80-5.40); RDW 13.9 % (11.5-15.5); WBC 5.7 k/uL (3.8-10.6)
[2018-04-19] MEDS: CHLORTHALIDONE 25 MG TAB PO SCH (08:18)
[2018-04-19] MEDS: PANTOPRAZOLE 40 MG TABLET PO SCH (08:18)
[2018-04-19] MEDS: CARVEDILOL 3.125 MG TAB PO SCH (08:18)
[2018-04-19] MEDS: INSULIN ASPART 100 UNIT/ML 1 ML 10 ML VIAL SQ SCH ×2 (08:18→13:24)
[2018-04-19] MEDS: amLODIPine 5 MG TAB PO SCH (08:18)
[2018-04-19] MEDS: metFORMIN 500 MG TAB PO SCH (08:18)
[2018-04-19 08:23] LABS: Glucose,Whole Blood 108 mg/dL (75-99)
[2018-04-19] MEDS ORDERED: predniSONE 20 MG TAB PO SCH (09:00)
[2018-04-19 12:59] LABS: Glucose,Whole Blood 153 mg/dL (75-99)
[2018-04-19 15:40] VITALS: BP 132/73; PULSE 51; TEMP 98.2
--- NOTE | 2018-04-19 16:08 | DS ---
DISCHARGE SUMMARY DATE OF ADMISSION: 04/15/2018 DATE OF DISCHARGE: 04/19/2018 FINAL DIAGNOSES: 1. Significant ITP with a good response to IV immunoglobulin and steroids. 2. Multiple falls due to medical debility. 3. Advanced medical debility. 4. Moderate cognitive impairment from underlying Alzheimer's dementia. 5. Diabetes mellitus, type 2, on oral hypoglycemic. 6. Essential hypertension. 7. Moderate aortic stenosis, non-rheumatic. HOSPITAL COURSE: This patient presented with falls, found to be rather debilitated. Patient has moderate cognitive impairment; can answer some simple questions. Patient was seen by Physical Therapy and will need rehab. Also patient's platelets were running low. She was seen by Dr. Roberto from Oncology. Platelets were down in the 30s. The patient did receive IV immunoglobulin and high-dose steroids. Platelets bumped up to 127. The patient will be kept on a maintenance dose of prednisone, and that can be slowly tapered off tapered off. On examination, lungs are clear. CARDIOVASCULAR: First and second sounds normal. DISCHARGE MEDICATIONS: 1. Glucophage 1000 mg p.o. b.i.d. 2. Tylenol 650 mg q.6 p.r.n. 3. Coreg 3.125 p.o. b.i.d. 4. Chlorthalidone 25 mg p.o. daily. 5. Norvasc 5 mg p.o. daily. 6. Prednisone 40 mg p.o. daily to continue. DISPOSITION: [facility]. Follow up with Dr. Bain on 04/20/2018. Follow up with Dr. Roberto in 2 to 3 weeks. Labs CBC in 7 to 10 days. Prognosis is guarded. Follow up with Dr. Bain at [facility]. MMMICAELAL / MARGYN: [id number] /
== END 2018-04-19 17:53 | DRG 813 ==
LOC: EC 15:29 → 3SUR 19:38 → INTOOBSV 19:38 → OBSVTOIN 04-15 13:11 → 4MS4W 04-15 18:22
PROVIDERS: ADMIT Hospitalist; ATTEND Hospitalist
DX: D69.3 Immune thrombocytopenic purpura (principal); E87.1 Hypo-osmolality and hyponatremia; I16.1 Hypertensive emergency; D64.9 Anemia, unspecified; E11.9 Type 2 diabetes mellitus without complications; E78.5 Hyperlipidemia, unspecified; F02.80 Dementia in other diseases classified elsewhere, unspecified severity, without behavioral disturbance, psychotic disturbance, mood disturbance, and anxiety; F32.9 Major depressive disorder, single episode, unspecified; F41.9 Anxiety disorder, unspecified; G30.9 Alzheimer's disease, unspecified; I10 Essential (primary) hypertension; I27.20 Pulmonary hypertension, unspecified; I35.0 Nonrheumatic aortic (valve) stenosis; I34.0 Nonrheumatic mitral (valve) insufficiency; I36.1 Nonrheumatic tricuspid (valve) insufficiency; I44.0 Atrioventricular block, first degree; I45.10 Unspecified right bundle-branch block; J84.10 Pulmonary fibrosis, unspecified; K21.9 Gastro-esophageal reflux disease without esophagitis; M15.9 Polyosteoarthritis, unspecified; R29.6 Repeated falls; L71.9 Rosacea, unspecified; M10.9 Gout, unspecified; M25.551 Pain in right hip; M54.2 Cervicalgia; M54.9 Dorsalgia, unspecified; G89.29 Other chronic pain; R26.9 Unspecified abnormalities of gait and mobility; G43.909 Migraine, unspecified, not intractable, without status migrainosus; N39.41 Urge incontinence; I83.93 Asymptomatic varicose veins of bilateral lower extremities; S09.90XA Unspecified injury of head, initial encounter; Z79.84 Long term (current) use of oral hypoglycemic drugs; Z79.899 Other long term (current) drug therapy; Z88.6 Allergy status to analgesic agent; Z87.440 Personal history of urinary (tract) infections; Z90.710 Acquired absence of both cervix and uterus; Z98.42 Cataract extraction status, left eye; Z98.41 Cataract extraction status, right eye; Z96.1 Presence of intraocular lens; Z87.891 Personal history of nicotine dependence; Z82.49 Family history of ischemic heart disease and other diseases of the circulatory system; W06.XXXA Fall from bed, initial encounter
CPT/HCPCS: 36415; 51702; 70450; 71046; 72125; 73502; 74150; 80048; 80053; 81001; 82607; 82747; 83605; 83735; 83883; 83921; 84165; 85025; 85027; 85652; 86022; 86038; 86334; 86431; 87040; 87077; 87086; 87186; 93005; 93306; 96361; 96374; 99285

== ENCOUNTER 2018-08-13 14:03 | Inpatient (IN) | payer MEDICARE, BC ==
--- NOTE | 2018-08-13 15:00 | ED ---
General Adult HPI - General Chief complaint: Recheck/Abnormal Lab/Rx Stated complaint: Altered mental status Time Seen by Provider: 08/13/18 14:34 Source: patient, EMS, RN notes reviewed Mode of arrival: EMS Limitations: altered mental status - History of Present Illness Initial comments: Patient is a pleasant 88-year-old female presenting to the emergency department with change in mental status and functioning well at home. Patient is a poor historian and offers little information. Patient believes she is 52 years old. Patient believes she is here because her mother's is upset with her from making bad decisions. Patient denies any pain. Patient does not feel confused. - Related Data Home Medications Medication Instructions Recorded Confirmed metFORMIN HCL [Glucophage] 1,000 mg PO BID-W/MEALS 10/22/16 08/13/18 Cefuroxime [Ceftin] 250 mg PO BID 08/13/18 08/13/18 predniSONE 5 mg PO DAILY 08/13/18 08/13/18 Previous Rx's Medication Instructions Recorded Acetaminophen Tab [Tylenol] 650 mg PO Q6HR PRN tab 04/19/18 Carvedilol [Coreg] 3.125 mg PO BID-W/MEALS tab 04/19/18 Chlorthalidone [Hygroton] 25 mg PO DAILY tab 04/19/18 amLODIPine [Norvasc] 5 mg PO DAILY tab 04/19/18 Allergies Allergy/AdvReac Type Severity Reaction Status Date / Time aspirin AdvReac Abdominal Verified 08/13/18 14:43 Pain Review of Systems ROS Statement: Those systems with pertinent positive or pertinent negative responses have been documented in the HPI. ROS Other: All systems not noted in ROS Statement are negative. Constitutional: Denies: fever, chills Eyes: Denies: eye pain ENT: Denies: ear pain Respiratory: Denies: cough, dyspnea Cardiovascular: Denies: chest pain Endocrine: Denies: fatigue Gastrointestinal: Denies: abdominal pain Genitourinary: Denies: dysuria Musculoskeletal: Denies: back pain Skin: Denies: rash Neurological: Reports: as per HPI. Denies: weakness Past Medical History Past Medical History: Chest Pain / Angina, Dementia, Diabetes Mellitus, GERD/ Reflux, Hyperlipidemia, Hypertension, Memory Impairment, Osteoarthritis (OA), Skin Disorder Additional Past Medical History / Comment(s): NIDDM type II, cervical pain- wears cervical collar, OA multiple joints, heart murmur, aortic stenosis, tricuspid regurgitation, ROSACEA, GOUT, ANEMIA, MIGARAINES,SINUS PROBLEMS, INCONT OF URINE-wears depends at night, short term memory prb, falls, vertigo, bilateral varicosities, lower leg/pedal edema sore on rt foot, [place] History of Any Multi-Drug Resistant Organisms: None Reported Past Surgical History: Hysterectomy Additional Past Surgical History / Comment(s): BOWEL NICKED DURING A COLONOSCOPY HAD SX TO CORRECT. MANUEL CATARACTS-LENS IMPLANTS, D&C, epidural injections to back Past Anesthesia/Blood Transfusion Reactions: No Reported Reaction Past Psychological History: Anxiety, Depression Smoking Status: Former smoker Past Alcohol Use History: None Reported Past Drug Use History: None Reported - Past Family History Mother Family Medical History: Myocardial Infarction (CT) Additional Family Medical History / Comment(s): from [place] age 60 Father Additional Family Medical History / Comment(s): in his 80's from old age. General Exam Limitations: no limitations General appearance: alert, in no apparent distress Head exam: Present: atraumatic Eye exam: Present: normal appearance, PERRL, EOMI. Absent: nystagmus ENT exam: Present: normal oropharynx Neck exam: Present: normal inspection. Absent: tenderness, meningismus Respiratory exam: Present: normal lung sounds bilaterally Cardiovascular Exam: Present: regular rate, normal rhythm GI/Abdominal exam: Present: soft. Absent: tenderness Extremities exam: Present: normal inspection. Absent: pedal edema, calf tenderness Neurological exam: Present: alert, altered, CN II-XII intact. Absent: motor sensory deficit Expanded Neurological exam: Present: protecting the airway Patient oriented to: Present: person, place. Absent: time Cranial nerves: EOM's Intact: Normal, Facial Sensation: Normal Sensory exam: Upper Extremity Light Touch: Normal, Lower Extremity Light Touch: Normal Motor strength exam: RUE: 5, LUE: 5, RLE: 5, LLE: 5 Motor Response: (6) obeys commands Verbal Response: (4) confused conversation Psychiatric exam: Present: normal affect, normal mood Skin exam: Present: normal color Course Vital Signs 08/13/18 08/13/18 14:05 16:17 Temperature 99 F Pulse Rate 69 53 L Respiratory 16 18 Rate Blood Pressure 157/69 133/60 O2 Sat by Pulse 98 99 Oximetry EKG Findings - EKG Comments: EKG Findings:: Sinus bradycardia 58. For screening AV block MD of 228. QRS 152. QT 456. QTc 447. Left axis. Right bundle branch block. Left anterior fascicular block. LVH criteria. Nonspecific T waves. Medical Decision Making - Medical Decision Making Patient reevaluated and resting comfortably in bed. Patient updated on results and plan. Case discussed in detail with Dr. Moura, who will admit for Dr. Bain. He requests cardiology consultation. No IV heparin at this time. - Lab Data Result diagrams: 08/13/18 15:00 08/13/18 15:00 Lab Results 08/13/18 08/13/18 08/13/18 Range/Units 15:00 15:00 15:00 WBC 3.7 L (3.8-10.6) k/uL RBC 3.81 (3.80-5.40) m/uL Hgb 11.6 (11.4-16.0) gm/dL Hct 34.0 (34.0-46.0) % MCV 89.3 (80.0-100.0) fL MCH 30.5 (25.0-35.0) pg MCHC 34.1 (31.0-37.0) g/dL RDW 13.5 (11.5-15.5) % Plt Count 188 (150-450) k/uL Neutrophils % 58 % Lymphocytes % 29 % Monocytes % 7 % Eosinophils % 3 % Basophils % 1 % Neutrophils # 2.2 (1.3-7.7) k/uL Lymphocytes # 1.1 (1.0-4.8) k/uL Monocytes # 0.3 (0-1.0) k/uL Eosinophils # 0.1 (0-0.7) k/uL Basophils # 0.0 (0-0.2) k/uL PT (9.0-12.0) sec INR (<1.2) APTT (22.0-30.0) sec Sodium 127 L (137-145) mmol/L Potassium 3.9 (3.5-5.1) mmol/L Chloride 87 L (98-107) mmol/L Carbon Dioxide 30 (22-30) mmol/L Anion Gap 10 mmol/L BUN 28 H (7-17) mg/dL Creatinine 1.08 H (0.52-1.04) mg/dL Est GFR (CKD-EPI)AfAm 54 (>60 ml/min/1.73 sqM) Est GFR (CKD-EPI)NonAf 47 (>60 ml/min/1.73 sqM) Glucose 106 H (74-99) mg/dL Calcium 9.4 (8.4-10.2) mg/dL Total Bilirubin 0.7 (0.2-1.3) mg/dL AST 31 (14-36) U/L ALT 22 (9-52) U/L Alkaline Phosphatase 65 (38-126) U/L Total Creatine Kinase 25 L (30-135) U/L CK-MB (CK-2) 0.9 (0.0-2.4) ng/mL CK-MB (CK-2) Rel Index 3.6 Troponin I 0.107 H* (0.000-0.034) ng/mL Total Protein 6.9 (6.3-8.2) g/dL Albumin 3.8 (3.5-5.0) g/dL 08/13/18 Range/Units 15:00 WBC (3.8-10.6) k/uL RBC (3.80-5.40) m/uL Hgb (11.4-16.0) gm/dL Hct (34.0-46.0) % MCV (80.0-100.0) fL MCH (25.0-35.0) pg MCHC (31.0-37.0) g/dL RDW (11.5-15.5) % Plt Count (150-450) k/uL Neutrophils % % Lymphocytes % % Monocytes % % Eosinophils % % Basophils % % Neutrophils # (1.3-7.7) k/uL Lymphocytes # (1.0-4.8) k/uL Monocytes # (0-1.0) k/uL Eosinophils # (0-0.7) k/uL Basophils # (0-0.2) k/uL PT 10.1 (9.0-12.0) sec INR 1.0 (<1.2) APTT 23.9 (22.0-30.0) sec Sodium (137-145) mmol/L Potassium (3.5-5.1) mmol/L Chloride (98-107) mmol/L Carbon Dioxide (22-30) mmol/L Anion Gap mmol/L BUN (7-17) mg/dL Creatinine (0.52-1.04) mg/dL Est GFR (CKD-EPI)AfAm (>60 ml/min/1.73 sqM) Est GFR (CKD-EPI)NonAf (>60 ml/min/1.73 sqM) Glucose (74-99) mg/dL Calcium (8.4-10.2) mg/dL Total Bilirubin (0.2-1.3) mg/dL AST (14-36) U/L ALT (9-52) U/L Alkaline Phosphatase (38-126) U/L Total Creatine Kinase (30-135) U/L CK-MB (CK-2) (0.0-2.4) ng/mL CK-MB (CK-2) Rel Index Troponin I (0.000-0.034) ng/mL Total Protein (6.3-8.2) g/dL Albumin (3.5-5.0) g/dL - Radiology Data Radiology results: image reviewed (Chest x-ray shows no acute process) Disposition Clinical Impression: Hyponatremia, Altered mental status Disposition: ADMITTED IP TO THIS HOSP Is patient prescribed a controlled substance at d/c from ED?: No Referrals: Scottie Bain DO [Primary Care Provider] - 1-2 days Decision Time: 16:33
[2018-08-13 15:18] LABS: Basophils % (A) 1 %; Eosinophils # (A) 0.1 k/uL (0-0.7); Eosinophils % (A) 3 %; HGB 11.6 gm/dL (11.4-16.0); Lymphocytes # (A) 1.1 k/uL (1.0-4.8); Lymphocytes % (A) 29 %; MCH 30.5 pg (25.0-35.0); MCHC 34.1 g/dL (31.0-37.0); MCV 89.3 fL (80.0-100.0); Mean Platelet Volume 6.6; Monocytes # (A) 0.3 k/uL (0-1.0); Monocytes % (A) 7 %; Neutrophils # (A) 2.2 k/uL (1.3-7.7); Neutrophils % (A) 58 %; Platelet Count 188 k/uL (150-450); RBC 3.81 m/uL (3.80-5.40); RDW 13.5 % (11.5-15.5); WBC 3.7 k/uL (3.8-10.6)
[2018-08-13 15:28] LABS: Albumin 3.8 g/dL (3.5-5.0); Calcium 9.4 mg/dL (8.4-10.2); Total Bilirubin 0.7 mg/dL (0.2-1.3); Total Protein 6.9 g/dL (6.3-8.2)
[2018-08-13 15:31] LABS: Partial Thromboplastin Time 23.9 sec (22.0-30.0); Prothrombin Time 10.1 sec (9.0-12.0)
[2018-08-13 15:46] LABS: Potassium 3.9 mmol/L (3.5-5.1)
[2018-08-13 15:53] LABS: Creatine Kinase MB 0.9 ng/mL (0.0-2.4)
--- NOTE | 2018-08-13 15:53 | XR ---
EXAMINATION TYPE: XR chest 2V DATE OF EXAM: 08/13/2018 COMPARISON: 04/13/2018 HISTORY: Shortness of breath TECHNIQUE: Frontal and lateral views of the chest are obtained. FINDINGS: Scattered senescent parenchymal changes noted. Hyperinflation compatible with COPD. No evidence for infiltrate. No evidence for atelectasis. Heart size is stable. Mediastinal structures are stable and grossly unremarkable. No evidence for hilar prominence. Degenerative changes dorsal spine. IMPRESSION: 1. No evidence for acute pulmonary disease.
[2018-08-13 16:05] LABS: Troponin I 0.107 ng/mL (0.000-0.034)
[2018-08-13] MEDS ORDERED: NALOXONE 0.4 MG/ML 1 ML VIAL IV PRN (16:33)
[2018-08-13] MEDS ORDERED: ASPIRIN 81 MG PO STA (16:35)
[2018-08-13 16:37] LABS: Appearance,Urine Clear (Clear); Bacteria,Urine Rare /hpf; Bilirubin,Urine Negative (Negative); Blood,Urine Negative (Negative); Color,Urine Light Yellow; Glucose,Urine (UA) Negative (Negative); Hyaline Casts,Urine 3 /lpf (0-2); Ketones,Urine Negative (Negative); Leukocyte Esterase,Urine Moderate (Negative); Mucus,Urine Rare /hpf; Nitrite,Urine Negative (Negative); PH, Urine 6.5 (5.0-8.0); Protein,Urine Trace (Negative); RBC,Urine 2 /hpf (0-5); Specific Gravity,Urine 1.009 (1.001-1.035); Squamous Epithelial Cell,Urine <1 /hpf (0-4); Urobilinogen,Urine <2.0 mg/dL (<2.0); WBC,Urine 7 /hpf (0-5)
[2018-08-13 16:42] LABS: Amphetamine Screen,Urine Not Detected (NotDetected); Barbiturate Screen,Urine Not Detected (NotDetected); Benzodiazepines Screen,Urine Not Detected (NotDetected); Cocaine Screen,Urine Not Detected (NotDetected); Methadone Screen, Urine Not Detected (NotDetected); Opiate Screen,Urine Not Detected (NotDetected); Oxycodone Screen, Urine Not Detected (NotDetected); Phencyclidine Screen,Urine Not Detected (NotDetected); Tricyclic Antidepressant,Urine Not Detected (NotDetected); Urn Cannabinoid Scrn Not Detected (NotDetected)
[2018-08-13] MEDS ORDERED: HEPARIN SODIUM,PORCINE 5,000 UNIT/ML 1 ML VIAL SQ STA (17:05)
[2018-08-13] MEDS: SODIUM CHLORIDE 0.9% 1,000 ML IV SCH (17:16)
[2018-08-13 21:13] LABS: Creatine Kinase MB 0.9 ng/mL (0.0-2.4)
[2018-08-13 21:22] LABS: Troponin I 0.104 ng/mL (0.000-0.034)
[2018-08-14] MEDS: SODIUM CHLORIDE 0.9% 1,000 ML IV SCH ×2 (02:03→20:10)
[2018-08-14 03:41] LABS: Basophils % (A) 1 %; Eosinophils # (A) 0.1 k/uL (0-0.7); Eosinophils % (A) 3 %; HCT 33.9 % (34.0-46.0); HGB 11.3 gm/dL (11.4-16.0); Lymphocytes # (A) 1.4 k/uL (1.0-4.8); Lymphocytes % (A) 30 %; MCH 30.7 pg (25.0-35.0); MCHC 33.3 g/dL (31.0-37.0); Monocytes # (A) 0.3 k/uL (0-1.0); Monocytes % (A) 6 %; Neutrophils # (A) 2.6 k/uL (1.3-7.7); Neutrophils % (A) 58 %; Platelet Count 187 k/uL (150-450); RBC 3.68 m/uL (3.80-5.40); RDW 13.6 % (11.5-15.5); WBC 4.5 k/uL (3.8-10.6)
[2018-08-14 03:50] LABS: Calcium 9.3 mg/dL (8.4-10.2); Potassium 3.4 mmol/L (3.5-5.1)
[2018-08-14 04:08] LABS: Creatine Kinase MB 1.2 ng/mL (0.0-2.4)
[2018-08-14 04:24] LABS: Troponin I 0.12 ng/mL (0.000-0.034)
[2018-08-14] MEDS ORDERED: ACETAMINOPHEN TAB 325 MG TAB PO PRN (06:05)
[2018-08-14 06:17] LABS: Glucose,Whole Blood 89 mg/dL (75-99)
[2018-08-14] MEDS: metFORMIN 500 MG TAB PO SCH ×2 (06:17→17:36)
[2018-08-14] MEDS: CARVEDILOL 3.125 MG TAB PO SCH ×2 (06:20→17:39)
[2018-08-14] MEDS: POTASSIUM BICARBONATE/CIT AC 20 MEQ TABLET.EFF PO SCH ×2 (06:20→06:24)
[2018-08-14] MEDS ORDERED: POTASSIUM CHLORIDE 20 MEQ in WATER FOR INJECTION 1 100ML.BAG IVPB STA (06:24)
[2018-08-14] MEDS ORDERED: CHLORTHALIDONE 25 MG TAB PO SCH (09:00)
[2018-08-14] MEDS ORDERED: ASPIRIN 325 MG TAB PO SCH (09:00)
[2018-08-14] MEDS ORDERED: amLODIPine 5 MG TAB PO SCH (09:00)
[2018-08-14] MEDS: HEPARIN SODIUM,PORCINE 5,000 UNIT/ML 1 ML VIAL SQ SCH ×2 (09:25→20:10)
[2018-08-14 12:25] LABS: Glucose,Whole Blood 104 mg/dL (75-99)
[2018-08-14 12:27] LABS: Hemoglobin A1C 5.6 % (4.0-6.0)
[2018-08-14] MEDS ORDERED: NALOXONE 0.4 MG/ML 1 ML VIAL IV PRN (15:47)
--- NOTE | 2018-08-14 17:08 | HP ---
HISTORY AND PHYSICAL DATE OF ADMISSION: 08/13/2018 DATE OF SERVICE: 08/14/2018 PRESENTING COMPLAINT: Increasing confusion. HISTORY OF PRESENTING COMPLAINT: This is an 88-year-old patient who follows with Dr. Bain. Chronic stable medical conditions include diabetes, GERD, hypertension, hyperlipidemia, osteoarthritis, aortic stenosis, tricuspid regurgitation, ITP, rosacea, varicose veins. The patient lives with her daughter, uses a cane to get about. Patient has baseline cognitive impairment. Patient presents to the ER and history was obtained through the ER with worsening mental status, getting more confused. The patient is tolerating some diet. There was a question about falls, not eating adequately. Hence patient was admitted for the same. The patient herself is a poor historian and really cannot tell me much of the history. She is not sure exactly why she is here; she "could be here because [her] daughter was upset with [her]." REVIEW OF SYSTEMS: CONSTITUTIONAL: Tired. HEENT: None. RESPIRATORY: None. CARDIOVASCULAR: No chest pain. GASTROINTESTINAL: Heartburn. GENITOURINARY: None. MUSCULOSKELETAL: Arthritic pain in joints. DERMATOLOGICAL: None. HEMATOLOGICAL: None. LYMPHATICS: None. PSYCHIATRY: Forgetful. NEUROLOGICAL: Uses a cane. PAST MEDICAL HISTORY: 1. Cognitive impairment. 2. Diabetes mellitus, type 2. 3. GERD. 4. Hyperlipidemia. 5. Hypertension. 6. Osteoarthritis. 7. Cervical pain with cervical collar. 8. Osteoarthritis in multiple joints. 9. Aortic stenosis. 10.Tricuspid regurgitation. 11.Rosacea. 12.Gout. 13.Falls. 14.Bilateral lower extremity varicosities. 15.ITP. PAST SURGICAL HISTORY: 1. Hysterectomy. 2. Bowel injury during colonoscopy that had surgical repair. 3. Bilateral cataracts and lens implant. 4. Epidural injections. PSYCH HISTORY: Anxiety, depression. SOCIAL HISTORY: Patient's daughter lives with her. Patient uses a cane. 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 Does not smoke or drink alcohol. FAMILY HISTORY: Myocardial infarction. HOME MEDICATIONS: 1. Prednisone 5 mg a day. 2. Glucophage 1000 mg b.i.d. 3. Norvasc 5 mg a day. 4. Chlorthalidone 25 mg a day. 5. Ceftin 250 mg b.i.d. 6. Coreg 3.125 p.o. b.i.d. 7. Tylenol 650 mg q.6 p.r.n. ALLERGIES: ASPIRIN. PHYSICAL EXAMINATION: Temperature 99, pulse 53, respiration 15, blood pressure 170/68, repeat 133/60, pulse ox 99% on room air. GENERAL APPEARANCE: Average build. Sitting up. Tired-appearing. EYES: Pupils equal. Conjunctivae normal. HEENT: External appearance of nose and ears normal. Oral cavity normal. NECK: JVD not raised. Mass not palpable. RESPIRATORY: Effort normal. LUNGS: Fair air entry. CARDIOVASCULAR: First and second sounds normal. No edema. ABDOMEN: Soft, non-tender. Liver and spleen not palpable. LYMPHATIC: No lymph node palpable in neck or axillae. PSYCHIATRY: Patient could not tell why she is here or what month it is, what exactly she is here for. NEUROLOGICAL: Pupils equal. No facial asymmetry. Moving all 4 limbs. MUSCULOSKELETAL: Evidence of osteoarthritis, especially in the hands and knees. INVESTIGATIONS: White count 4.5, hemoglobin 11.3, potassium 3.4, sodium 130, BUN 24, creatinine 1.05. Troponin 0.1, 0.1. EKG tracing, reviewed by me, shows right bundle branch block. Chest x-ray film, personally reviewed by me, shows a bit of a tubular heart; no obvious infiltrate. Some unfolding of the aorta. Evidence of osteoarthritis in the spine. ASSESSMENT: 1. Hyponatremia, probably from volume contraction, possibly contributing to acute delirium. 2. Hypochloremia. 3. Hypokalemia. 4. Clinical dehydration with elevated BUN. 5. Normocytic anemia, cause undetermined. 6. Diabetes mellitus, type 2, on oral hypoglycemic. 7. 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 8. Essential hypertension. 9. Hyperlipidemia. 10.Primary osteoarthritis. 11.Chronic aortic stenosis, tricuspid regurgitation, non-rheumatic. 12.Chronic rosacea. 13.Chronic lower extremity varicose veins. PLAN: Patient will be put on normal saline. Hold off patient's diuretic. Home medications are resumed. Will increase patient's Norvasc if blood pressure goes up. Fall precautions in place. Home medications otherwise are resumed. No family is currently present. Will get PT/OT to look at the patient. MMODL / IJN: [id number] /
[2018-08-14 17:16] LABS: Glucose,Whole Blood 107 mg/dL (75-99)
[2018-08-14] MEDS: predniSONE 5 MG TAB PO SCH (17:39)
[2018-08-14 20:46] LABS: Glucose,Whole Blood 227 mg/dL (75-99)
[2018-08-14] MEDS: amLODIPine 5 MG TAB PO SCH (23:17)
[2018-08-15 06:23] LABS: Glucose,Whole Blood 113 mg/dL (75-99)
[2018-08-15] MEDS: metFORMIN 500 MG TAB PO SCH ×2 (06:26→17:29)
[2018-08-15] MEDS: CARVEDILOL 3.125 MG TAB PO SCH ×2 (06:30→17:34)
[2018-08-15 06:57] LABS: Calcium 8.8 mg/dL (8.4-10.2)
[2018-08-15] MEDS ORDERED: FUROSEMIDE 20 MG TAB PO SCH (09:00)
[2018-08-15] MEDS: SODIUM CHLORIDE 0.9% 1,000 ML IV SCH (09:35)
[2018-08-15] MEDS: amLODIPine 5 MG TAB PO SCH ×2 (09:36→20:11)
[2018-08-15] MEDS: HEPARIN SODIUM,PORCINE 5,000 UNIT/ML 1 ML VIAL SQ SCH ×2 (09:36→20:11)
[2018-08-15] MEDS: predniSONE 5 MG TAB PO SCH (11:53)
[2018-08-15 11:55] LABS: Glucose,Whole Blood 111 mg/dL (75-99)
--- NOTE | 2018-08-15 13:13 | P.CRDCN ---
History of Present Illness History of present illness: This is a pleasant 88 showed female past medical history significant for hypertension, dyslipidemia, diabetes mellitus, aortic stenosis, CVA and gastroesophageal reflux disease. She follows with Dr. Pearson in the office. We have been asked to see her in consultation for cardiac evaluation. She was brought to the hospital by her daughter secondary to change in mental status and decreased and function at home. She is seen and examined lying flat in bed in no acute distress. She is pleasantly confused and denies all complaints currently. She is unsure why she was brought to the hospital. She denies chest pain, shortness of breath, dizziness or palpitations. EKG reveals sinus bradycardia heart rate of 58 with first-degree AV block and right bundle branch block pattern as well as left anterior fascicular block. Chest x-ray negative for an acute cardiopulmonary process. Laboratory data reviewed, sodium 127, potassium 4.0, creatinine 0.92, WBC 4.5, hemoglobin 11.3, platelets 187. Cardiac enzymes 0.107, 0.104 and 0.120. Most recent echocardiogram obtained March 2018 reveals preserved left ventricular systolic function with ejection fraction 50-55%, mild to moderate aortic valve sclerosis with mild aortic regurgitation mean gradient 38 mmHg. Current cardiac medications include carvedilol 3.125 mg BID, chlorthalidone 25 mg daily, amlodipine 5 mg daily. Also on prednisone, glucophage and tylenol. At the time of my exam: Difficult to obtain secondary to mental status although she denies COMPLAINTS. CONSTITUTIONAL: Denies fever. Denies chills. EYES: Denies blurred vision. Denies vision changes. Denies eye pain. EARS, NOSE, MOUTH & THROAT: Denies headache. Denies sore throat. Denies ear pain. CARDIOVASCULAR: Denies chest pain. Denies shortness of breath. Denies orthopnea. Denies PND. Denies palpitations. RESPIRATORY: Denies cough. GASTROINTESTINAL: Denies abdominal pain. Denies diarrhea. Denies constipation. Denies nausea. Denies vomiting. MUSCULOSKELETAL: Denies myalgias. INTEGUMENTARY: Denies pruitis. Denies rash. NEUROLOGIC: Denies numbness. Denies tingling. Denies weakness. PSYCHIATRIC: Denies anxiety. Denies depression. ENDOCRINE: Denies fatigue. Denies weight change. Denies polydipsia. Denies polyurina. GENITOURINARY: Denies burning, hematuria or urgency with micturation. HEMATOLOGIC: Denies history of anemia. Denies bleeding. Blood pressure 133/65 heart rate 51 afebrile maintaining oxygen saturation on room air GENERAL: This is a 88-year-old female in no apparent distress at the time of my examination. HEENT: Head is atraumatic, normocephalic. Pupils are equal, round. Sclerae anicteric. Conjunctivae are clear. Mucous membranes of the mouth are moist. Neck is supple. There is no jugular venous distention. No carotid bruit is heard. LUNGS: Clear to auscultation no wheezes, rales or rhonchi. No chest wall tenderness is noted on palpation or with deep breathing. HEART: Regular rate and rhythm with systolic ejection murmur at the base , no rubs or gallops. S1 and S2 heard. ABDOMEN: Soft, nontender. Bowel sounds are heard. No organomegaly noted. EXTREMITIES: No evidence of peripheral edema and no calf tenderness noted. VASCULAR: Radial and dorsalis pedis pulses palpated, no evidence of clubbing. NEUROLOGIC: Patient is awake, alert and disoriented. ASSESSMENT Altered mental status with history of dementia Hyponatremia Aortic stenosis, mean gradient 38 mmHg Dyslipidemia Hypertension Mild troponin leak, not indicative of an acute coronary event. PLAN Continue current medical regimen. No cardiac intervention or further work-up indicated. Follow up with Dr. Pearson upon discharge. We will continue to follow as needed, thank you kindly for this consultation. Nurse Practitioner note has been reviewed, I agree with a documented findings and plan of care. Patient was seen and examined. Past Medical History Past Medical History: Chest Pain / Angina, CVA/TIA, Dementia, Diabetes Mellitus , GERD/Reflux, Hyperlipidemia, Hypertension, Memory Impairment, Osteoarthritis ( OA), Skin Disorder Additional Past Medical History / Comment(s): currently has idc.uti/abx, NIDDM type II, cervical pain-wears cervical collar, OA multiple joints, heart murmur, aortic stenosis, tricuspid regurgitation, ROSACEA, GOUT, ANEMIA, MIGARAINES, SINUS PROBLEMS,, short term memory prb, falls, vertigo, bilateral varicosities, lower leg/pedal edema sore on rt foot, hohper daughter pt has had a stroke in past, hx itp History of Any Multi-Drug Resistant Organisms: None Reported Past Surgical History: Hysterectomy Additional Past Surgical History / Comment(s): BOWEL NICKED DURING A COLONOSCOPY HAD SX TO CORRECT. MANUEL CATARACTS-LENS IMPLANTS, D&C, epidural injections to back Past Anesthesia/Blood Transfusion Reactions: No Reported Reaction Smoking Status: Former smoker - Past Family History Mother Family Medical History: Myocardial Infarction (MD) Additional Family Medical History / Comment(s): from [place] age 60 Father Additional Family Medical History / Comment(s): in his 80's from old age. Medications and Allergies Home Medications Medication Instructions Recorded Confirmed Type metFORMIN HCL [Glucophage] 1,000 mg PO BID-W/MEALS 10/22/16 08/13/18 History Acetaminophen Tab [Tylenol] 650 mg PO Q6HR PRN tab 04/19/18 08/13/18 Rx Carvedilol [Coreg] 3.125 mg PO BID-W/MEALS tab 04/19/18 08/13/18 Rx Chlorthalidone [Hygroton] 25 mg PO DAILY tab 04/19/18 08/13/18 Rx amLODIPine [Norvasc] 5 mg PO DAILY tab 04/19/18 08/13/18 Rx Cefuroxime [Ceftin] 250 mg PO BID 08/13/18 08/13/18 History predniSONE 5 mg PO DAILY 08/13/18 08/13/18 History Allergies Allergy/AdvReac Type Severity Reaction Status Date / Time aspirin AdvReac Abdominal Verified 08/13/18 14:43 Pain Physical Exam Vitals: Vital Signs Temp Pulse Resp BP Pulse Ox 08/15/18 11:28 98.2 F 51 L 16 133/65 99 08/15/18 08:00 97.7 F 53 L 16 157/67 100 08/15/18 04:00 97.5 F L 54 L 16 153/69 97 08/14/18 23:51 96.9 F L 57 L 16 165/75 99 08/14/18 22:30 195/84 08/14/18 20:00 96.3 F L 63 16 169/76 99 08/14/18 15:37 16 08/14/18 15:30 98.3 F 54 L 16 134/62 97 Intake and Output 08/14/18 08/15/18 08/15/18 22:59 06:59 14:59 Intake Total 600 600 Output Total 2350 Balance 600 -1750 Intake: IV 600 600 Sodium Chloride 0.9% 1, 600 600 000 ml @ 75 mls/hr IV . [id number] [facility] Rx#:[id number] Output: Urine 2350 Other: Voiding Method Indwelling Catheter Indwelling Catheter Indwelling Catheter Weight 53.5 kg Results 08/14/18 03:01 08/15/18 05:52 Comprehensive Metabolic Panel 08/15/18 Range/Units 05:52 Sodium 127 L (137-145) mmol/L Potassium 4.0 (3.5-5.1) mmol/L Chloride 93 L (98-107) mmol/L Carbon Dioxide 27 (22-30) mmol/L BUN 16 (7-17) mg/dL Creatinine 0.92 (0.52-1.04) mg/dL Glucose 112 H (74-99) mg/dL Calcium 8.8 (8.4-10.2) mg/dL Current Medications Generic Name Dose Route Start Last Admin Trade Name Freq PRN Reason Stop Dose Admin Acetaminophen 650 mg 08/14/18 06:05 Tylenol Tab PO Q6HR PRN Mild Pain or Fever > 100.5 Amlodipine Besylate 5 mg 08/14/18 23:00 08/15/18 09:36 Norvasc PO 5 mg BID [facility] Administration Carvedilol 3.125 mg 08/14/18 07:30 08/15/18 06:30 Coreg PO 3.125 mg BID-W/MEALS [facility] Administration Heparin Sodium (Porcine) 5,000 unit 08/14/18 09:00 08/15/18 09:36 Heparin SQ 5,000 unit Q12HR [facility] Administration Sodium Chloride 1,000 mls @ 75 mls/hr 08/13/18 16:45 08/15/18 09:35 Saline 0.9% IV 75 mls/hr .[id number] [facility] Administration Metformin HCl 1,000 mg 08/14/18 07:30 08/15/18 06:26 Glucophage PO Not Given BID-W/MEALS [facility] Naloxone HCl 0.2 mg 08/13/18 16:33 Narcan IV Q2M PRN Opioid Reversal Naloxone HCl 0.2 mg 08/14/18 15:47 Narcan IV Q2M PRN Opioid Reversal Prednisone 5 mg 08/14/18 15:45 08/15/18 11:53 PO 5 mg DAILY [facility] Administration Intake and Output 08/14/18 08/15/18 08/15/18 22:59 06:59 14:59 Intake Total 600 600 Output Total 2350 Balance 600 -1750 Intake: IV 600 600 Sodium Chloride 0.9% 1, 600 600 000 ml @ 75 mls/hr IV . [id number] [facility] Rx#:[id number] Output: Urine 2350 Other: Voiding Method Indwelling Catheter Indwelling Catheter Indwelling Catheter Weight 53.5 kg 08/14/18 03:01 08/15/18 05:52
[2018-08-15 17:07] LABS: Glucose,Whole Blood 136 mg/dL (75-99)
--- NOTE | 2018-08-15 17:09 | PN ---
PROGRESS NOTE DATE OF SERVICE: 08/15/2018. PRESENTING COMPLAINT: Increasing confusion. INTERVAL HISTORY: This patient presented with hyponatremia, uncontrolled blood pressure. Does not care, too much family present today. Blood pressure is running high. Medications were adjusted to increasing the Norvasc. Lying in bed. REVIEW OF SYSTEMS: Done for constitutional, cardiovascular, GI, pulmonary; relevant findings as above. CURRENT MEDICATIONS: Reviewed that include: 1. Norvasc 5 mg b.i.d. 2. Coreg 3.125 twice a day. 3. Normal saline. PHYSICAL EXAMINATION: Temperature 98.1, pulse 56, respirations 16, blood pressure 126/88, pulse ox 100 percent on room air. GENERAL APPEARANCE: Lying in bed, awake. EYES: Pupils equal. Conjunctivae normal. HEENT: External appearance of nose and ears normal. Oral cavity normal. NECK: JVD not raised. Mass not palpable. RESPIRATORY: Effort, lungs are clear. CARDIOVASCULAR: First and second sounds, no edema. ABDOMEN: Soft, nontender. Liver and spleen not palpable. PSYCHIATRY: Patient is answering simple questions. INVESTIGATIONS: Sodium 127, potassium 4.0. ASSESSMENT: 1. Hyponatremia probably from volume contraction from poor oral intake. 2. Acute delirium. 3. Hypochloremia. 4. Hypokalemia, being corrected. 5. Clinical dehydration on presentation with elevated BUN. 6. Normocytic anemia, cause undetermined. 7. Diabetes mellitus type 2 on oral hypoglycemic. 8. 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 9. Essential hypertension. 10.Hyperlipidemia. 11.Primary osteoarthritis. 12.Chronic gout. 13.Chronic aortic stenosis, tricuspid regurgitation, nonrheumatic. 14.Chronic rosacea. 15.Chronic lower extremity varicose veins. PLAN: Continue current medication and treatment plan. Blood pressure is better controlled. We will check the patient's sodium again tomorrow. Serum osmolality. The patient is not very keen to eat. Follow. MMODL / IJN: [id number] /
[2018-08-15 20:30] LABS: Glucose,Whole Blood 268 mg/dL (75-99)
[2018-08-16 05:48] LABS: Glucose,Whole Blood 98 mg/dL (75-99)
[2018-08-16] MEDS: INSULIN ASPART 100 UNIT/ML 1 ML 10 ML VIAL SQ SCH ×4 (06:04→22:04)
[2018-08-16] MEDS: metFORMIN 500 MG TAB PO SCH ×2 (06:04→16:33)
[2018-08-16] MEDS: SODIUM CHLORIDE 0.9% 1,000 ML IV SCH ×2 (06:31→11:50)
[2018-08-16] MEDS: CARVEDILOL 3.125 MG TAB PO SCH ×2 (06:31→16:33)
[2018-08-16 07:10] LABS: Calcium 9.1 mg/dL (8.4-10.2); Potassium 3.5 mmol/L (3.5-5.1)
[2018-08-16] MEDS: HEPARIN SODIUM,PORCINE 5,000 UNIT/ML 1 ML VIAL SQ SCH ×2 (08:53→22:03)
[2018-08-16] MEDS: amLODIPine 5 MG TAB PO SCH ×2 (08:54→22:03)
[2018-08-16 11:20] LABS: Glucose,Whole Blood 135 mg/dL (75-99)
--- NOTE | 2018-08-16 11:24 | P.CRDCN ---
History of Present Illness Consult date: 08/14/18 Requesting physician: Tyson Moura Reason for Consult (text): Mental status changes Chief complaint: Mental status changes History of present illness: This is an 88-year-old female with known history of diabetes, hypertension, hyperlipidemia, prior CVA, GERD, dementia, who follows regularly with Dr. Pearson in the office. She was admitted to the hospital with mental status changes and increased fatigue and tiredness. Most of the history was obtained from the medical record as the patient is somewhat confused. Her EKG on presentation here revealed sinus bradycardia with a heart rate in the 50s, first-degree AV block and right bundle branch block pattern. Chest x-ray negative for any cardiopulmonary process. Sodium 127, potassium 3.9, BUN 28, creatinine 1.0. White blood cell count 3.7, hemoglobin 11.6, platelet count 188. Troponins 0.1 0.1 0.12. Drug screen negative. Patient had an echo cardiac gram with Doppler study performed in March of this year which revealed a normal left ventricular systolic function. At the time of my examination, patient appears comfortable. Past Medical History Past Medical History: Chest Pain / Angina, CVA/TIA, Dementia, Diabetes Mellitus , GERD/Reflux, Hyperlipidemia, Hypertension, Memory Impairment, Osteoarthritis ( OA), Skin Disorder Additional Past Medical History / Comment(s): currently has idc.uti/abx, NIDDM type II, cervical pain-wears cervical collar, OA multiple joints, heart murmur, aortic stenosis, tricuspid regurgitation, ROSACEA, GOUT, ANEMIA, MIGARAINES, SINUS PROBLEMS,, short term memory prb, falls, vertigo, bilateral varicosities, lower leg/pedal edema sore on rt foot, hohper daughter pt has had a stroke in past, hx itp History of Any Multi-Drug Resistant Organisms: None Reported Past Surgical History: Hysterectomy Additional Past Surgical History / Comment(s): BOWEL NICKED DURING A COLONOSCOPY HAD SX TO CORRECT. MANUEL CATARACTS-LENS IMPLANTS, D&C, epidural injections to back Past Anesthesia/Blood Transfusion Reactions: No Reported Reaction Smoking Status: Former smoker - Past Family History Mother Family Medical History: Myocardial Infarction (ID) Additional Family Medical History / Comment(s): from [place] age 60 Father Additional Family Medical History / Comment(s): in his 80's from old age. Medications and Allergies Home Medications Medication Instructions Recorded Confirmed Type metFORMIN HCL [Glucophage] 1,000 mg PO BID-W/MEALS 10/22/16 08/13/18 History Acetaminophen Tab [Tylenol] 650 mg PO Q6HR PRN tab 04/19/18 08/13/18 Rx Carvedilol [Coreg] 3.125 mg PO BID-W/MEALS tab 04/19/18 08/13/18 Rx Chlorthalidone [Hygroton] 25 mg PO DAILY tab 04/19/18 08/13/18 Rx amLODIPine [Norvasc] 5 mg PO DAILY tab 04/19/18 08/13/18 Rx Cefuroxime [Ceftin] 250 mg PO BID 08/13/18 08/13/18 History predniSONE 5 mg PO DAILY 08/13/18 08/13/18 History Allergies Allergy/AdvReac Type Severity Reaction Status Date / Time aspirin AdvReac Abdominal Verified 08/13/18 14:43 Pain Physical Exam Vitals: Vital Signs Temp Pulse Pulse Resp BP BP Pulse Ox 08/14/18 11:36 97.8 F 55 L 20 141/74 100 08/14/18 08:25 98.5 F 53 L 16 124/58 99 08/14/18 03:45 96.2 F L 58 L 16 181/75 98 08/14/18 00:00 98.1 F 76 16 177/73 98 08/13/18 19:00 53 L 15 152/75 08/13/18 18:30 53 L 16 149/65 98 08/13/18 18:00 52 L 16 157/66 98 08/13/18 17:30 55 L 11 L 157/67 98 08/13/18 17:00 54 L 16 141/59 98 08/13/18 16:30 53 L 14 133/60 99 08/13/18 16:17 53 L 18 133/60 99 08/13/18 16:00 53 L 15 170/68 99 08/13/18 15:54 135 H 16 08/13/18 14:05 99 F 69 16 157/69 98 Intake and Output 08/13/18 08/14/18 08/14/18 22:59 06:59 14:59 Intake Total 75 600 Output Total 850 Balance 75 -250 Intake: IV 75 600 Sodium Chloride 0.9% 1, 75 600 000 ml @ 75 mls/hr IV . [id number] [facility] Rx#:[id number] Output: Urine 850 Other: Voiding Method Indwelling Catheter Indwelling Catheter PHYSICAL EXAMINATION: GENERAL: 88-year-old female in no acute distress at the time of my examination. HEENT: Head is atraumatic, normocephalic. Pupils equal, round. Sclera anicteric. Conjunctiva are clear. Mucous membranes of the mouth are moist. Neck is supple. There is no elevated jugular venous pressure. No carotid bruit is heard. HEART EXAMINATION: Heart S1 and S2 systolic ejection murmur is heard. CHEST EXAMINATION: Lungs are clear to auscultation and precussion. No chest wall tenderness is noted on palpation or with deep breathing. ABDOMEN: Soft, nontender. Bowel sounds are heard. No organomegaly noted. EXTREMITIES: 2+ peripheral pulses with no evidence of peripheral edema and no calf tenderness noted. NEUROLOGIC [patient is awake, alert, confused Results 08/14/18 03:01 08/16/18 05:52 Cardiac Enzymes 08/13/18 08/13/18 08/13/18 Range/Units 15:00 15:00 20:32 AST 31 (14-36) U/L CK-MB (CK-2) 0.9 0.9 (0.0-2.4) ng/mL Troponin I 0.107 H* 0.104 H* (0.000-0.034) ng/mL 08/14/18 Range/Units 03:01 AST (14-36) U/L CK-MB (CK-2) 1.2 (0.0-2.4) ng/mL Troponin I 0.120 H* (0.000-0.034) ng/mL Coagulation 08/13/18 Range/Units 15:00 PT 10.1 (9.0-12.0) sec APTT 23.9 (22.0-30.0) sec CBC 08/13/18 08/14/18 Range/Units 15:00 03:01 WBC 3.7 L 4.5 (3.8-10.6) k/uL RBC 3.81 3.68 L (3.80-5.40) m/uL Hgb 11.6 11.3 L (11.4-16.0) gm/dL Hct 34.0 33.9 L (34.0-46.0) % Plt Count 188 187 (150-450) k/uL Comprehensive Metabolic Panel 08/13/18 08/14/18 08/14/18 Range/Units 15:00 03:01 10:08 Sodium 127 L 130 L (137-145) mmol/L Potassium 3.9 3.4 L 4.0 (3.5-5.1) mmol/L Chloride 87 L 90 L (98-107) mmol/L Carbon Dioxide 30 29 (22-30) mmol/L BUN 28 H 24 H (7-17) mg/dL Creatinine 1.08 H 1.05 H (0.52-1.04) mg/dL Glucose 106 H 83 (74-99) mg/dL Calcium 9.4 9.3 (8.4-10.2) mg/dL AST 31 (14-36) U/L ALT 22 (9-52) U/L Alkaline Phosphatase 65 (38-126) U/L Total Protein 6.9 (6.3-8.2) g/dL Albumin 3.8 (3.5-5.0) g/dL Current Medications Generic Name Dose Route Start Last Admin Trade Name Freq PRN Reason Stop Dose Admin Acetaminophen 650 mg 08/14/18 06:05 Tylenol Tab PO Q6HR PRN Mild Pain or Fever > 100.5 Amlodipine Besylate 5 mg 08/14/18 09:00 Norvasc PO DAILY [facility] Aspirin 325 mg 08/14/18 09:00 08/14/18 09:25 Aspirin PO 325 mg DAILY [facility] Administration Carvedilol 3.125 mg 08/14/18 07:30 08/14/18 06:20 Coreg PO 3.125 mg BID-W/MEALS [facility] Administration Chlorthalidone 25 mg 08/14/18 09:00 08/14/18 09:25 Hygroton PO 25 mg DAILY [facility] Administration Heparin Sodium (Porcine) 5,000 unit 08/14/18 09:00 08/14/18 09:25 Heparin SQ 5,000 unit Q12HR [facility] Administration Sodium Chloride 1,000 mls @ 75 mls/hr 08/13/18 16:45 08/14/18 02:03 Saline 0.9% IV Not Given .[id number] [facility] Metformin HCl 1,000 mg 08/14/18 07:30 08/14/18 06:17 Glucophage PO Not Given BID-W/MEALS [facility] Naloxone HCl 0.2 mg 08/13/18 16:33 Narcan IV Q2M PRN Opioid Reversal Intake and Output 08/13/18 08/14/18 08/14/18 22:59 06:59 14:59 Intake Total 75 600 Output Total 850 Balance 75 -250 Intake: IV 75 600 Sodium Chloride 0.9% 1, 75 600 000 ml @ 75 mls/hr IV . [id number] [facility] Rx#:[id number] Output: Urine 850 Other: Voiding Method Indwelling Catheter Indwelling Catheter 08/14/18 03:01 08/14/18 10:08 EKG Interpretations (text) EKG shows a sinus bradycardia with a right bundle branch block pattern. Assessment and Plan Plan: Assessment and plan #1 mental status changes with evidence of hyponatremia #2 diabetes #3 history of ITP #4 hypertension #5 hyperlipidemia #6 aortic stenosis #7 hyperlipidemia #8 mild abnormality in troponin, not consistent with acute coronary syndrome Plan From cardiology's perspective, we'll continue current medical therapy. No further workup at this time. Follow-up with Dr. Pearson in the office. DNP note has been reviewed, I agree with a documented findings and plan of care. Patient was seen and examined.
[2018-08-16] MEDS: predniSONE 5 MG TAB PO SCH (12:40)
--- NOTE | 2018-08-16 15:17 | P.PN ---
Subjective Progress Note Date: 08/16/18 This is an 88-year-old female with known history of diabetes, hypertension, hyperlipidemia, prior CVA, GERD, dementia, who follows regularly with Dr. Pearson in the office. She was admitted to the hospital with mental status changes and increased fatigue and tiredness. Most of the history was obtained from the medical record as the patient is somewhat confused. Her EKG on presentation here revealed sinus bradycardia with a heart rate in the 50s, first-degree AV block and right bundle branch block pattern. Chest x-ray negative for any cardiopulmonary process. Sodium 127, potassium 3.9, BUN 28, creatinine 1.0. White blood cell count 3.7, hemoglobin 11.6, platelet count 188. Troponins 0.1 0.1 0.12. Drug screen negative. Patient had an echo cardiac gram with Doppler study performed in March of this year which revealed a normal left ventricular systolic function. At the time of my examination, patient appears comfortable. 08/16/2018 She was seen and examined this morning, sitting up in chair bedside. She feels well, no complaints. Blood pressure 140/60 with a heart rate in the 50s to 60s , 98% on room air. Sodium 134, potassium 3.5, BUN 12, creatinine 0.8. Objective - Vital Signs Vital signs: Vital Signs Temp 97.1 F L 08/16/18 11:28 Pulse 55 L 08/16/18 11:28 Resp 18 08/16/18 11:28 BP 141/64 08/16/18 11:28 Pulse Ox 98 08/16/18 11:28 Intake & Output 08/15/18 08/16/18 08/16/18 18:59 06:59 18:59 Intake Total 900 1102 Output Total 900 1450 Balance 0 -1450 1102 Weight 57 kg Intake: IV 600 922 Sodium Chloride 0.9% 1, 600 922 000 ml @ 75 mls/hr IV . [id number] [facility] Rx#:[id number] Oral 300 180 Output: Urine 900 1450 Other: Voiding Method Indwelling Catheter Indwelling Catheter Indwelling Catheter # Voids 2 1 - Exam PHYSICAL EXAMINATION: GENERAL: 88-year-old female in no acute distress at the time of my examination. HEENT: Head is atraumatic, normocephalic. Pupils equal, round. Sclera anicteric. Conjunctiva are clear. Mucous membranes of the mouth are moist. Neck is supple. There is no elevated jugular venous pressure. No carotid bruit is heard. HEART EXAMINATION: Heart S1 and S2 systolic ejection murmur is heard. CHEST EXAMINATION: Lungs are clear to auscultation and precussion. No chest wall tenderness is noted on palpation or with deep breathing. ABDOMEN: Soft, nontender. Bowel sounds are heard. No organomegaly noted. EXTREMITIES: 2+ peripheral pulses with no evidence of peripheral edema and no calf tenderness noted. NEUROLOGIC [patient is awake, alert, confused - Labs CBC & Chem 7: 08/14/18 03:01 08/16/18 05:52 Labs: Abnormal Lab Results - Last 24 Hours (Table) 08/15/18 08/15/18 08/16/18 Range/Units 17:05 20:29 05:52 Sodium 134 L (137-145) mmol/L POC Glucose (mg/dL) 136 H 268 H (75-99) mg/dL Osmolality 277 L (280-301) mosm/kg 08/16/18 Range/Units 11:16 Sodium (137-145) mmol/L POC Glucose (mg/dL) 135 H (75-99) mg/dL Osmolality (280-301) mosm/kg Assessment and Plan Plan: Assessment and plan #1 mental status changes with evidence of hyponatremia #2 diabetes #3 history of ITP #4 hypertension #5 hyperlipidemia #6 aortic stenosis #7 hyperlipidemia #8 mild abnormality in troponin, not consistent with acute coronary syndrome Plan From cardiology's perspective, we'll continue current medical therapy. No further workup at this time. Follow-up with Dr. Pearson in the office. We will follow this patient with you now on an as-needed basis only, please don't hesitate to call with any questions. DNP note has been reviewed, I agree with a documented findings and plan of care. Patient was seen and examined.
[2018-08-16 16:23] LABS: Glucose,Whole Blood 143 mg/dL (75-99)
--- NOTE | 2018-08-16 20:18 | PN ---
PROGRESS NOTE DATE OF SERVICE: 08/16/2018 PRESENTING COMPLAINT: Tired. INTERVAL HISTORY: Patient presented admitted with hyponatremia, uncontrolled blood pressure. Not too keen on eating. Sitting up, more comfortable. Planning for patient to go to [facility]. REVIEW OF SYSTEMS: Done for constitutional, cardiovascular, GI, pulmonary; relevant findings as above. CURRENT MEDICATIONS: Reviewed. They include: 1. Norvasc 5 mg b.i.d. 2. Coreg 3.125 twice a day. 3. Glucophage. 4. Normal saline. PHYSICAL EXAMINATION: Temperature 97.3, pulse 58, respiration 18, blood pressure 166/69, pulse ox 99% on room air. GENERAL APPEARANCE: Sitting up on a chair. Awake, quiet. EYES: Pupils equal. Conjunctivae normal. HEENT: External appearance of nose and ears normal. Oral cavity normal. NECK: JVD not raised. Mass not palpable. RESPIRATORY: Effort normal. Lungs are clear. CARDIOVASCULAR: First and second sounds normal. No edema. ABDOMEN: Soft, non-tender. Liver and spleen not palpable. PSYCHIATRY: Answering some simple questions. INVESTIGATIONS: Sodium 134, serum osmolality 277. ASSESSMENT: 1. Hyponatremia, hypo-osmolar, with some improvement. 2. Acute delirium with some improvement. 3. Hypochloremia. 4. Hypokalemia, now corrected. 5. Clinical dehydration on presentation with elevated BUN. 6. Normocytic anemia, cause undetermined. 7. Diabetes mellitus, type 2, on oral hypoglycemic. 8. 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 9. Essential hypertension. 10.Hyperlipidemia. 11.Primary osteoarthritis. 12.Chronic gout. 13.Chronic aortic stenosis, tricuspid regurgitation, non-rheumatic. 14.Chronic rosacea. 15.Chronic lower extremity varicose veins. PLAN: We will discontinue patient's sodium chloride today, given the low osmolality. Will add some sodium chloride tablets. The patient does not eat much; only drinks some liquids. That is probably also contributing. If she remains stable, will let the patient go to the [facility] tomorrow. MMODL / IJN: [id number] /
[2018-08-16 20:22] LABS: Glucose,Whole Blood 211 mg/dL (75-99)
[2018-08-16] MEDS ORDERED: INSULIN ASPART 100 UNIT/ML 1 ML 10 ML VIAL SQ SCH (21:52)
[2018-08-17 07:12] VITALS: RESP 16; TEMP 97.9
[2018-08-17] MEDS: amLODIPine 5 MG TAB PO SCH (07:25)
[2018-08-17] MEDS: predniSONE 5 MG TAB PO SCH (07:25)
[2018-08-17] MEDS: metFORMIN 500 MG TAB PO SCH (07:25)
[2018-08-17] MEDS: HEPARIN SODIUM,PORCINE 5,000 UNIT/ML 1 ML VIAL SQ SCH (07:25)
[2018-08-17] MEDS: INSULIN ASPART 100 UNIT/ML 1 ML 10 ML VIAL SQ SCH ×2 (07:25→12:49)
[2018-08-17] MEDS: CARVEDILOL 3.125 MG TAB PO SCH (07:25)
[2018-08-17 07:30] LABS: Glucose,Whole Blood 119 mg/dL (75-99)
[2018-08-17] MEDS ORDERED: SODIUM CHLORIDE TAB 1 GM TAB PO SCH (09:00)
[2018-08-17 10:09] LABS: Calcium 9.1 mg/dL (8.4-10.2); Potassium 3.7 mmol/L (3.5-5.1)
[2018-08-17 12:23] LABS: Glucose,Whole Blood 133 mg/dL (75-99)
[2018-08-17 14:31] VITALS: BP 124/58; PULSE 59
--- NOTE | 2018-08-17 15:19 | DS ---
DISCHARGE SUMMARY DATE OF ADMISSION: 08/13/2018. DATE OF DISCHARGE: 08/17/2018 FINAL DIAGNOSES: 1. Hyponatremia, hypo-osmolar causing weakness. 2. Acute delirium on presentation. 3. Hyperchloremia. 4. Hypokalemia. 5. Clinical dehydration on presentation with elevated BUN. 6. Normocytic anemia, cause undetermined. 7. Diabetes mellitus type 2, on oral hypoglycemic. 8. Idiopathic thrombocytopenic purpura, chronically on prednisone. 9. Essential hypertension. 10.Hyperlipidemia. 11.Primary osteoarthritis. 12.Chronic gout. 13.Chronic aortic stenosis, tricuspid regurgitation, nonrheumatic. 14.Chronic rosacea. 15.Chronic lower extremity varicose veins. HOSPITAL COURSE: The patient presented with increasing confusion, has got baseline cognitive impairment, more confused. Sodium was low, is currently 128. Patient's appetite is not the best. Salt tablets have been added. Overall prognosis is guarded. The patient admitted for troponin leak in the setting of renal failure. Not felt to be any significant. PHYSICAL EXAMINATION: Temperature 97.9, pulse 59, respiration 16, blood pressure 124/58, pulse ox 98% on room air. On exam, lungs are clear. CARDIOVASCULAR: First and second sounds are normal. Patient can answer only very basic questions. INVESTIGATIONS: White count 4.5, hemoglobin 11.3, potassium 4.0, BUN 24, creatinine 1.05. CONSULTATION: Dr. Ferguson from Cardiology. DISCHARGE MEDICATIONS: 1. Glucophage 1000 mg p.o. b.i.d. 2. Tylenol 650 mg q.6 p.r.n. 3. Coreg 3.125 p.o. b.i.d. 4. Prednisone 5 mg a day. 5. Sodium chloride 1 g p.o. b.i.d. 6. Norvasc 5 mg p.o. b.i.d. 7. Accu-Cheks daily. DISPOSITION: [facility]. FOLLOWUP: Follow up with Dr. Bain, follow up with Dr. Domenico Pearson in 2 weeks. MMODL / IJN: [id number] /
== END 2018-08-17 16:45 | DRG 641 ==
LOC: EC 14:03 → 3SCARD 16:33 → 4MS4W 08-16 18:24
PROVIDERS: ADMIT Hospitalist; ATTEND Hospitalist
DX: E87.1 Hypo-osmolality and hyponatremia (principal); I45.2 Bifascicular block; D69.3 Immune thrombocytopenic purpura; E86.0 Dehydration; I36.1 Nonrheumatic tricuspid (valve) insufficiency; E11.9 Type 2 diabetes mellitus without complications; D64.9 Anemia, unspecified; E78.5 Hyperlipidemia, unspecified; E87.6 Hypokalemia; I35.0 Nonrheumatic aortic (valve) stenosis; F03.90 Unspecified dementia, unspecified severity, without behavioral disturbance, psychotic disturbance, mood disturbance, and anxiety; E87.8 Other disorders of electrolyte and fluid balance, not elsewhere classified; I44.0 Atrioventricular block, first degree; I10 Essential (primary) hypertension; R32 Unspecified urinary incontinence; G43.909 Migraine, unspecified, not intractable, without status migrainosus; L71.9 Rosacea, unspecified; M19.91 Primary osteoarthritis, unspecified site; H91.90 Unspecified hearing loss, unspecified ear; K21.9 Gastro-esophageal reflux disease without esophagitis; M54.2 Cervicalgia; I83.90 Asymptomatic varicose veins of unspecified lower extremity; M1A.9XX0 Chronic gout, unspecified, without tophus (tophi); Z79.52 Long term (current) use of systemic steroids; Z79.84 Long term (current) use of oral hypoglycemic drugs; Z79.899 Other long term (current) drug therapy; Z91.81 History of falling; Z90.710 Acquired absence of both cervix and uterus; Z87.891 Personal history of nicotine dependence; Z86.59 Personal history of other mental and behavioral disorders; Z86.73 Personal history of transient ischemic attack (TIA), and cerebral infarction without residual deficits; Z87.440 Personal history of urinary (tract) infections; Z98.42 Cataract extraction status, left eye; Z98.41 Cataract extraction status, right eye; Z96.1 Presence of intraocular lens; Z88.6 Allergy status to analgesic agent; Z82.49 Family history of ischemic heart disease and other diseases of the circulatory system
CPT/HCPCS: 36415; 71046; 80048; 80053; 80306; 81001; 82550; 82553; 83036; 83930; 84132; 84484; 85025; 85610; 85730; 93005; 96372; 99285